=== PATIENT | male | born 1970 | race Caucasian/White ===

== ENCOUNTER 2016-07-01 01:06 | Inpatient (IN) ==
[2016-07-01] MEDS ORDERED: Ondansetron 4 MG/2 ML VIAL IVP ONE ×2 (01:15→02:33)
[2016-07-01] MEDS ORDERED: *HR* HYDROmorphone (PF) 1 MG/ML SYRINGE IVP ONE ×2 (01:15→02:33)
[2016-07-01] MEDS ORDERED: 0.9 % Sodium Chloride 1,000 ML IVC ONE (01:15)
[2016-07-01] MEDS ORDERED: *HR* Promethazine 25 MG/ML VIAL IVP ONE ×2 (01:16→04:34)
--- NOTE | 2016-07-01 01:30 | Emergency Department Note ---
Disposition Clinical Impression: Intractable pain Abdominal pain Qualifiers: Abdominal location: generalized Qualified Code(s): R10.84 - Generalized abdominal pain Nausea & vomiting Qualifiers: Vomiting type: unspecified Vomiting Intractability: unspecified Qualified Code( s): R11.2 - Nausea with vomiting, unspecified Disposition: Admitted As Inpatient Condition: Good Abdominal Pain HPI - General Chief Complaint: ED Abdominal Pain Stated Complaint: upper abdominal pain pancreatic cancer Time Seen by Provider: 07/01/16 01:15 Source: patient Mode of arrival: wheelchair Limitations: no limitations Nursing Notes Reviewed: Yes Vital Signs Reviewed: Yes - History of Present Illness HPI Narrative: 46-year-old male presents to the ER with a chief complaint of abdominal pain nausea and vomiting. Pt Subjective Complaint: abdominal pain Onset (ago): day(s) Consistency: constant Location: epigastric Pain Severity: severe Pain Scale: 9 Quality: stabbing Radiation: none Migration to: no migration Improves with: nothing Worsens with: nothing Context: other (History of pancreatic cancer.) Associated symptoms: Reports: nausea, vomiting. Denies: diarrhea, fever Treatments prior to arrival: none - Related Data Home Medications Medication Instructions Recorded Confirmed Atomoxetine HCl [Strattera] 100 mg PO DAILY 04/25/16 06/08/16 Ibuprofen [Motrin] 800 mg PO BID 04/25/16 06/08/16 Lansoprazole [Prevacid] 30 mg PO DAILY 04/25/16 06/08/16 Loratadine/Pseudoephedrine [[facility] 1 tab PO DAILY 04/25/16 06/08/16 Loratadine-D 24Hr Tablet] Docusate [Colace] 100 mg PO PRN PRN 06/01/16 06/08/16 Previous Rx's Medication Instructions Recorded OxyCODONE Immed Rel [Roxicodone 5 10 mg PO Q6HR PRN #60 tablet 04/27/16 MG] Ondansetron HCl [Zofran] 8 mg PO BID PRN #60 tablet 06/19/16 Ondansetron [Zofran] 8 mg PO BID PRN #60 tablet 06/19/16 Oxycodone HCl 2 tab PO Q6H PRN #240 tab 06/19/16 Promethazine [Phenergan] 25 mg PO Q4H PRN #180 tablet 06/19/16 Peg 3350/Na Sulf,Bicarb,Cl/KCl 4,000 ml PO ONCE #1 soln.recon 06/23/16 [Golytely Solution] FentaNYL PATCH [Duragesic] 50 mcg TD Q72H #10 patch.td72 06/25/16 Lubiprostone [Amitiza] 24 mcg PO BID #60 capsule 06/25/16 OxyCODONE ER (12 HR) [OxyCONTIN] 40 mg PO BID #60 tab.er.12h 06/25/16 PredniSONE 10 mg PO DAILY #30 tablet 06/25/16 Allergies Allergy/AdvReac Type Severity Reaction Status Date / Time hydrocodone Allergy Itching Verified 07/01/16 01:08 Iodinated Contrast Media - Allergy Rash Verified 07/01/16 01:08 Oral and Amoxicillin [From Augmentin] AdvReac Gastrointestinal Verified 07/01/16 01:08 Upset clavulanic acid AdvReac Gastrointestinal Verified 07/01/16 01:08 [From Augmentin] Upset codeine AdvReac Gastrointestinal Verified 07/01/16 01:08 Upset morphine AdvReac Nausea Verified 07/01/16 01:08 All systems ED: reviewed and negative except as stated. Constitutional: Denies: fever Cardiovascular: Denies: chest pain Respiratory: Denies: dyspnea Gastrointestinal: Reports: abdominal pain, nausea, vomiting. Denies: diarrhea Musculoskeletal: Denies: back pain Neurological: Reports: weakness Abdominal Pain PMH - Past Medical History Medical history: Reports: cancer, GERD, hyperlipidemia Reports: diverticulitis Male Surgical History: Reports: other (Partial colectomy) Psychiatric history: Reports: ADHD - Social History Smoking status: Never smoker Alcohol use: Reports: rarely Drug use: Reports: none Physical Exam - General Limitations: no limitations General appearance: alert, in distress - Head Head exam: atraumatic, normocephalic, normal inspection - Eye Eye exam: Present: normal appearance - ENT ENT exam: normal exam - Neck Neck exam: Present: normal inspection - Chest Chest inspection: Present: normal inspection, symmetric chest wall rise - Respiratory Respiratory exam: Present: normal lung sounds bilaterally - Cardiovascular Cardiovascular exam: Present: normal rhythm, tachycardia, normal heart sounds - Abdominal Exam Abdominal exam: Present: tenderness (Diffuse tenderness to palpation.), distention, hyperactive bowel sounds. Absent: guarding, rigidity - Extremities Exam Extremities exam: Present: normal inspection, full ROM - Expanded Lower Extremity Exam Hip/Pelvis exam: Present: normal inspection, full ROM Upper leg exam: Present: normal inspection, full ROM Knee exam: Present: normal inspection, full ROM Lower leg exam: Present: normal inspection, full ROM Ankle exam: Present: normal inspection, full ROM Foot/toe exam: Present: normal inspection, full ROM - Neurological Exam Neurological exam: Present: alert - Psychiatric Psychiatric exam: Present: normal affect, normal mood - Skin Skin exam: Present: warm, dry, intact, normal color Course Course Narrative: 46-year-old male history of pancreatic cancer presents to the ER with a chief complaint of abdominal pain nausea and vomiting. Patient reports that he has not had a true bowel movement in the last 3 weeks. He reports using enemas at home without success. He states that he has not had a bowel movement or passed flatus in the last 24 hours. He states that he has been nauseated and has not been able to keep anything down today. No recent illnesses. No fevers at home. No other complaints. Plan for patient is basic labs, IV for IV fluids pain medications and antiemetics. We will obtain a CT scan of the abdomen and pelvis due to concern for obstruction. - Reevaluation(s) Reevaluation #1: Discussed results of CT scan with the patient and family as well as lab work. Vital Signs Temperature 97.6 F 07/01/16 01:09 Pulse Rate 108 07/01/16 01:09 Respiratory Rate 18 07/01/16 01:09 Blood Pressure 154/122 07/01/16 01:09 O2 Sat by Pulse Oximetry 99 07/01/16 01:09 Temperature 97.6 F 07/01/16 01:09 Pulse Rate 70 07/01/16 02:30 Respiratory Rate 20 07/01/16 02:30 Blood Pressure 149/107 07/01/16 02:30 O2 Sat by Pulse Oximetry 100 07/01/16 02:30 Oxygen Delivery Oxygen Delivery Nasal Cannula Abdominal Pain - MDM Narrative Medical decision making narrative: 46-year-old male history of pancreatic cancer stage IV who presents to the ER due to abdominal pain nausea and vomiting. He was not having bowel movements so we saw the CT of the abdomen and pelvis which shows no obstruction but he does have some small bowel thickening, likely enteritis. He continues to have nausea here despite antiemetics. His pain is responsive to IV analgesics however he continues to have it despite multiple rounds of medications. Patient will be admitted to the hospital for intractable nausea and vomiting, intractable pain. - Lab Data Lab results reviewed: Yes I reviewed the patient's lab results. Result diagrams: 07/01/16 01:31 07/01/16 01:31 Lab Results 07/01/16 07/01/16 Range/Units 01:31 01:31 WBC 7.2 (4.3-11.1) K/mcL RBC 5.13 (4.19-5.50) M/mcL Hgb 15.5 D (12.9-16.9) g/dL Hct 44.5 (37.5-50.1) % MCV 86.7 (83.0-100.0) fL MCH 30.2 (28.0-33.3) pg MCHC 34.8 (31.6-35.5) g/dL RDW 12.1 (11.5-14.5) % Plt Count 401 H (140-400) K/mcL MPV 8.5 L (9.4-12.4) fL Immature Gran % 0.7 (0-4) % Seg Neutrophils % 74.3 % Lymphocytes % 10.7 % Monocytes % 14.0 % Eosinophils % 0.0 % Basophils % 0.3 % Neutrophils # 5.3 (1.6-8.9) K/mcL Lymphocytes # 0.8 (0.6-4.6) K/mcL Monocytes # 1.0 (0.0-1.3) K/mcL Eosinophils # 0.0 (0.0-0.6) K/mcL Basophils # 0.0 (0.0-0.2) K/mcL Immature Plt Fraction 1.6 (1.1-6.1) % Sodium 139 (136-145) mEq/L Potassium 3.6 (3.5-4.5) mEq/L Chloride 96 L (98-109) mEq/L Carbon Dioxide 31 H (19-29) mEq/L BUN 9 (8-26) mg/dL Creatinine 0.92 (0.72-1.25) mg/dL Est GFR ( Amer) > 60 (> 60) Est GFR (Non-Af Amer) > 60 (> 60) BUN/Creatinine Ratio 10 (6-26) Glucose 126 H (70-99) mg/dL Calculated Osmolality 288 (280-300) Calcium 10.1 (8.6-10.8) mg/dL Total Bilirubin 0.6 (0.2-1.2) mg/dL Direct Bilirubin 0.3 (0.0-0.5) mg/dL Indirect Bilirubin 0.3 (0.0-1.2) mg/dL AST 33 (5-34) Units/L ALT 46 (0-55) Units/L Alkaline Phosphatase 170 H (38-126) Units/L Serum Total Protein 7.1 (6.0-8.3) g/dL Albumin 3.4 L (3.5-5.0) g/dL Globulin 3.7 H (2.4-3.5) g/dL Albumin/Globulin Ratio 0.9 L (1.1-2.2) Amylase 32 (25-125) Units/L Lipase 7 L (8-78) Units/L - Radiology Data Radiology results reviewed: Yes I reviewed the patient's radiology results. Abdomen/Pelvis CT 07/01/16 01:19 IMPRESSION: Given differences in technique there is no significant change in the large mass within the distal body and tail of the pancreas Moderate to large amount of ascites with peritoneal implants, omental caking appears similar given differences in technique from the comparison Low-attenuation lesion within the liver does not appear to be significantly changed given differences in technique from the prior study suggestive of metastatic disease Increased of fluid-filled loops of small bowel with scattered air-fluid levels suggestive of a nonspecific enteritis. This is new from the comparison study D/ / Jon Banuelos MD / Jon Banuelos MD Interpreting Provider: Jon Banuelos MD S.B.A.R. - S.B.A.R. Situation: Demographics, MOA Background: Presenting Complaint, Relevant PMH, Meds, & Allergies Assessment: Vital Signs, Course and respsone to treatment, Exam Concerns, Patient/Family Expectation, Pertinant Lab Results, Outstanding Labs Recommendation: Barrier(s) to disposition, Recommendation based on pending studies, treatments, or consults S.B.A.R. Report Given to: Dr. Conley S.[email or web address] Repor Time: 03:14 (Request to give something for stool burden.)
[2016-07-01 01:59] LABS: Basophils % 0.3 %; Hematocrit 44.5 % (37.5-50.1); Hemoglobin 15.5 g/dL (12.9-16.9); Immature Granulocytes % 0.7 % (0-4); Immature Platelets 1.6 % (1.1-6.1); Lymphocytes # 0.8 K/mcL (0.6-4.6); Lymphocytes % 10.7 %; Mean Corpuscular HGB Conc 34.8 g/dL (31.6-35.5); Mean Corpuscular Hemoglobin 30.2 pg (28.0-33.3); Mean Corpuscular Volume 86.7 fL (83.0-100.0); Mean Platelet Volume 8.5 fL (9.4-12.4); Neutrophils # 5.3 K/mcL (1.6-8.9); Platelet Count 401 K/mcL (140-400); Red Blood Count 5.13 M/mcL (4.19-5.50); Red Cell Distribution Width 12.1 % (11.5-14.5); Segmented Neutrophils % 74.3 %
--- NOTE | 2016-07-01 02:00 | Emergency Department Note ---
START Narrative - START START: examined this patient and my medical decision-making was reviewed with the FOOD AND NUTRITION SERVICES SUPERVISOR /PA/Advanced Practice Nurse/Resident Physician. I agree with the documented findings, disposition and treatment plan as described except to the extent set forth below. ED attending note: Patient seen with emergency medicine resident Dr. Beckford. Please see a copy of his note for details of the H&P, evaluation, management and disposition of this patient. 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 Presents with inability to keep down by mouth fluids were current vomiting episodes abdominal pain. Patient is ill-appearing patient is getting IV fluids and analgesics and antiemetics screening blood work and a noncontrast abdominal pelvic CT. Disposition pending.
[2016-07-01 02:13] LABS: Alanine Aminotransferase 46 Units/L (0-55); Albumin 3.4 g/dL (3.5-5.0); Albumin/Globulin Ratio 0.9 (1.1-2.2); Alkaline Phosphatase 170 Units/L (38-126); Amylase 32 Units/L (25-125); Aspartate Amino Transferase 33 Units/L (5-34); BUN/Creatinine Ratio 10 (6-26); Bilirubin,Direct 0.3 mg/dL (0.0-0.5); Bilirubin,Indirect 0.3 mg/dL (0.0-1.2); Bilirubin,Total 0.6 mg/dL (0.2-1.2); Blood Urea Nitrogen 9 mg/dL (8-26); Calcium 10.1 mg/dL (8.6-10.8); Carbon Dioxide 31 mEq/L (19-29); Chloride 96 mEq/L (98-109); Globulin 3.7 g/dL (2.4-3.5); Glucose 126 mg/dL (70-99); Lipase 7 Units/L (8-78); Osmolality,Calculated 288 (280-300); Potassium 3.6 mEq/L (3.5-4.5); Sodium 139 mEq/L (136-145); Total Protein 7.1 g/dL (6.0-8.3); eGFR For African Americans > 60 (> 60); eGFR For Non-African Americans > 60 (> 60)
[2016-07-01 04:12] LABS: Bilirubin,Urine Negative (Negative); Blood,Urine Negative (Negative); Color,Urine Yellow (Yellow); Glucose,Urine (UA) Normal (Normal); Ketones,Urine Negative (Negative); Leukocyte Esterase,Urine Negative (Negative); Nitrite,Urine Negative (Negative); Protein,Urine Negative (Neg-Trace); Specific Gravity,Urine 1.013 (1.010-1.025); Urobilinogen,Urine Normal (Normal)
[2016-07-01 04:14] LABS: Hyaline Casts,Urine None Seen per lpf (None-Few); RBC,Urine 0-3 per hpf (0-3); Squamous Epithelial Cell,Urine Moderate per lpf (None-Few)
[2016-07-01 04:18] LABS: Clarity,Urine Slightly Hazy (Clear)
[2016-07-01 04:29] LABS: Bacteria,Urine Few per hpf (None-Few)
[2016-07-01] MEDS ORDERED: *HR* HYDROmorphone 2 MG/ML SYRINGE IVP ONE (04:34)
[2016-07-01] MEDS ORDERED: *HR* Promethazine 25 MG/ML VIAL IVP PRN (04:46)
[2016-07-01] MEDS ORDERED: Naloxone 0.4 MG/ML INJ IVP PRN (04:46)
[2016-07-01] MEDS ORDERED: *HR* FentaNYL PATCH 50 MCG PATCH TD SCH (05:00)
--- NOTE | 2016-07-01 05:06 | Internal Med History&Physical ---
Date of Encounter: 07/01/16 Time of Encounter: 04:56 Assessment and Plan (1) Intractable pain Current visit: Yes Status: Acute 1. Will start with IV Dilaudid and continue his Fentayl patch. 2. Pt unable to take his home oral meds due to protracted N/V and pain. 3. Adjust pain control as necessary to achieve comfort. Note, patient on high dose opiates at home and has high tolerance. 4. If unable to achieve pain control as above, patient may be candidate for PICK UP AND DELIVERY DRIVER pump. 5. Strict npo except ice chips. 6. Consult general surgery to assist with abdominal pain and for consideration of colonic disimpaction via endoscopy if surgery concurs. 7. Patient may benefit from therapeutic paracentesis again. (2) Nausea & vomiting Current visit: Yes Status: Acute 1. Will treat with Phenergan IV. 2. Add IV PPI. 3. npo for now. Qualifiers: Vomiting type: unspecified Vomiting Intractability: intractable Qualified Code(s): R11.2 - Nausea with vomiting, unspecified (3) Pancreatic cancer Current visit: No Status: Acute 1. Patient follows with oncology as outpatient. 2. Pt may consider palliative chemotherapy (as offered previously). Pt to discuss at follow up. Qualifiers: Pancreatic malignancy location: tail of pancreas Qualified Code(s): C25.2 - Malignant neoplasm of tail of pancreas (4) Chronic steroid use Current visit: Yes Status: Acute 1. Reportedly, patient has only been on Prednisone for the last 4-5 days. 2. Will continue on Solumedrol IV for now and consider tapering off quickly unless otherwise directed by oncology. (5) DVT prophylaxis Current visit: Yes Status: Acute 1. Heparin SQ. Internal Medicine - H&P: HPI Chief complaint: intractable nausea, vomiting, abdominal pain Admitted From: Emergency Dept Plans for Post Hospital Care: Home History of present illness: Mr. Sosa is a 46 year old male who presents to the ER [facility] with complaints of intractable nausea, vomiting, and abdominal pain. Symptoms started several days ago and have progressively worsened despite antiemetics, pain control, and attempts at oral hydration. Unfortunately, he was recently diagnosed with stage IV pancreatic cancer and recently had a therapeutic paracentesis earlier this week for development of ascites. He now has worsening symptoms and he states he has not had a bowel movement in over 3 weeks. He's been unable to pass flatus until this evening in the ER. CT scan done in ER does not suggest obstruction. However, he does have some findings concerning for enteritis and significant constipation. Because of these findings and symptoms, patient was admitted to the hospitalist service. Regarding his pancreatic cancer, he unfortunately is not a candidate for any curative measures. He has been offered chemotherapy, but he has yet to proceed. Past Med Surg Social Fam HX - Past Medical History Attestation: Yes The following information was validated with the patient. Source: patient, old records reviewed Medical history: cancer (stage IV pancreatic), GERD, hyperlipidemia Psychiatric history: ADHD - Past Surgical History Surgical History: orthopedic, other (3 knee surgeries and right thumb surgery, dental implants), other (Diverticular abscess status post sigmoid resection in 2005) - Social History Smoking Status: Never smoker Smokeless Tobacco Status: No Alcohol use: rarely Drug use: none Current living situation: Home, With Family Activity Level: Independent ambulation Recent Out of Country Travel Within the Last 8 Weeks: No - Family History Mother Living Status: Hx Family Cardiac Disorders: Yes (HTN) Hx Family Cancer: Yes (Colon) Hx Family Endocrine Disorder: Yes (Diabetes) Father Living Status: Hx Family Cardiac Disorders: Yes (CAD, AFIB) Hx Family Endocrine Disorder: Yes (cromegaly) Internal Medicine - H&P: Meds Atomoxetine HCl [Strattera] 100 mg PO DAILY 04/25/16 [History] Ibuprofen [Motrin] 800 mg PO BID 04/25/16 [History] Lansoprazole [Prevacid] 30 mg PO DAILY 04/25/16 [History] Loratadine/Pseudoephedrine [[facility]vs Loratadine-D 24Hr Tablet] 1 tab PO DAILY [History] OxyCODONE Immed Rel [Roxicodone 5 MG] 10 mg PO Q6HR PRN #60 tablet 04/27/16 [Rx] Docusate [Colace] 100 mg PO PRN PRN 06/01/16 [History] Ondansetron HCl [Zofran] 8 mg PO BID PRN #60 tablet 06/19/16 [Rx] Ondansetron [Zofran] 8 mg PO BID PRN #60 tablet 06/19/16 [Rx] Oxycodone HCl 2 tab PO Q6H PRN #240 tab 06/19/16 [Rx] Promethazine [Phenergan] 25 mg PO Q4H PRN #180 tablet 06/19/16 [Rx] Peg 3350/Na Sulf,Bicarb,Cl/KCl [Golytely Solution] 4,000 ml PO ONCE #1 soln.recon 06/23/16 [Rx] FentaNYL PATCH [Duragesic] 50 mcg TD Q72H #10 patch.td72 06/25/16 [Rx] Lubiprostone [Amitiza] 24 mcg PO BID #60 capsule 06/25/16 [Rx] OxyCODONE ER (12 HR) [OxyCONTIN] 40 mg PO BID #60 tab.er.12h 06/25/16 [Rx] PredniSONE 10 mg PO DAILY #30 tablet 06/25/16 [Rx] Allergies hydrocodone Allergy (Verified 07/01/16 01:08) Itching Iodinated Contrast Media - Oral and Allergy (Verified 07/01/16 01:08) Rash Amoxicillin [From Augmentin] Adverse Reaction (Verified 07/01/16 01:08) Gastrointestinal Upset clavulanic acid [From Augmentin] Adverse Reaction (Verified 07/01/16 01:08) Gastrointestinal Upset codeine Adverse Reaction (Verified 07/01/16 01:08) Gastrointestinal Upset morphine Adverse Reaction (Verified 07/01/16 01:08) Nausea - Constitutional Constitutional: no chills, no fever(s) - EENT Eyes: no change in vision Ears: no ear pain, no tinnitus Nose, mouth and throat: no nasal congestion, no sinus pressure, no sore throat - Cardiovascular Cardiovascular ROS IM: no chest pain, no dyspnea - Respiratory Respiratory: no cough, no dyspnea, no hemoptysis, no chest congestion - Gastrointestinal Gastrointestinal: abdominal pain, bloating, nausea, vomiting, no diarrhea, no hematemesis, no hematochezia - Genitourinary Genitourinary ROS male: no dysuria, no hematuria - Musculoskeletal Musculoskeletal ROS IM: no arthralgias, no myalgias - Integumentary Integumentary IM: no rash, no jaundice - Neurological Neurological ROS: no dizziness, no focal weakness, no frequent falls - Psychiatric Psychiatric: no anxiety, no depression - Endocrine Endocrine IM: no polydipsia, no polyuria - Constitutional Vitals: Temp Pulse Resp BP Pulse Ox 97.8 F 91 22 146/109 100 07/01/16 04:18 07/01/16 04:18 07/01/16 04:18 07/01/16 04:18 07/01/16 04:18 General appearance: Present: cooperative, mild distress, A&O X 3, pleasant, answers questions appropriately Exam: looks dehydrated - Head Head exam: Present: atraumatic, normal inspection - Expanded Head Exam Head exam expanded: Absent: abrasion, general tenderness - Eye Eye exam: Present: EOMI, PERRL. Absent: scleral icterus Pupils: Present: normal accommodation - ENT ENT exam: Present: mucous membranes dry, normal exam, normal oropharynx - Neck Neck exam general surgery: Present: full ROM, supple. Absent: lymphadenopathy, tenderness - Respiratory Respiratory exam: Present: CTAB. Absent: rales, respiratory distress, rhonchi, wheezes - Cardiovascular Cardiovascular exam: Present: RRR, +S1, +S2. Absent: diastolic murmur, systolic murmur - GI/Abdominal GI/Abdominal exam: Present: distended, hypoactive bowel sounds, tenderness, no peritoneal signs. Absent: guarding, rebound Additional comments: + shifting dullness suggesting ascites; moderate distension; no rebound or guarding; + bowel sounds and patient is passing some flatus now - Extremities Exam Extremities exam: Present: warm. Absent: calf tenderness, pedal edema, tenderness - Back Exam Back exam: Present: normal inspection. Absent: CVA tenderness (L), CVA tenderness (R) - Neurological Exam Neurological exam: Present: alert, CN II-XII intact, oriented X3, no focal deficits - Psychiatric Psychiatric exam: Present: normal affect, normal mood - Skin Skin exam: Present: dry, warm. Absent: rash Internal Med - H&P Results - Labs CBC & Chem 7: 07/01/16 01:31 07/01/16 01:31 Labs: Urine 07/01/16 Range/Units 04:00 Urine Color Yellow (Yellow) Urine Clarity Slightly Hazy (Clear) Urine pH 7.0 (5.0-8.0) pH Units Ur Specific Garber 1.013 (1.010-1.025) Urine Protein Negative (Neg-Trace) mg/dL Urine Glucose (UA) Normal (Normal) mg/dL - Diagnostic Studies CT scan - abdomen Status: image reviewed by me (significant stool noted, loops of bowel with fluid but no obvious obstruciton; report reviewed)
[2016-07-01] MEDS: 0.9 % Sodium Chloride w KCl 20 MEQ/1,000 ML MLS IVC SCH ×3 (05:24→23:00)
[2016-07-01] MEDS ORDERED: Pantoprazole 40 MG VIAL IVP SCH (06:30)
[2016-07-01] MEDS: *HR* Heparin 5,000 UNIT/ML VIAL SQ SCH ×2 (06:30→18:03)
[2016-07-01] MEDS: *HR* HYDROmorphone (PF) 1 MG/ML SYRINGE IVP PRN ×2 (07:40→10:03)
[2016-07-01] MEDS: MethylPREDNISolone 40 MG/ML VIAL IVP SCH (07:40)
[2016-07-01] MEDS ORDERED: Milk and Molasses Enema 200 ML RC ONE ×2 (08:10→11:01)
[2016-07-01] MEDS ORDERED: SODIUM CHLORIDE/NAHCO3/KCL/PEG 4,000 ML SOLN.RECON PO ONE (08:11)
[2016-07-01] MEDS ORDERED: Sucralfate 1 GM TABLET PO SCH (08:13)
[2016-07-01] MEDS: Pantoprazole 40 MG VIAL IVP SCH ×2 (08:53→19:54)
[2016-07-01] MEDS: Nystatin SUSP 5 ML UD.LIQ PO SCH ×5 (09:05→20:00)
[2016-07-01] MEDS ORDERED: *HR* HYDROmorphone 2 MG/ML SYRINGE IVP PRN (10:33)
[2016-07-01] MEDS: Ondansetron 4 MG/2 ML VIAL IVP PRN ×2 (10:46→16:47)
--- NOTE | 2016-07-01 11:55 | General Surgery Consult Note ---
<Jon Dennison - Last Filed: 07/01/16 12:08> Date of Encounter: 07/01/16 Time of Encounter: 10:50 Assessment and Plan (1) Obstipation Current Visit: Yes Status: Acute No bowel movement for the past 3 weeks. Began passing flatus. Milk of molasses enema x2. If no improvement will consult IR for therapeutic barium enema. (2) Intractable pain Current Visit: Yes Status: Acute Patient is on multiple PO and IV pain medications, which is likely the cause of his obstipation. Unable to rule out obstruction at this time. (3) Nausea & vomiting Current Visit: Yes Status: Acute Management per medicine team. NPO at this time. Qualifiers: Vomiting type: unspecified Vomiting Intractability: intractable Qualified Code(s): R11.2 - Nausea with vomiting, unspecified (4) Pancreatic cancer Current Visit: No Status: Acute Management per medicine team. Patient following with oncology as outpatient. Qualifiers: Pancreatic malignancy location: tail of pancreas Qualified Code(s): C25.2 - Malignant neoplasm of tail of pancreas (5) DVT prophylaxis Current Visit: Yes Status: Acute Heparin SQ History of Present Illness Consult date: 07/01/16 Reason for consult: abdominal pain (intractable) Requesting physician: Marshal Villela History of present illness: This is a 46 year old male with stage 4 metastatic pancreatic cancer with intractable abdominal pain. He states that he has not had a bowel movement in the past 3 weeks despite trying Magnesium citrate, dulcolax, fleet enemas, coffee enemas, soap suds enemas, and glycerin suppositories. He complains of mid abdominal pain that radiates to the RLQ that is constant and severe. CT of the abdomen demonstrated inflammation in the terminal ileum. Additionally he reports nausea and inability to keep down food for the last day. He denies fevers and chills. He has not been passing flatus until his arrival to the ED. Past Med Surg Social Fam HX - Past Medical History Medical history: cancer (stage IV pancreatic), GERD, hyperlipidemia Psychiatric history: ADHD - Past Surgical History Surgical History: orthopedic, other (3 knee surgeries and right thumb surgery, dental implants), other (Diverticular abscess status post sigmoid resection in 2005) - Social History Smoking Status: Never smoker Smokeless Tobacco Status: No Alcohol use: rarely Drug use: none - Family History Mother Living Status: Hx Family Cardiac Disorders: Yes (HTN) Hx Family Cancer: Yes (Colon) Hx Family Endocrine Disorder: Yes (Diabetes) Father Living Status: Hx Family Cardiac Disorders: Yes (CAD, AFIB) Hx Family Endocrine Disorder: Yes (cromegaly) Medications and Allergies Atomoxetine HCl [Strattera] 100 mg PO DAILY 04/25/16 [History] Ibuprofen [Motrin] 800 mg PO BID 04/25/16 [History] Lansoprazole [Prevacid] 30 mg PO DAILY 04/25/16 [History] Loratadine/Pseudoephedrine [Cvs Loratadine-D 24Hr Tablet] 1 tab PO DAILY [History] Docusate [Colace] 100 mg PO PRN PRN 06/01/16 [History] Ondansetron HCl [Zofran] 8 mg PO BID PRN #60 tablet 06/19/16 [Rx] Oxycodone HCl 2 tab PO Q6H PRN #240 tab 06/19/16 [Rx] Promethazine [Phenergan] 25 mg PO Q4H PRN #180 tablet 06/19/16 [Rx] FentaNYL PATCH [Duragesic] 50 mcg TD Q72H #10 patch.td72 06/25/16 [Rx] Lubiprostone [Amitiza] 24 mcg PO BID #60 capsule 06/25/16 [Rx] OxyCODONE ER (12 HR) [OxyCONTIN] 40 mg PO BID #60 tab.er.12h 06/25/16 [Rx] PredniSONE 10 mg PO DAILY #30 tablet 06/25/16 [Rx] Allergies hydrocodone Allergy (Verified 07/01/16 01:08) Itching Iodinated Contrast Media - Oral and Allergy (Verified 07/01/16 01:08) Rash Amoxicillin [From Augmentin] Adverse Reaction (Verified 07/01/16 01:08) Gastrointestinal Upset clavulanic acid [From Augmentin] Adverse Reaction (Verified 07/01/16 01:08) Gastrointestinal Upset codeine Adverse Reaction (Verified 07/01/16 01:08) Gastrointestinal Upset morphine Adverse Reaction (Verified 07/01/16 01:08) Nausea Review of Systems All systems PM: A 10-system review of systems was performed and is negative for pertinent findings except as documented above in the HPI. - Constitutional no chills, no fever(s) - Cardiovascular no chest pain, no dyspnea - Respiratory no cough, no dyspnea - Gastrointestinal abdominal pain, bloating, nausea, vomiting, no hematochezia - Genitourinary no dysuria, no hematuria - Musculoskeletal no arthralgias, no myalgias - Integumentary no rash, no jaundice - Neurological no dizziness General Surgery Exam Initial Vital Signs Temp Pulse Resp BP Pulse Ox 97.6 F 108 18 154/122 99 07/01/16 01:09 07/01/16 01:09 07/01/16 01:09 07/01/16 01:09 07/01/16 01:09 - General physical appearance well developed, well nourished, no distress - Eyes normal ocular movement - ENT normal mucosa, atraumatic, normocephalic - Neck trachea midline - Respiratory normal respiratory effort, clear to auscultation - Cardiovascular Cardiovascular exam: Present: RRR - Abdomen Abdomen general surgery: Present: bowel sounds present (hypoactive), soft, distended Abdominal Tenderness: Present: epigastic, RLQ - Integumentary Integumentary general surgery: Present: warm and dry - Neurologic Present: CN 2-12 grossly intact - Musculoskeletal Present: normal posture - Psychiatric Psychiatric general surgery: Present: appropriate, oriented to person, oriented to place, oriented to time, speech is normal, memory intact Exam Initial Vital Signs Temp Pulse Resp BP Pulse Ox 97.6 F 108 18 154/122 99 07/01/16 01:09 07/01/16 01:09 07/01/16 01:09 07/01/16 01:09 07/01/16 01:09 Results - Labs 07/01/16 01:31 07/01/16 01:31 Abnormal lab results Plt Count 401 K/mcL (140-400) H 07/01/16 01:31 MPV 8.5 fL (9.4-12.4) L 07/01/16 01:31 Chloride 96 mEq/L (98-109) L 07/01/16 01:31 Carbon Dioxide 31 mEq/L (19-29) H 07/01/16 01:31 Glucose 126 mg/dL (70-99) H 07/01/16 01:31 Alkaline Phosphatase 170 Units/L (38-126) H 07/01/16 01:31 Albumin 3.4 g/dL (3.5-5.0) L 07/01/16 01:31 Globulin 3.7 g/dL (2.4-3.5) H 07/01/16 01:31 Albumin/Globulin Ratio 0.9 (1.1-2.2) L 07/01/16 01:31 Lipase 7 Units/L (8-78) L 07/01/16 01:31 Ur Squamous Epith Cells Moderate per lpf (None-Few) H 07/01/16 04:00 All other labs normal. Consult Discharge Plan - Plan Referrals: Saundra Stahl MD [Primary Care Provider] - - Attending Attestation I examined this patient and my medical decision-making was reviewed with the LOOM OPERATOR/PA/Advanced Practice Nurse/Resident Physician. I agree with the documented findings, disposition and treatment plan as described except to the extent set forth below. <Cyn Farrell L - Last Filed: 07/02/16 10:51> Date of Encounter: 07/01/16 Assessment and Plan (1) Obstipation Current Visit: Yes Status: Acute will start po go lytely bowel prep and let him sip on it, clear diet will do 2 milk of molassess enemas, if no significant results I will call IR and ask them to come do a therapuetic BE as pt is miserable no signs of perforation, wbc normal, vitals wnl rectal exam showed no stool in rectal vault so unable to disimpact in OR History of Present Illness History of present illness: pt is 46 yo with widely metastatic pancreatic cancer. Has not received any treatment or chemotherapy to date. Has been taking high doses of narcotics to help control his abdominal pain. Has not had a bm in 3 weeks despite multiple outpatient OTC therapies as mentioned by the resident. He is having significant nausea and vomiting and having difficulty keeping anything down po. Past Med Surg Social Fam HX - Past Medical History Source: patient Medical history: cancer (metastatic pancreatic cancer) Review of Systems All systems PM: reviewed and no additional remarkable complaints except as stated All systems PM: A 10-system review of systems was performed and is negative for pertinent findings except as documented above in the HPI. General Surgery Exam Initial Vital Signs Temp Pulse Resp BP Pulse Ox 97.6 F 108 18 154/122 99 07/01/16 01:09 07/01/16 01:09 07/01/16 01:09 07/01/16 01:09 07/01/16 01:09 - General physical appearance well developed, well nourished, moderate distress, moderate pain - Eyes PERRL, normal ocular movement - ENT normal mucosa, atraumatic, normocephalic - Neck trachea midline - Respiratory normal expansion, clear to auscultation - Cardiovascular Cardiovascular exam: Present: no murmurs/rubs/gallops - Abdomen Abdomen general surgery: Present: soft, distended, tender (mildly and diffusely) - Rectum Rectum: Present: other (no stool in rectal vault) - Integumentary Integumentary general surgery: Present: warm and dry - Neurologic Present: CN 2-12 grossly intact - Musculoskeletal Present: normal posture - Psychiatric Psychiatric general surgery: Present: A&Ox3, speech is normal Exam Initial Vital Signs Temp Pulse Resp BP Pulse Ox 97.6 F 108 18 154/122 99 07/01/16 01:09 07/01/16 01:09 07/01/16 01:09 07/01/16 01:09 07/01/16 01:09 Results - Labs 07/02/16 05:16 07/02/16 05:16 Short CBC 07/01/16 Range/Units 01:31 WBC 7.2 (4.3-11.1) K/mcL Hgb 15.5 D (12.9-16.9) g/dL Hct 44.5 (37.5-50.1) % Plt Count 401 H (140-400) K/mcL Neutrophils # 5.3 (1.6-8.9) K/mcL BMP 07/01/16 Range/Units 01:31 Sodium 139 (136-145) mEq/L Potassium 3.6 (3.5-4.5) mEq/L Chloride 96 L (98-109) mEq/L Carbon Dioxide 31 H (19-29) mEq/L BUN 9 (8-26) mg/dL Creatinine 0.92 (0.72-1.25) mg/dL Glucose 126 H (70-99) mg/dL Calcium 10.1 (8.6-10.8) mg/dL Liver Function 07/01/16 Range/Units 01:31 Total Bilirubin 0.6 (0.2-1.2) mg/dL Direct Bilirubin 0.3 (0.0-0.5) mg/dL AST 33 (5-34) Units/L ALT 46 (0-55) Units/L Alkaline Phosphatase 170 H (38-126) Units/L Albumin 3.4 L (3.5-5.0) g/dL Urine 07/01/16 Range/Units 04:00 Urine Color Yellow (Yellow) Urine Clarity Slightly Hazy (Clear) Urine pH 7.0 (5.0-8.0) pH Units Ur Specific [place] 1.013 (1.010-1.025) Urine Protein Negative (Neg-Trace) mg/dL Urine Glucose (UA) Normal (Normal) mg/dL Vital Signs Temp Pulse Resp BP Pulse Ox 07/01/16 10:58 97.8 F 80 16 158/112 100 07/01/16 07:20 97.6 F 91 16 160/115 100 07/01/16 04:18 97.8 F 91 22 146/109 100 07/01/16 03:37 20 155/110 07/01/16 02:30 70 20 149/107 100 07/01/16 02:00 82 20 149/113 94 L 07/01/16 01:30 96 20 146/121 98 07/01/16 01:20 100 07/01/16 01:15 99 20 139/107 100 07/01/16 01:09 97.6 F 108 18 154/122 99 Intake and Output 06/30/16 07/01/16 07/01/16 23:59 07:59 15:59 Intake Total 1000 / 1000 572 / 572 Output Total 0 / 0 Balance 1000 / 1000 572 / 572 Intake: IV Fluids 1000 / 1000 512 / 512 0.9 % Sodium Chloride 1, 1000 / 1000 000 ML @ 3750 mls/hr IVC .Q16M ONE Rx#:[id number] KCl 20 mEq in 0.9% Sodium 512 / 512 Chloride 20 meq In 1,000 ml @ 125 mls/hr IVC .Q8H TAMARA Rx#:[id number] Oral 0 / 0 60 / 60 Output: Urine 0 / 0 Other: Meal ice chips Percent of Meal Consumed 0% Stool Characteristics Normal for Patient Stool Color Brown # Voids 1 1 Weight 77.519 kg Patient Weight 07/01/16 23:59 Weight 77.519 kg - Imaging CT scan - abdomen: report reviewed, image reviewed CT scan - pelvis: report reviewed, image reviewed Additional studies: Abdomen/Pelvis CT 07/01/16 01:19 IMPRESSION: Given differences in technique, there is no significant change in the large mass within the distal body and tail of the pancreas. Moderate to large amount of ascites with peritoneal implants and omental caking, which appears similar given differences in technique from the comparison. Low-attenuation lesion within the liver does not appear to be significantly changed, given differences in technique from the prior study, suggestive of metastatic disease Increased fluid-filled loops of small bowel with scattered air-fluid levels, suggestive of a nonspecific enteritis. This is new from the comparison study. D/ / 07/01/2016 07:44:38 Jon Banuelos MD / ben Interpreting Provider: Jon Banuelos MD
[2016-07-01] MEDS ORDERED: *HR* Promethazine 25 MG/ML VIAL ONE (13:28)
[2016-07-01] MEDS: *HR* Promethazine 25 MG/ML VIAL IVP SCH ×2 (13:44→19:59)
--- NOTE | 2016-07-01 14:51 | Palliative - Consult Note ---
Date of Encounter: 07/01/16 Time of Encounter: 14:45 Palliative-CN HPI - Data of Consult Requesting Physician: Maggy Velazquez Primary Care Provider: Saundra [facility] - Consult Narrative History of present illness: Mr. Sosa is a 46 year old male CC: Maggy Velazquez Past Med Surg Social Fam HX - Past Medical History Medical history: cancer (stage IV pancreatic), GERD, hyperlipidemia Psychiatric history: ADHD - Past Surgical History Surgical History: orthopedic, other (3 knee surgeries and right thumb surgery, dental implants), other (Diverticular abscess status post sigmoid resection in 2005) - Social History Smoking Status: Never smoker Smokeless Tobacco Status: No Alcohol use: rarely Drug use: none - Family History Mother Living Status: Hx Family Cardiac Disorders: Yes (HTN) Hx Family Cancer: Yes (Colon) Hx Family Endocrine Disorder: Yes (Diabetes) Father Living Status: Hx Family Cardiac Disorders: Yes (CAD, AFIB) Hx Family Endocrine Disorder: Yes (cromegaly) Medications and Allergies Atomoxetine HCl [Strattera] 100 mg PO DAILY 04/25/16 [History] Ibuprofen [Motrin] 800 mg PO BID 04/25/16 [History] Lansoprazole [Prevacid] 30 mg PO DAILY 04/25/16 [History] Loratadine/Pseudoephedrine [Cvs Loratadine-D 24Hr Tablet] 1 tab PO DAILY [History] Docusate [Colace] 100 mg PO PRN PRN 06/01/16 [History] Ondansetron HCl [Zofran] 8 mg PO BID PRN #60 tablet 06/19/16 [Rx] Oxycodone HCl 2 tab PO Q6H PRN #240 tab 06/19/16 [Rx] Promethazine [Phenergan] 25 mg PO Q4H PRN #180 tablet 06/19/16 [Rx] FentaNYL PATCH [Duragesic] 50 mcg TD Q72H #10 patch.td72 06/25/16 [Rx] Lubiprostone [Amitiza] 24 mcg PO BID #60 capsule 06/25/16 [Rx] OxyCODONE ER (12 HR) [OxyCONTIN] 40 mg PO BID #60 tab.er.12h 06/25/16 [Rx] PredniSONE 10 mg PO DAILY #30 tablet 06/25/16 [Rx] Allergies hydrocodone Allergy (Verified 07/01/16 01:08) Itching Iodinated Contrast Media - Oral and Allergy (Verified 07/01/16 01:08) Rash Amoxicillin [From Augmentin] Adverse Reaction (Verified 07/01/16 01:08) Gastrointestinal Upset clavulanic acid [From Augmentin] Adverse Reaction (Verified 07/01/16 01:08) Gastrointestinal Upset codeine Adverse Reaction (Verified 07/01/16 01:08) Gastrointestinal Upset morphine Adverse Reaction (Verified 07/01/16 01:08) Nausea Palliative Care-Exam - Constitutional Vitals: Temp Pulse Resp BP Pulse Ox 97.8 F 80 16 158/112 100 07/01/16 10:58 07/01/16 10:58 07/01/16 10:58 07/01/16 10:58 07/01/16 10:58 Internal Medicine - CN: Reslt - Labs CBC & Chem 7: 07/01/16 01:31 07/01/16 01:31 Labs: Urine 07/01/16 Range/Units 04:00 Urine Color Yellow (Yellow) Urine Clarity Slightly Hazy (Clear) Urine pH 7.0 (5.0-8.0) pH Units Ur Specific [place] 1.013 (1.010-1.025) Urine Protein Negative (Neg-Trace) mg/dL Urine Glucose (UA) Normal (Normal) mg/dL Consult Discharge Plan - Plan Referrals: Saundra Stahl MD [Primary Care Provider] - Palliative Quality Code Status: 07/01/16 04:46 Resuscitation Status: Active [RES] Routine Comment: Resuscitation Status: Full Code
--- NOTE | 2016-07-01 15:02 | Palliative - Consult Note ---
Date of Encounter: 07/01/16 Time of Encounter: 14:50 - Assessment and Plan (1) Cancer associated pain Current Visit: Yes Status: Acute Assessment and plan: Patient remains on Fentanyl patch at 50mcg, but unable to tolerate Oxycodone/ Oxycontin at this time. Will begin Dilaudid COLLEGE SCOUTING COORDINATOR with basal dose and COLLEGE SCOUTING COORDINATOR for breakthrough. Continue Fentanyl patch. His patch dose may need increased if pain still issue once constipation resolved. He takes Oxycontin 40 every 12 hours as well as Oxycodone for breakthrough pain. states his dose of Oxycodone was 20mg - but patient states he was having to take 40mg and this was only holding him about 3 hours. will monitor and adjust as necessary. (2) Nausea & vomiting Current Visit: Yes Status: Acute Assessment and plan: He continues with Promethazine and Ondansetron. Staff nurse alternating meds to assist with nausea. Qualifiers: Vomiting type: unspecified Vomiting Intractability: intractable Qualified Code(s): R11.2 - Nausea with vomiting, unspecified (3) Therapeutic opioid-induced constipation (OIC) Current Visit: Yes Status: Acute Assessment and plan: Surgery currently managing. Will follow along. (4) Pancreatic cancer Current Visit: No Status: Acute Qualifiers: Pancreatic malignancy location: tail of pancreas Qualified Code(s): C25.2 - Malignant neoplasm of tail of pancreas Palliative-CN HPI - Data of Consult Consult date: 07/01/16 Requesting Physician: Maggy Velazquez [facility] [place] [facility] Narrative History of present illness: Mr. Sosa is a 46 year old male with a recent diagnosis of metastatic pancreatic cancer, who presented with increasing abd pain, constipation and nausea and vomiting unrelieved by medications at home. He is pt of Dr. Hi del rosario at [facility]. Originally had consult with [facility], but they had no surgical option for pt. He had utilized many different laxatives, enemas and has been treated for opioid induced constipation. Has been 3 weeks since last significant bowel movement. He has been unable to keep down his oral pain medications, and Palliative was asked to assist with pain management while in hospital and being treated for acute symptoms. Dr. Farrell and resident has been consulted and assisting with constipation. He had milk/molasses enema this am, and pt states that he did finally have significant bowel movement. He was actually in the bathroom at the time of my initial visit, and is very tired, but feeling slightly better. He is requesting a Dilaudid regional engagement consultant to assist with pain management until po meds can be tolerated. His , Dona is at bedside. CC: Maggy Velazquez Past Med Surg Social Fam HX - Past Medical History Medical history: cancer (stage IV pancreatic), GERD, hyperlipidemia Psychiatric history: ADHD - Past Surgical History Surgical History: orthopedic, other (3 knee surgeries and right thumb surgery, dental implants), other (Diverticular abscess status post sigmoid resection in 2005) - Social History Smoking Status: Never smoker Smokeless Tobacco Status: No Alcohol use: rarely Drug use: none - Family History Mother Living Status: Hx Family Cardiac Disorders: Yes (HTN) Hx Family Cancer: Yes (Colon) Hx Family Endocrine Disorder: Yes (Diabetes) Father Living Status: Hx Family Cardiac Disorders: Yes (CAD, AFIB) Hx Family Endocrine Disorder: Yes (cromegaly) Medications and Allergies Atomoxetine HCl [Strattera] 100 mg PO DAILY 04/25/16 [History] Ibuprofen [Motrin] 800 mg PO BID 04/25/16 [History] Lansoprazole [Prevacid] 30 mg PO DAILY 04/25/16 [History] Loratadine/Pseudoephedrine [Cvs Loratadine-D 24Hr Tablet] 1 tab PO DAILY [History] Docusate [Colace] 100 mg PO PRN PRN 06/01/16 [History] Ondansetron HCl [Zofran] 8 mg PO BID PRN #60 tablet 06/19/16 [Rx] Oxycodone HCl 2 tab PO Q6H PRN #240 tab 06/19/16 [Rx] Promethazine [Phenergan] 25 mg PO Q4H PRN #180 tablet 06/19/16 [Rx] FentaNYL PATCH [Duragesic] 50 mcg TD Q72H #10 patch.td72 06/25/16 [Rx] Lubiprostone [Amitiza] 24 mcg PO BID #60 capsule 06/25/16 [Rx] OxyCODONE ER (12 HR) [OxyCONTIN] 40 mg PO BID #60 tab.er.12h 06/25/16 [Rx] PredniSONE 10 mg PO DAILY #30 tablet 06/25/16 [Rx] Allergies hydrocodone Allergy (Verified 07/01/16 01:08) Itching Iodinated Contrast Media - Oral and Allergy (Verified 07/01/16 01:08) Rash Amoxicillin [From Augmentin] Adverse Reaction (Verified 07/01/16 01:08) Gastrointestinal Upset clavulanic acid [From Augmentin] Adverse Reaction (Verified 07/01/16 01:08) Gastrointestinal Upset codeine Adverse Reaction (Verified 07/01/16 01:08) Gastrointestinal Upset morphine Adverse Reaction (Verified 07/01/16 01:08) Nausea All systems: reviewed and no additional remarkable complaints except as stated ( n/v,constipation, poor appetite, abd pain and distention) Palliative Care-Exam - Constitutional Vitals: Temp Pulse Resp BP Pulse Ox 97.8 F 80 16 158/112 100 07/01/16 10:58 07/01/16 10:58 07/01/16 10:58 07/01/16 10:58 07/01/16 10:58 General appearance: Present: mild distress - Head Head Exam: Present: normal inspection, normocephalic - Eye Eye exam: Present: normal appearance, PERRL - Respiratory Respiratory exam: Present: decreased breath sounds, CTAB - Cardiovascular Cardiovascular exam: Present: +S1, +S2 - GI/Abdominal Exam GI/Abdominal exam: Present: distended, firm, tenderness - Extremities Exam Extremities exam: Present: normal capillary refill, normal inspection - Neurological Exam Neurological exam: Present: alert, oriented X3, strengths equal and symetr throughout - Skin Skin exam: Present: dry, pallor, warm Internal Medicine - CN: Reslt - Labs CBC & Chem 7: 07/01/16 01:31 07/01/16 01:31 Labs: Urine 07/01/16 Range/Units 04:00 Urine Color Yellow (Yellow) Urine Clarity Slightly Hazy (Clear) Urine pH 7.0 (5.0-8.0) pH Units Ur Specific [place] 1.013 (1.010-1.025) Urine Protein Negative (Neg-Trace) mg/dL Urine Glucose (UA) Normal (Normal) mg/dL Consult Discharge Plan - Plan Referrals: Saundra Stahl MD [Primary Care Provider] - Palliative Quality Palliative Quality: Screen for Code Status: NA (pt feeling to poorly at this time), Screen for Goals of Care: NA, Screen for Pain: Yes, If Pain Regimen Started, Initiate Bowel Regimen: Yes, Screen for Nausea/Vomitting: Yes Code Status: 07/01/16 04:46 Resuscitation Status: Active [RES] Routine Comment: Resuscitation Status: Full Code
[2016-07-01] MEDS: *HR* HYDROmorphone 20 MG/20 ML PCA IVC PRN (15:07)
--- NOTE | 2016-07-01 16:29 | Event Note ---
Date of Encounter: 07/01/16 Time of Encounter: 08:30 Patient with stage IV pancreatic cancer with metastais admitted for abdominal pain CT abdomen did not show any obstruction but does show metastatic pancreatic cancer with ascites. Gen. surgery was consulted, started on GoLYTELY preparation and given milk and molasses enema 2. Patient has severe pain, currently on IV Dilaudid and fentanyl patch. We will consult palliative , plan to start on SPEEDER TENDER pump as inpatient for better pain control. DVT prophylaxis, we will follow surgical recommendations.
[2016-07-01] MEDS ORDERED: Polyethylene Glycol 3350 255 GM POWDER PO ONE (17:37)
[2016-07-02] MEDS: *HR* Promethazine 25 MG/ML VIAL IVP SCH ×3 (00:13→08:13)
[2016-07-02 05:30] LABS: Basophils % 0.6 %; Eosinophils % 0.3 %; Hematocrit 44.2 % (37.5-50.1); Hemoglobin 14.9 g/dL (12.9-16.9); Immature Granulocytes % 0.7 % (0-4); Lymphocytes # 0.6 K/mcL (0.6-4.6); Mean Corpuscular HGB Conc 33.7 g/dL (31.6-35.5); Mean Corpuscular Hemoglobin 29.6 pg (28.0-33.3); Mean Corpuscular Volume 87.9 fL (83.0-100.0); Mean Platelet Volume 8.3 fL (9.4-12.4); Monocytes # 1.1 K/mcL (0.0-1.3); Monocytes % 14.8 %; Neutrophils # 5.4 K/mcL (1.6-8.9); Platelet Count 337 K/mcL (140-400); Red Blood Count 5.03 M/mcL (4.19-5.50); Red Cell Distribution Width 12.3 % (11.5-14.5); Segmented Neutrophils % 75.6 %
[2016-07-02 05:34] LABS: INR 1.1; Prothrombin Time 11.9 Seconds (9.4-12.1)
[2016-07-02 05:37] LABS: Activated Partial Thrombo Time 25.9 Seconds (26.0-36.0)
[2016-07-02 05:48] LABS: Alanine Aminotransferase 37 Units/L (0-55); Albumin 3.2 g/dL (3.5-5.0); Albumin/Globulin Ratio 0.9 (1.1-2.2); Alkaline Phosphatase 161 Units/L (38-126); Aspartate Amino Transferase 24 Units/L (5-34); BUN/Creatinine Ratio 12 (6-26); Bilirubin,Total 0.7 mg/dL (0.2-1.2); Blood Urea Nitrogen 9 mg/dL (8-26); Calcium 9.2 mg/dL (8.6-10.8); Carbon Dioxide 24 mEq/L (19-29); Chloride 102 mEq/L (98-109); Globulin 3.6 g/dL (2.4-3.5); Glucose 147 mg/dL (70-99); Osmolality,Calculated 285 (280-300); Potassium 3.8 mEq/L (3.5-4.5); Sodium 137 mEq/L (136-145); Total Protein 6.8 g/dL (6.0-8.3); eGFR For African Americans > 60 (> 60); eGFR For Non-African Americans > 60 (> 60)
[2016-07-02] MEDS: 0.9 % Sodium Chloride w KCl 20 MEQ/1,000 ML MLS IVC SCH ×3 (06:08→23:49)
[2016-07-02] MEDS: *HR* Heparin 5,000 UNIT/ML VIAL SQ SCH ×2 (06:08→20:06)
[2016-07-02] MEDS: *HR* HYDROmorphone 20 MG/20 ML PCA IVC PRN ×2 (06:47→19:54)
--- NOTE | 2016-07-02 07:39 | General Surgery Progress Note ---
<Jon Dennison - Last Filed: 07/02/16 07:37> Date of Encounter: 07/02/16 Time of Encounter: 07:37 - Assessment and Plan (1) Obstipation Current Visit: Yes Status: Acute Continue go lytely bowel prep with sips as tolerated. Repeat milk of molasses enema. (2) Intractable pain Current Visit: Yes Status: Acute Patient is on multiple PO and IV pain medications, which is likely the cause of his obstipation. Unable to rule out obstruction at this time. (3) Nausea & vomiting Current Visit: Yes Status: Acute Patient declined scopolamine patch. Continue management per medicine team. Qualifiers: Vomiting type: unspecified Vomiting Intractability: intractable Qualified Code(s): R11.2 - Nausea with vomiting, unspecified (4) Pancreatic cancer Current Visit: No Status: Acute Management per medicine team. Patient following with oncology as outpatient. Qualifiers: Pancreatic malignancy location: tail of pancreas Qualified Code(s): C25.2 - Malignant neoplasm of tail of pancreas (5) DVT prophylaxis Current Visit: Yes Status: Acute Heparin SQ Subjective Patient reports: still having pain Narrative: The patient states that he feels about the same as yesterday and continues to have bloating, pain, and nausea. He has not had a bowel movement since yesterday afternoon. He states he wishes to retry the enemas that were given yesterday as he feels they gave him some progress. Objective Vital Signs - Last 8 Hours Temp Pulse Resp BP Pulse Ox 07/02/16 05:29 98.4 F 78 15 158/109 96 07/02/16 00:12 99.3 F 99 15 157/114 99 Intake and Output 07/01/16 07/01/16 07/02/16 15:59 23:59 07:59 Intake Total 1060 / 1060 1000 / 1000 1000 / 1000 Output Total 0 / 0 0 / 0 Balance 1060 / 1060 1000 / 1000 1000 / 1000 Intake: IV Fluids 1000 / 1000 1000 / 1000 1000 / 1000 KCl 20 mEq in 0.9% Sodium 1000 / 1000 1000 / 1000 1000 / 1000 Chloride 20 meq In 1,000 ml @ 125 mls/hr IVC .Q8H TAMARA Rx#:[id number] Oral 60 / 60 Output: Urine 0 / 0 0 / 0 Other: Meal ice chips Percent of Meal Consumed 0% Stool Size Large Stool Consistency loose Stool Color Brown # Voids 1 3 # Bowel Movements 1 - General physical appearance well developed, well nourished, no distress, severe distress - Eyes normal ocular movement - ENT normal pinna, normal nares, normal mucosa, no hearing loss, no congestion - Neck Neck exam: trachea midline - Respiratory normal respiratory effort, clear to auscultation - Cardiovascular Cardiovascular exam: Present: RRR - Abdomen Abdomen: Present: bowel sounds present, soft, distended, tender (diffuselly) - Integumentary no rash - Neurologic CN 2-12 grossly intact - Musculoskeletal normal posture - Psychiatric oriented to time, oriented to person, oriented to place, speech is normal, memory intact - Labs 07/02/16 05:16 07/02/16 05:16 Diabetes panel 07/02/16 Range/Units 05:16 Sodium 137 (136-145) mEq/L Potassium 3.8 (3.5-4.5) mEq/L Chloride 102 (98-109) mEq/L Carbon Dioxide 24 (19-29) mEq/L BUN 9 (8-26) mg/dL Creatinine 0.77 (0.72-1.25) mg/dL Glucose 147 H (70-99) mg/dL Calcium 9.2 (8.6-10.8) mg/dL AST 24 (5-34) Units/L ALT 37 (0-55) Units/L Alkaline Phosphatase 161 H (38-126) Units/L Albumin 3.2 L (3.5-5.0) g/dL Calcium panel 07/02/16 Range/Units 05:16 Calcium 9.2 (8.6-10.8) mg/dL Albumin 3.2 L (3.5-5.0) g/dL Pituitary panel 07/02/16 Range/Units 05:16 Sodium 137 (136-145) mEq/L Potassium 3.8 (3.5-4.5) mEq/L Chloride 102 (98-109) mEq/L Carbon Dioxide 24 (19-29) mEq/L BUN 9 (8-26) mg/dL Creatinine 0.77 (0.72-1.25) mg/dL Glucose 147 H (70-99) mg/dL Calcium 9.2 (8.6-10.8) mg/dL Adrenal panel 07/02/16 Range/Units 05:16 Sodium 137 (136-145) mEq/L Potassium 3.8 (3.5-4.5) mEq/L Chloride 102 (98-109) mEq/L Carbon Dioxide 24 (19-29) mEq/L BUN 9 (8-26) mg/dL Creatinine 0.77 (0.72-1.25) mg/dL Glucose 147 H (70-99) mg/dL Calcium 9.2 (8.6-10.8) mg/dL Total Bilirubin 0.7 (0.2-1.2) mg/dL AST 24 (5-34) Units/L ALT 37 (0-55) Units/L Alkaline Phosphatase 161 H (38-126) Units/L Albumin 3.2 L (3.5-5.0) g/dL Consult Discharge Plan - Plan Referrals: Saundra Stahl MD [Primary Care Provider] - - Attending Attestation I examined this patient and my medical decision-making was reviewed with the BUILDING CONSTRUCTION CONTRACTOR/PA/Advanced Practice Nurse/Resident Physician. I agree with the documented findings, disposition and treatment plan as described except to the extent set forth below. <Cyn Farrell - Last Filed: 07/02/16 15:35> Date of Encounter: 07/02/16 Time of Encounter: 12:00 - Assessment and Plan (1) Obstipation Current Visit: Yes Status: Acute (2) Cancer associated pain Current Visit: Yes Status: Acute palliative has been consulted to help manage pain (3) Intractable pain Current Visit: Yes Status: Acute (4) Nausea & vomiting Current Visit: Yes Status: Acute he seems to be tolerating the alternating zofran and promethazine Qualifiers: Vomiting type: unspecified Vomiting Intractability: intractable Qualified Code(s): R11.2 - Nausea with vomiting, unspecified (5) Therapeutic opioid-induced constipation (OIC) Current Visit: Yes Status: Acute he has had decent results with sipping on either miralax or go lytely bowel prep and several milk of molasses enemas he is distended and tympanetic without significant flatus today he felt better and sipped on some clears discussed not pushing further today with diet or bowel prep, ok to sip on things if he feels up to it no further enemas today discussed doing a sbft likely tomorrow if no significant nausea and has less distention, may help further clean him out and will give info as to whether any part of his abdominal pain is perhaps caused by any bowel obstruction due to tumor or mets. Subjective Narrative: patient had several bowel movements yesterday and one today, not passing a lot of flatus abdomen distended continued nausea, mostly controlled with antiemetics pain improved compared to yesterday but now on certified alcohol drug counselor pump Objective Vital Signs - Last 8 Hours Temp Pulse Resp BP Pulse Ox 07/02/16 14:46 98.5 F 86 14 164/115 99 Intake and Output 07/01/16 07/02/16 07/02/16 23:59 07:59 15:59 Intake Total 1000 / 1000 1000 / 1000 1000 / 1000 Output Total 0 / 0 0 / 0 Balance 1000 / 1000 1000 / 1000 1000 / 1000 Intake: IV Fluids 1000 / 1000 1000 / 1000 1000 / 1000 KCl 20 mEq in 0.9% Sodium 1000 / 1000 1000 / 1000 1000 / 1000 Chloride 20 meq In 1,000 ml @ 125 mls/hr IVC .Q8H T[facility]ARA Rx#:[id number] Output: Urine 0 / 0 0 / 0 Other: Stool Size Moderate Stool Consistency loose Stool Color Brown # Voids 3 2 - General physical appearance well developed, well nourished, moderate distress, moderate pain - Eyes PERRL, normal ocular movement - ENT dry mucosa, atraumatic, normocephalic - Neck Neck exam: trachea midline - Respiratory normal expansion, clear to auscultation - Cardiovascular Cardiovascular exam: Present: RRR - Abdomen Abdomen: Present: soft, tympanic, distended, tender (mildly diffusely). Absent : guarding, rebound - Integumentary no rash, no growths - Neurologic CN 2-12 grossly intact - Musculoskeletal normal posture - Psychiatric oriented to time, oriented to person, oriented to place, speech is normal, memory intact - Labs 07/02/16 05:16 07/02/16 05:16 Short CBC 07/02/16 Range/Units 05:16 WBC 7.1 (4.3-11.1) K/mcL Hgb 14.9 (12.9-16.9) g/dL Hct 44.2 (37.5-50.1) % Plt Count 337 (140-400) K/mcL Neutrophils # 5.4 (1.6-8.9) K/mcL BMP 07/02/16 Range/Units 05:16 Sodium 137 (136-145) mEq/L Potassium 3.8 (3.5-4.5) mEq/L Chloride 102 (98-109) mEq/L Carbon Dioxide 24 (19-29) mEq/L BUN 9 (8-26) mg/dL Creatinine 0.77 (0.72-1.25) mg/dL Glucose 147 H (70-99) mg/dL Calcium 9.2 (8.6-10.8) mg/dL Liver Function 07/02/16 Range/Units 05:16 Total Bilirubin 0.7 (0.2-1.2) mg/dL AST 24 (5-34) Units/L ALT 37 (0-55) Units/L Alkaline Phosphatase 161 H (38-126) Units/L Albumin 3.2 L (3.5-5.0) g/dL Vital Signs Temp Pulse Resp BP Pulse Ox 07/02/16 14:46 98.5 F 86 14 164/115 99 07/02/16 05:29 98.4 F 78 15 158/109 96 07/02/16 00:12 99.3 F 99 15 157/114 99 07/01/16 20:32 98.9 F 90 20 146/110 97 07/01/16 15:33 98.7 F 80 16 160/116 97 Intake and Output 07/01/16 07/02/16 07/02/16 23:59 07:59 15:59 Intake Total 1000 / 1000 1000 / 1000 1000 / 1000 Output Total 0 / 0 0 / 0 Balance 1000 / 1000 1000 / 1000 1000 / 1000 Intake: IV Fluids 1000 / 1000 1000 / 1000 1000 / 1000 KCl 20 mEq in 0.9% Sodium 1000 / 1000 1000 / 1000 1000 / 1000 Chloride 20 meq In 1,000 ml @ 125 mls/hr IVC .Q8H [facility]ARA Rx#:[id number] Output: Urine 0 / 0 0 / 0 Other: Stool Size Moderate Stool Consistency loose Stool Color Brown # Voids 3 2
[2016-07-02] MEDS ORDERED: Milk and Molasses Enema 200 ML RC ONE (07:44)
[2016-07-02] MEDS: MethylPREDNISolone 40 MG/ML VIAL IVP SCH (08:21)
[2016-07-02] MEDS: Pantoprazole 40 MG VIAL IVP SCH ×2 (08:22→20:06)
[2016-07-02] MEDS: Nystatin SUSP 5 ML UD.LIQ PO SCH ×4 (08:58→20:06)
--- NOTE | 2016-07-02 09:10 | Palliative Progress Note ---
Date of Encounter: 07/02/16 Time of Encounter: 09:45 - Assessment and plan (1) Abdominal pain Current Visit: Yes Status: Acute Assessment and plan: The patient is currently on a fentanyl patch as well as a Dilaudid pump. There is some synergy between fentanyl and Dilaudid and will continue both I will increase the fentanyl patch to 75 today. Consult with pharmacy regarding medications. Also consulted interventional pain after the patient agreed to speak to them, regarding the possibility of celiac block versus spinal stimulation for chronic abdominal pain secondary to the pancreatic cancer. J need to follow. Qualifiers: Abdominal location: generalized Qualified Code(s): R10.84 - Generalized abdominal pain (2) Goals of care, counseling/discussion Current Visit: Yes Status: Acute Assessment and plan: Currently full code. Not discussed CODE STATUS with him at this point in time as we are still developing his goals of care. He is okay with passing, however he wishes to stay for as long as he can and be as comfortable as he can. Will discuss CODE STATUS further after we get his bowels cleaned out, and get his pain under better control. (3) Cancer associated pain Current Visit: Yes Status: Acute Assessment and plan: Currently I am collaborating with pharmacy and with interventional pain to smooth out his pain experience. We will adjust his pain medications and see if there are any H any interventions interventional pain has to offer to him as well. (4) Nausea & vomiting Current Visit: Yes Status: Acute Assessment and plan: he is currently requesting making his Phenergan 25 mg and Zofran 8 mg at 2 hour intervals so he can have one of the other every 4 hours as needed. I have made this adjustment we will continue to watch. Qualifiers: Vomiting type: unspecified Vomiting Intractability: intractable Qualified Code(s): R11.2 - Nausea with vomiting, unspecified (5) Obstipation Current Visit: Yes Status: Acute Assessment and plan: Surgery is following and the patient does seem to be responding to enemas. No new recommendations at this time. (6) Pancreatic cancer Current Visit: No Status: Acute Assessment and plan: Per the patient already diagnosed as metastatic. Considering chemotherapy although at this time he seems to be leaning away from it. Qualifiers: Pancreatic malignancy location: tail of pancreas Qualified Code(s): C25.2 - Malignant neoplasm of tail of pancreas - Time Spent With Patient Total time spent is greater than 50% in coordination of care (as documented) at patient's floor/unit and/or counseling patient: - Subjective Interval history: The patient has used a total of 17.6 mg Dilaudid via [employer] pump in the last 24 hours.He reports pain is tolerable but not gone. Pt has had small bm's but still feels bloated and he will feels obstipated. Nausea is under better control. He is tolerating ice chips and clear liquids. He feels the nausea could be under even better control with increase in his Phenergan 25 and Zofran 8 and have them alternating so is having one of the other every 4 hours. - Constitutional Vitals: Abnormal lab results MPV 8.3 fL (9.4-12.4) L 07/02/16 05:16 APTT 25.9 Seconds (26.0-36.0) L 07/02/16 05:16 Glucose 147 mg/dL (70-99) H 07/02/16 05:16 Alkaline Phosphatase 161 Units/L (38-126) H 07/02/16 05:16 Albumin 3.2 g/dL (3.5-5.0) L 07/02/16 05:16 Globulin 3.6 g/dL (2.4-3.5) H 07/02/16 05:16 Albumin/Globulin Ratio 0.9 (1.1-2.2) L 07/02/16 05:16 Lipase 7 Units/L (8-78) L 07/01/16 01:31 Ur Squamous Epith Cells Moderate per lpf (None-Few) H 07/01/16 04:00 General appearance: Present: mild distress (Secondary to abdominal pain and nausea) - Head Head exam: Present: atraumatic, normal inspection - Eye Eye exam: Present: normal appearance - Neck Neck exam: Present: normal inspection - Respiratory Respiratory exam: Present: CTAB - Cardiovascular Cardiovascular exam: Present: RRR - GI/Abdominal GI/Abdominal exam: Present: distended, firm, normal bowel sounds, tenderness - Extremities Exam Extremities exam: Present: normal inspection. Absent: pedal edema - Neurological Exam Neurological exam: Present: alert, oriented X3 - Psychiatric Psychiatric exam: Present: normal affect, normal mood. Absent: agitated, anxious - Skin Skin exam: Present: dry, warm Palliative Quality Palliative Quality: Screen for Code Status: Yes (pt feeling to poorly at this time), Screen for Goals of Care: Yes, Screen for Pain: Yes, If Pain Regimen Started, Initiate Bowel Regimen: Yes, Screen for Nausea/Vomitting: Yes Code Status: 07/01/16 04:46 Resuscitation Status: Active [RES] Routine Comment: Resuscitation Status: Full Code - Labs CBC & Chem 7: 07/02/16 05:16 07/02/16 05:16 Labs: Laboratory Results - last 24 hr 07/02/16 07/02/16 07/02/16 05:16 05:16 05:16 WBC 7.1 RBC 5.03 Hgb 14.9 Hct 44.2 MCV 87.9 MCH 29.6 MCHC 33.7 RDW 12.3 Plt Count 337 MPV 8.3 L Immature Gran % 0.7 Seg Neutrophils % 75.6 Lymphocytes % 8.0 Monocytes % 14.8 Eosinophils % 0.3 Basophils % 0.6 Neutrophils # 5.4 Lymphocytes # 0.6 Monocytes # 1.1 Eosinophils # 0.0 Basophils # 0.0 PT 11.9 INR 1.1 APTT 25.9 L Sodium 137 Potassium 3.8 Chloride 102 Carbon Dioxide 24 BUN 9 Creatinine 0.77 Est GFR ( Amer) > 60 Est GFR (Non-Af Amer) > 60 BUN/Creatinine Ratio 12 Glucose 147 H Calculated Osmolality 285 Calcium 9.2 Total Bilirubin 0.7 AST 24 ALT 37 Alkaline Phosphatase 161 H Serum Total Protein 6.8 Albumin 3.2 L Globulin 3.6 H Albumin/Globulin Ratio 0.9 L - ABG Interpretation ABG results: PT/INR, D-dimer PT 11.9 Seconds (9.4-12.1) 07/02/16 05:16 Consult Discharge Plan - Plan Referrals: Saundra Stahl MD [Primary Care Provider] -
[2016-07-02] MEDS ORDERED: *HR* FentaNYL PATCH 75 MCG PATCH TD SCH (11:45)
[2016-07-02] MEDS: *HR* Promethazine 25 MG/ML VIAL IVP PRN ×3 (12:21→21:50)
[2016-07-02] MEDS ORDERED: Lidocaine -MPF 1% 5 ML AMPUL INFILT ONE (13:14)
--- NOTE | 2016-07-02 14:24 | Internal Med Progress Note ---
Date of Encounter: 07/02/16 Time of Encounter: 14:21 - Assessment and plan (1) Obstipation Current Visit: Yes Status: Acute Assessment and plan: surgery on board. he is sipping the miralax prepn and has gotten 2 enemas he has had small bowel movement and was about to have another one he wants to see if he will move his bowels, does not want the barium follow through at this time. CT does not show any obstruction at this time/ (2) Pancreatic cancer Current Visit: No Status: Acute Assessment and plan: recently diagnosed, follows with oncology at [facility] as OP. 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 palliative on board. Qualifiers: Pancreatic malignancy location: tail of pancreas Qualified Code(s): C25.2 - Malignant neoplasm of tail of pancreas (3) Cancer associated pain Current Visit: Yes Status: Acute Assessment and plan: palliative on baord, have increased th dose of fentanyl patch and is also currently on ASSISTANT FOOD SERVICE MANAGER pump. consulted interventional pain mx for further assesment . will follow palliative and pain management recommendtaion (4) Goals of care, counseling/discussion Current Visit: Yes Status: Acute Assessment and plan: full code for now. recently diagnosed pancreatic cancer. - Time Spent With Patient 25 - 35 minutes - Subjective Interval history: seen at the bedside, he reports that he had a small bowel movement this morning. he denies n/v, started on clinic charge nurse pump, pain rather tolerable now but still continuous. palliative on board, stage 4 pancreatic cancer with mets. - Constitutional Vitals: Temp Pulse Resp BP Pulse Ox 98.4 F 78 15 158/109 96 07/02/16 05:29 07/02/16 05:29 07/02/16 05:29 07/02/16 05:29 07/02/16 05:29 General appearance: Present: cooperative, mild distress, A&O X 3, pleasant, answers questions appropriately Exam: neck- supple chest- b/l clear, no added sounds CVS-s1 and s2, no mr//g abd- soft, diffusely tender, bs are present, mildly distended. ext- no edema Internal Medicine: Result - Labs CBC & Chem 7: 07/02/16 05:16 07/02/16 05:16 Labs: Short CBC 07/02/16 Range/Units 05:16 WBC 7.1 (4.3-11.1) K/mcL Hgb 14.9 (12.9-16.9) g/dL Hct 44.2 (37.5-50.1) % Plt Count 337 (140-400) K/mcL Neutrophils # 5.4 (1.6-8.9) K/mcL BMP 07/02/16 05:16 Sodium 137 Potassium 3.8 Chloride 102 Carbon Dioxide 24 BUN 9 Creatinine 0.77 Glucose 147 H Calcium 9.2 Liver Function 07/02/16 Range/Units 05:16 Total Bilirubin 0.7 (0.2-1.2) mg/dL AST 24 (5-34) Units/L ALT 37 (0-55) Units/L Alkaline Phosphatase 161 H (38-126) Units/L Albumin 3.2 L (3.5-5.0) g/dL - ABG Interpretation ABG results: PT/INR, D-dimer PT 11.9 Seconds (9.4-12.1) 07/02/16 05:16 Consult Discharge Plan - Plan Referrals: Saundra Stahl MD [Primary Care Provider] -
[2016-07-02] MEDS: Ondansetron 4 MG/2 ML VIAL IVP PRN ×4 (14:40→23:48)
--- NOTE | 2016-07-02 18:57 | Pain Management History & Phys ---
Date of Encounter: 07/02/16 Time of Encounter: 17:15 Assessment and Plan (1) Cancer associated pain Current Visit: Yes Status: Acute The assessment and plan as outlined above was discussed with the patient and/or family members who expressed understanding and agreement. All questions were answered. Discussion with patient and . At this time, I recommend the followin. Continue to work through constipation. Await BM via current care plan. 2. Patient and I discussed possible option with home with PICC line, IV meds if possible. Would maximize the transdermal by increasing to 100 - 125mcg/hr on fentanyl patch. Would go up on the [employer] to 0.5-0.6mg q 10 minutes. 3. Once outpatient, patient and I will move forward with splanchnic nerve block +/- ablation. 4. Possible discussion with patient for intrathecal drug delivery system which could be the most effective route for this patient. Will follow along accordingly. (2) Abdominal pain Current Visit: Yes Status: Acute The assessment and plan as outlined above was discussed with the patient and/or family members who expressed understanding and agreement. All questions were answered. Qualifiers: Abdominal location: generalized Qualified Code(s): R10.84 - Generalized abdominal pain (3) Constipation due to pain medication Current Visit: Yes Status: Acute The assessment and plan as outlined above was discussed with the patient and/or family members who expressed understanding and agreement. All questions were answered. (4) Intractable pain Current Visit: Yes Status: Acute The assessment and plan as outlined above was discussed with the patient and/or family members who expressed understanding and agreement. All questions were answered. (5) Pancreatic cancer Current Visit: No Status: Acute The assessment and plan as outlined above was discussed with the patient and/or family members who expressed understanding and agreement. All questions were answered. 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 The patient has a one week hisory of poor pain control, ascites, intractable nausea and vomiting. Consult placed for interventional opinion for blocks or otherwise. Past Med Surg Social Fam HX - Past Medical History Medical history: cancer (metastatic pancreatic cancer) Psychiatric history: ADHD - Past Surgical History Surgical History: orthopedic, other (3 knee surgeries and right thumb surgery, dental implants), other (Diverticular abscess status post sigmoid resection in 2005) - Social History Smoking Status: Never smoker Smokeless Tobacco Status: No Alcohol use: rarely Drug use: none - Family History Mother Living Status: Hx Family Cardiac Disorders: Yes (HTN) Hx Family Cancer: Yes (Colon) Hx Family Endocrine Disorder: Yes (Diabetes) Father Living Status: Hx Family Cardiac Disorders: Yes (CAD, AFIB) Hx Family Endocrine Disorder: Yes (cromegaly) Medications and Allergies Atomoxetine HCl [Strattera] 100 mg PO DAILY 04/25/16 [History] Ibuprofen [Motrin] 800 mg PO BID 04/25/16 [History] Lansoprazole [Prevacid] 30 mg PO DAILY 04/25/16 [History] Loratadine/Pseudoephedrine [[facility] Loratadine-D 24Hr Tablet] 1 tab PO DAILY [History] Docusate [Colace] 100 mg PO PRN PRN 06/01/16 [History] Ondansetron HCl [Zofran] 8 mg PO BID PRN #60 tablet 06/19/16 [Rx] Oxycodone HCl 2 tab PO Q6H PRN #240 tab 06/19/16 [Rx] Promethazine [Phenergan] 25 mg PO Q4H PRN #180 tablet 06/19/16 [Rx] FentaNYL PATCH [Duragesic] 50 mcg TD Q72H #10 patch.td72 06/25/16 [Rx] Lubiprostone [Amitiza] 24 mcg PO BID #60 capsule 06/25/16 [Rx] OxyCODONE ER (12 HR) [OxyCONTIN] 40 mg PO BID #60 tab.er.12h 06/25/16 [Rx] PredniSONE 10 mg PO DAILY #30 tablet 06/25/16 [Rx] Allergies hydrocodone Allergy (Verified 07/01/16 01:08) Itching Iodinated Contrast Media - Oral and Allergy (Verified 07/01/16 01:08) Rash Amoxicillin [From Augmentin] Adverse Reaction (Verified 07/01/16 01:08) Gastrointestinal Upset clavulanic acid [From Augmentin] Adverse Reaction (Verified 07/01/16 01:08) Gastrointestinal Upset codeine Adverse Reaction (Verified 07/01/16 01:08) Gastrointestinal Upset morphine Adverse Reaction (Verified 07/01/16 01:08) Nausea Review of Systems - Constitutional Constitutional ROS IM: as per HPI - EENT Nose, mouth and throat: neck pain - Cardiovascular Cardiovascular ROS: as per HPI - Respiratory Respiratory: pain with cough - Gastrointestinal Gastrointestinal: abdominal pain, constipation, heartburn - Genitourinary Genitourinary ROS: flank pain - Musculoskeletal Musculoskeletal ROS: as per HPI - Integumentary Integumentary: swelling - Neurological Neurological ROS: no abnormal gait, no behavioral changes, no focal weakness, no radicular pain - Psychiatric Psychiatric general: no anxiety, no confusion, no depression - Hematologic/Lymphatic Hematologic/Lymphatic pediatric: no easy bleeding, no easy bruising Physical Exam Initial Vital Signs Temp Pulse Resp BP Pulse Ox 97.6 F 108 18 154/122 99 07/01/16 01:09 07/01/16 01:09 07/01/16 01:09 07/01/16 01:09 07/01/16 01:09 - General physical appearance General physical appearance: awake & oriented, no distress, moderate pain, severe pain - Eyes Eye exam: normal ocular movement - ENT dry mucosa, atraumatic, normocephalic - Respiratory clear to auscultation - Cardiovascular Cardiovascular exam: Present: RRR, no murmurs/rubs/gallops - Abdomen Abdomen: tender, surgical scars, guarding, distended, epigastric tenderness - Integumentary Integumentary general surgery: no rash - Neurologic CN 2-12 grossly intact - Musculoskeletal Musculoskeletal: normal gait, normal posture - Psychiatric Psychiatric: oriented to time, oriented to person, oriented to place Results - Labs 07/02/16 05:16 07/02/16 05:16 Abnormal lab results MPV 8.3 fL (9.4-12.4) L 07/02/16 05:16 APTT 25.9 Seconds (26.0-36.0) L 07/02/16 05:16 Glucose 147 mg/dL (70-99) H 07/02/16 05:16 Alkaline Phosphatase 161 Units/L (38-126) H 07/02/16 05:16 Albumin 3.2 g/dL (3.5-5.0) L 07/02/16 05:16 Globulin 3.6 g/dL (2.4-3.5) H 07/02/16 05:16 Albumin/Globulin Ratio 0.9 (1.1-2.2) L 07/02/16 05:16 Lipase 7 Units/L (8-78) L 07/01/16 01:31 Ur Squamous Epith Cells Moderate per lpf (None-Few) H 07/01/16 04:00 Diabetes panel 07/02/16 Range/Units 05:16 Sodium 137 (136-145) mEq/L Potassium 3.8 (3.5-4.5) mEq/L Chloride 102 (98-109) mEq/L Carbon Dioxide 24 (19-29) mEq/L BUN 9 (8-26) mg/dL Creatinine 0.77 (0.72-1.25) mg/dL Glucose 147 H (70-99) mg/dL Calcium 9.2 (8.6-10.8) mg/dL AST 24 (5-34) Units/L ALT 37 (0-55) Units/L Alkaline Phosphatase 161 H (38-126) Units/L Albumin 3.2 L (3.5-5.0) g/dL Calcium panel 07/02/16 Range/Units 05:16 Calcium 9.2 (8.6-10.8) mg/dL Albumin 3.2 L (3.5-5.0) g/dL Pituitary panel 07/02/16 Range/Units 05:16 Sodium 137 (136-145) mEq/L Potassium 3.8 (3.5-4.5) mEq/L Chloride 102 (98-109) mEq/L Carbon Dioxide 24 (19-29) mEq/L BUN 9 (8-26) mg/dL Creatinine 0.77 (0.72-1.25) mg/dL Glucose 147 H (70-99) mg/dL Calcium 9.2 (8.6-10.8) mg/dL Adrenal panel 07/02/16 Range/Units 05:16 Sodium 137 (136-145) mEq/L Potassium 3.8 (3.5-4.5) mEq/L Chloride 102 (98-109) mEq/L Carbon Dioxide 24 (19-29) mEq/L BUN 9 (8-26) mg/dL Creatinine 0.77 (0.72-1.25) mg/dL Glucose 147 H (70-99) mg/dL Calcium 9.2 (8.6-10.8) mg/dL Total Bilirubin 0.7 (0.2-1.2) mg/dL AST 24 (5-34) Units/L ALT 37 (0-55) Units/L Alkaline Phosphatase 161 H (38-126) Units/L Albumin 3.2 L (3.5-5.0) g/dL All other labs normal.
[2016-07-03] MEDS: *HR* Promethazine 25 MG/ML VIAL IVP PRN ×8 (01:00→23:28)
[2016-07-03] MEDS: Ondansetron 4 MG/2 ML VIAL IVP PRN ×7 (03:04→21:32)
[2016-07-03 03:19] LABS: Basophils % 0.6 %; Eosinophils # 0.1 K/mcL (0.0-0.6); Eosinophils % 1.6 %; Hemoglobin 13.4 g/dL (12.9-16.9); Immature Granulocytes % 0.8 % (0-4); Lymphocytes # 0.8 K/mcL (0.6-4.6); Lymphocytes % 12.7 %; Mean Corpuscular HGB Conc 33.5 g/dL (31.6-35.5); Mean Corpuscular Hemoglobin 29.7 pg (28.0-33.3); Mean Corpuscular Volume 88.7 fL (83.0-100.0); Mean Platelet Volume 8.3 fL (9.4-12.4); Monocytes % 16.2 %; Neutrophils # 4.3 K/mcL (1.6-8.9); Platelet Count 237 K/mcL (140-400); Red Blood Count 4.51 M/mcL (4.19-5.50); Red Cell Distribution Width 12.2 % (11.5-14.5); Segmented Neutrophils % 68.1 %
[2016-07-03 03:34] LABS: Alanine Aminotransferase 31 Units/L (0-55); Albumin 2.9 g/dL (3.5-5.0); Alkaline Phosphatase 136 Units/L (38-126); Aspartate Amino Transferase 21 Units/L (5-34); BUN/Creatinine Ratio 10 (6-26); Bilirubin,Total 0.6 mg/dL (0.2-1.2); Blood Urea Nitrogen 8 mg/dL (8-26); Calcium 8.8 mg/dL (8.6-10.8); Carbon Dioxide 28 mEq/L (19-29); Chloride 98 mEq/L (98-109); Glucose 126 mg/dL (70-99); Osmolality,Calculated 278 (280-300); Potassium 3.6 mEq/L (3.5-4.5); Sodium 134 mEq/L (136-145); Total Protein 5.9 g/dL (6.0-8.3); eGFR For African Americans > 60 (> 60); eGFR For Non-African Americans > 60 (> 60)
[2016-07-03] MEDS: *HR* Heparin 5,000 UNIT/ML VIAL SQ SCH ×2 (06:02→18:33)
[2016-07-03] MEDS: Pantoprazole 40 MG VIAL IVP SCH ×2 (07:19→20:24)
[2016-07-03] MEDS: MethylPREDNISolone 40 MG/ML VIAL IVP SCH (07:19)
[2016-07-03] MEDS: Nystatin SUSP 5 ML UD.LIQ PO SCH ×4 (07:19→20:24)
[2016-07-03] MEDS: 0.9 % Sodium Chloride w KCl 20 MEQ/1,000 ML MLS IVC SCH ×2 (07:21→15:22)
--- NOTE | 2016-07-03 08:43 | General Surgery Progress Note ---
<Jon Dennison - Last Filed: 07/03/16 08:49> Date of Encounter: 07/03/16 Time of Encounter: 08:20 - Assessment and Plan (1) Obstipation Current Visit: Yes Status: Acute Continue go lytely bowel prep with sips as tolerated. Proceed with gastrograffin SBFT today. Continue with conservative diet of sips of clears. (2) Intractable pain Current Visit: Yes Status: Acute The patient is now on a [employer] pump for control of his pain. Unable to rule out obstruction at this time. Will follow with SBFT results. Discussion of being sent home with PICC line for IV pain meds and splanchnic nerve block as an outpatient via pain specialist Dr. Dunn. (3) Nausea & vomiting Current Visit: Yes Status: Acute Continue management per medicine team. Slight improvement today. Qualifiers: Vomiting type: unspecified Vomiting Intractability: intractable Qualified Code(s): R11.2 - Nausea with vomiting, unspecified (4) Pancreatic cancer Current Visit: No Status: Acute Management per medicine team. Patient following with oncology as outpatient. Qualifiers: Pancreatic malignancy location: tail of pancreas Qualified Code(s): C25.2 - Malignant neoplasm of tail of pancreas (5) DVT prophylaxis Current Visit: Yes Status: Acute Heparin SQ Subjective Patient reports: still having pain, tolerating liquids well, voiding w/o difficulty, flatus, bowel movement, nausea, afebrile Narrative: The patient reports that he is continuing to have some progress with bowel movements from his enemas and sipping on miralax bowel prep. He reports that he believes he will be able to tolerated the small bowel follow through that was discussed as an option for today. Objective Vital Signs - Last 8 Hours Temp Pulse Resp BP Pulse Ox 07/03/16 07:29 97.9 F 86 14 167/113 100 07/03/16 05:04 97.7 F 103 14 171/115 98 Intake and Output 07/02/16 07/03/16 07/03/16 23:59 07:59 15:59 Intake Total 1240 / 1240 1200 / 1200 Output Total 0 / 0 Balance 1240 / 1240 1200 / 1200 Intake: IV Fluids 1000 / 1000 1000 / 1000 KCl 20 mEq in 0.9% Sodium 1000 / 1000 1000 / 1000 Chloride 20 meq In 1,000 ml @ 125 mls/hr IVC .Q8H [facility] Rx#:[id number] Oral 240 / 240 200 / 200 Output: Urine 0 / 0 Other: Stool Size Small Small Stool Consistency soft soft Stool Color Brown Brown # Voids 3 1 # Bowel Movements 1 Weight 78.018 kg Patient Weight 07/03/16 23:59 Weight 78.018 kg - General physical appearance well developed, well nourished, no distress - Eyes normal ocular movement - ENT normal mucosa - Neck Neck exam: trachea midline - Respiratory normal respiratory effort, clear to auscultation - Cardiovascular Cardiovascular exam: Present: RRR - Abdomen Abdomen: Present: bowel sounds present, soft, distended, tender (diffuse) - Integumentary no rash - Neurologic CN 2-12 grossly intact - Musculoskeletal normal posture - Psychiatric oriented to time, oriented to person, oriented to place, speech is normal, memory intact - Labs 07/03/16 03:12 07/03/16 03:12 Diabetes panel 07/03/16 Range/Units 03:12 Sodium 134 L (136-145) mEq/L Potassium 3.6 (3.5-4.5) mEq/L Chloride 98 (98-109) mEq/L Carbon Dioxide 28 (19-29) mEq/L BUN 8 (8-26) mg/dL Creatinine 0.82 (0.72-1.25) mg/dL Glucose 126 H (70-99) mg/dL Calcium 8.8 (8.6-10.8) mg/dL AST 21 (5-34) Units/L ALT 31 (0-55) Units/L Alkaline Phosphatase 136 H (38-126) Units/L Albumin 2.9 L (3.5-5.0) g/dL Calcium panel 07/03/16 Range/Units 03:12 Calcium 8.8 (8.6-10.8) mg/dL Albumin 2.9 L (3.5-5.0) g/dL Pituitary panel 07/03/16 Range/Units 03:12 Sodium 134 L (136-145) mEq/L Potassium 3.6 (3.5-4.5) mEq/L Chloride 98 (98-109) mEq/L Carbon Dioxide 28 (19-29) mEq/L BUN 8 (8-26) mg/dL Creatinine 0.82 (0.72-1.25) mg/dL Glucose 126 H (70-99) mg/dL Calcium 8.8 (8.6-10.8) mg/dL Adrenal panel 07/03/16 Range/Units 03:12 Sodium 134 L (136-145) mEq/L Potassium 3.6 (3.5-4.5) mEq/L Chloride 98 (98-109) mEq/L Carbon Dioxide 28 (19-29) mEq/L BUN 8 (8-26) mg/dL Creatinine 0.82 (0.72-1.25) mg/dL Glucose 126 H (70-99) mg/dL Calcium 8.8 (8.6-10.8) mg/dL Total Bilirubin 0.6 (0.2-1.2) mg/dL AST 21 (5-34) Units/L ALT 31 (0-55) Units/L Alkaline Phosphatase 136 H (38-126) Units/L Albumin 2.9 L (3.5-5.0) g/dL Consult Discharge Plan - Plan Referrals: Saundra Stahl MD [Primary Care Provider] - - Attending Attestation I examined this patient and my medical decision-making was reviewed with the NEW CLIENT BANKING SERVICES CLERK/PA/Advanced Practice Nurse/Resident Physician. I agree with the documented findings, disposition and treatment plan as described except to the extent set forth below. <Cyn Farrell - Last Filed: 07/03/16 14:33> Date of Encounter: 07/03/16 Time of Encounter: 14:00 - Assessment and Plan (1) Obstipation Current Visit: Yes Status: Acute (2) Cancer associated pain Current Visit: Yes Status: Acute hospice helping to manage pain (3) Intractable pain Current Visit: Yes Status: Acute patiets distention may be from ascites want to ensure no component of small bowel obstruction at this time given his significant nausea/emesis and distention with abdominal pain (4) Nausea & vomiting Current Visit: Yes Status: Acute Qualifiers: Vomiting type: unspecified Vomiting Intractability: intractable Qualified Code(s): R11.2 - Nausea with vomiting, unspecified (5) Therapeutic opioid-induced constipation (OIC) Current Visit: Yes Status: Acute having bowel movements want to ensure no obstructive component to his abdominal distention will rule out SBO with SBFT and then start on bowel regimen Subjective Narrative: feeling better, no significant nausea currently, still passing some stool still distended but abdominal pain is somewhat improved, still on physician locums urgent care Objective Vital Signs - Last 8 Hours Temp Pulse Resp BP Pulse Ox 07/03/16 11:48 97.3 F L 90 18 154/97 95 Intake and Output 07/02/16 07/03/16 07/03/16 23:59 07:59 15:59 Intake Total 514 / 514 Balance 514 / 514 Intake: IV Fluids 514 / 514 KCl 20 mEq in 0.9% Sodium 514 / 514 Chloride 20 meq In 1,000 ml @ 125 mls/hr IVC .Q8H [facility] Rx#:[id number] Oral 0 / 0 Other: Meal NPO for lunch Stool Size Small Stool Consistency soft Stool Color Brown # Voids 1 # Bowel Movements 1 - General physical appearance well developed, well nourished, no distress - Eyes PERRL, normal ocular movement - ENT normal mucosa, normocephalic - Neck Neck exam: trachea midline - Respiratory normal expansion, normal respiratory effort - Abdomen Abdomen: Present: soft, distended, tender (very mildly tender) - Integumentary no rash, no growths - Neurologic CN 2-12 grossly intact - Musculoskeletal normal posture - Psychiatric oriented to time, oriented to person, oriented to place, speech is normal, memory intact - Labs 07/03/16 03:12 07/03/16 03:12 Vital Signs Temp Pulse Resp BP Pulse Ox 07/03/16 11:48 97.3 F L 90 18 154/97 95 07/03/16 07:29 97.9 F 86 14 167/113 100 07/03/16 05:04 97.7 F 103 14 171/115 98 07/02/16 23:50 97.9 F 83 14 147/93 98 07/02/16 19:19 97.4 F L 85 14 161/106 100 07/02/16 14:46 98.5 F 86 14 164/115 99 Intake and Output 07/02/16 07/03/16 07/03/16 23:59 07:59 15:59 Intake Total 1240 / 1240 1200 / 1200 514 / 514 Output Total 0 / 0 Balance 1240 / 1240 1200 / 1200 514 / 514 Intake: IV Fluids 1000 / 1000 1000 / 1000 514 / 514 KCl 20 mEq in 0.9% Sodium 1000 / 1000 1000 / 1000 514 / 514 Chloride 20 meq In 1,000 ml @ 125 mls/hr IVC .Q8H [facility] Rx#:[id number] Oral 240 / 240 200 / 200 0 / 0 Output: Urine 0 / 0 Other: Meal NPO for lunch Stool Size Small Small Small Stool Consistency soft soft soft Stool Color Brown Brown Brown # Voids 3 1 1 # Bowel Movements 1 1 Weight 78.018 kg Patient Weight 07/03/16 23:59 Weight 78.018 kg
[2016-07-03] MEDS: *HR* HYDROmorphone 20 MG/20 ML PCA IVC PRN (10:25)
[2016-07-03] MEDS: amLODIPine 5 MG TABLET PO SCH (10:57)
[2016-07-03] MEDS ORDERED: MethylPREDNISolone 40 MG/ML VIAL IVP ONE (11:30)
--- NOTE | 2016-07-03 15:16 | Palliative Progress Note ---
Date of Encounter: 07/03/16 Time of Encounter: 10:15 - Assessment and plan (1) Abdominal pain Current Visit: Yes Status: Acute Assessment and plan: The patient is currently on a fentanyl patch as well as a Dilaudid pump. There is some synergy between fentanyl and Dilaudid and will continue both I will increase the fentanyl patch to 75 today. Patient has been seen by interventional pain and plans are made for after discharge for possible block. Will increase fentanyl to 100 today. Continue to follow the use of his breakthrough Dilaudid. At this time the patient is extremely reluctant to consider any form of adjunct therapy. Specifically he does not wish to try at this time duloxetine, gabapentin or pregabalin. Qualifiers: Abdominal location: generalized Qualified Code(s): R10.84 - Generalized abdominal pain (2) Goals of care, counseling/discussion Current Visit: Yes Status: Acute Assessment and plan: Currently full code. Not discussed CODE STATUS with him at this point in time as we are still developing his goals of care. He is okay with passing, however he wishes to stay for as long as he can and be as comfortable as he can. Will discuss CODE STATUS further after we get his bowels cleaned out, and get his pain under better control. (3) Cancer associated pain Current Visit: Yes Status: Acute Assessment and plan: Currently I am collaborating with pharmacy and patient has now been seen by interventional pain. Tingling dialogue at the current level as the patient seems to be doing well with this, but I will increase the fentanyl patch to 100 g today. And consider titrating up further per recommendations from interventional pain. (4) Nausea & vomiting Current Visit: Yes Status: Acute Assessment and plan: he is currently requesting making his Phenergan 25 mg and Zofran 8 mg at 2 hour intervals so he can have one of the other every 4 hours as needed. I have made this adjustment we will continue to watch. Seems to be doing well with this, however the patient is requesting it on a very regular basis. Discussed further with pharmacy about the possibility of scheduling it. Qualifiers: Vomiting type: unspecified Vomiting Intractability: intractable Qualified Code(s): R11.2 - Nausea with vomiting, unspecified (5) Obstipation Current Visit: Yes Status: Acute Assessment and plan: Surgery is following and the patient does seem to be responding to enemas. No new recommendations at this time. Small bowel follow-through today, we will know more once the results are back on this. Surgery continues to follow. (6) Pancreatic cancer Current Visit: No Status: Acute Assessment and plan: Per the patient already diagnosed as metastatic. Considering chemotherapy although at this time he seems to be leaning away from it. Qualifiers: Pancreatic malignancy location: tail of pancreas Qualified Code(s): C25.2 - Malignant neoplasm of tail of pancreas - Time Spent With Patient Total time spent is greater than 50% in coordination of care (as documented) at patient's floor/unit and/or counseling patient: - Subjective Interval history: The patient reports that his bowels are moving better now. He is having bowel movements without enemas at this time. She is scheduled for a small bowel follow-through late this morning early this afternoon. As his bowels are moving better some of the crampy abdominal pain is easing off in his overall pain burden is better. - Constitutional Vitals: Abnormal lab results MPV 8.3 fL (9.4-12.4) L 07/03/16 03:12 APTT 25.9 Seconds (26.0-36.0) L 07/02/16 05:16 Sodium 134 mEq/L (136-145) L 07/03/16 03:12 Glucose 126 mg/dL (70-99) H 07/03/16 03:12 Calculated Osmolality 278 (280-300) L 07/03/16 03:12 Alkaline Phosphatase 136 Units/L (38-126) H 07/03/16 03:12 Serum Total Protein 5.9 g/dL (6.0-8.3) L 07/03/16 03:12 Albumin 2.9 g/dL (3.5-5.0) L 07/03/16 03:12 Albumin/Globulin Ratio 1.0 (1.1-2.2) L 07/03/16 03:12 Lipase 7 Units/L (8-78) L 07/01/16 01:31 Ur Squamous Epith Cells Moderate per lpf (None-Few) H 07/01/16 04:00 General appearance: Present: no acute distress - Eye Eye exam: Present: normal appearance - Neck Neck exam: Present: normal inspection - Respiratory Respiratory exam: Present: CTAB - Cardiovascular Cardiovascular exam: Present: RRR - GI/Abdominal GI/Abdominal exam: Present: distended (Much less than yesterday), firm (But less than yesterday), normal bowel sounds, tenderness (Decreased from yesterday. ). Absent: soft - Extremities Exam Extremities exam: Present: normal inspection. Absent: pedal edema, tenderness - Neurological Exam Neurological exam: Present: alert, oriented X3 - Psychiatric Psychiatric exam: Present: normal affect, normal mood. Absent: agitated ( Dealing with problems from insurance company might not agitated in her clinical state.), anxious - Skin Skin exam: Present: dry, warm Palliative Quality Palliative Quality: Screen for Code Status: Yes (pt feeling to poorly at this time), Screen for Goals of Care: Yes, Screen for Pain: Yes, If Pain Regimen Started, Initiate Bowel Regimen: Yes, Screen for Nausea/Vomitting: Yes - Labs CBC & Chem 7: 07/03/16 03:12 07/03/16 03:12 - ABG Interpretation ABG results: PT/INR, D-dimer PT 11.9 Seconds (9.4-12.1) 07/02/16 05:16 Consult Discharge Plan - Plan Referrals: Saundra Stahl MD [Primary Care Provider] -
[2016-07-03] MEDS ORDERED: *HR* FentaNYL PATCH 50 MCG PATCH TD SCH ×2 (15:30→17:00)
--- NOTE | 2016-07-03 15:37 | Pain Management Progress Note ---
Date of Encounter: 07/03/16 Time of Encounter: 15:34 - Assessment and Plan (1) Cancer associated pain Current Visit: Yes Status: Acute Continue with SHEET METAL FORMER titration. Increased duragesic. Await more productve stool. Plan for splanchnic nerve block as outpatient. (2) Abdominal pain Current Visit: Yes Status: Acute Qualifiers: Abdominal location: generalized Qualified Code(s): R10.84 - Generalized abdominal pain (3) Constipation due to pain medication Current Visit: Yes Status: Acute (4) Intractable pain Current Visit: Yes Status: Acute (5) Pancreatic cancer Current Visit: No Status: Acute Qualifiers: Pancreatic malignancy location: tail of pancreas Qualified Code(s): C25.2 - Malignant neoplasm of tail of pancreas Subjective Patient reports: no new complaints, still having pain, bowel movement, nausea, shortness of breath Narrative: Changes to SHEET METAL FORMER noted this afternoon per primary team. Increased SHEET METAL FORMER and fentanyl patch. No new problems. Awaiting results of SBFT Objective Vital Signs - Last 8 Hours Temp Pulse Resp BP Pulse Ox 07/03/16 11:48 97.3 F L 90 18 154/97 95 Intake and Output 07/02/16 07/03/16 07/03/16 23:59 07:59 15:59 Intake Total 1000 / 1000 Balance 1000 / 1000 Intake: IV Fluids 1000 / 1000 KCl 20 mEq in 0.9% Sodium 1000 / 1000 Chloride 20 meq In 1,000 ml @ 125 mls/hr IVC .Q8H [facility] Rx#:[id number] Oral 0 / 0 Other: Meal NPO for lunch Stool Size Small Stool Consistency soft Stool Color Brown # Voids 1 # Bowel Movements 1 - General physical appearance severe pain - Eyes normal ocular movement - Respiratory clear to auscultation - Cardiovascular Cardiovascular exam: Present: RRR - Abdomen Abdomen: Present: distended Abdominal Tenderness: diffusely - Integumentary no rash - Neurologic other (Oriented x3) - Musculoskeletal other - Psychiatric oriented to time, oriented to person, oriented to place - Labs 07/03/16 03:12 07/03/16 03:12 Consult Discharge Plan - Plan Referrals: Saundra Stahl MD [Primary Care Provider] -
--- NOTE | 2016-07-03 17:12 | Internal Med Progress Note ---
Date of Encounter: 07/03/16 Time of Encounter: 17:10 - Assessment and plan (1) Obstipation Current Visit: Yes Status: Acute Assessment and plan: surgery on board. he is sipping the miralax prepn , s/p enemas with small bowel movements clinically better. plan for SBFT today. CT does not show any obstruction at this time/ (2) Pancreatic cancer Current Visit: No Status: Acute Assessment and plan: recently diagnosed, follows with oncology at [facility] as OP. 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 palliative on board. Qualifiers: Pancreatic malignancy location: tail of pancreas Qualified Code(s): C25.2 - Malignant neoplasm of tail of pancreas (3) Cancer associated pain Current Visit: Yes Status: Acute Assessment and plan: palliative on baord, have increased the dose of fentanyl patch and is also currently on TRAINING PROFESSIONAL pump. consulted interventional pain mx for further assesment , recommend splanchnic nerve block as OP. will follow palliative and pain management recommendtaion (4) Goals of care, counseling/discussion Current Visit: Yes Status: Acute Assessment and plan: full code for now. recently diagnosed pancreatic cancer. - Time Spent With Patient 25 - 35 minutes - Subjective Interval history: seen at the bedside, he had a bowel movement, he denies n/v, started on pelota maker pump, pain better controlled with it. palliative on board, stage 4 pancreatic cancer with mets. appreciate palliative and surgical input. - Constitutional Vitals: Temp Pulse Resp BP Pulse Ox 97.3 F L 94 18 153/105 94 L 07/03/16 15:47 07/03/16 15:47 07/03/16 15:47 07/03/16 15:47 07/03/16 15:47 General appearance: Present: cooperative, mild distress, A&O X 3, pleasant, answers questions appropriately Exam: neck- supple chest- b/l clear, no added sounds CVS-s1 and s2, no mr//g abd- soft, mild tenderness, bs are present, mildly distended. ext- no edema Internal Medicine: Result - Labs CBC & Chem 7: 07/03/16 03:12 07/03/16 03:12 - ABG Interpretation ABG results: PT/INR, D-dimer PT 11.9 Seconds (9.4-12.1) 07/02/16 05:16 Consult Discharge Plan - Plan Referrals: Saundra Stahl MD [Primary Care Provider] -
[2016-07-04] MEDS: Ondansetron 4 MG/2 ML VIAL IVP PRN ×6 (00:14→21:14)
[2016-07-04] MEDS: 0.9 % Sodium Chloride w KCl 20 MEQ/1,000 ML MLS IVC SCH ×4 (00:15→23:56)
[2016-07-04] MEDS: *HR* Promethazine 25 MG/ML VIAL IVP PRN ×5 (01:45→21:58)
[2016-07-04] MEDS: *HR* HYDROmorphone 20 MG/20 ML PCA IVC PRN ×2 (03:08→17:13)
[2016-07-04] MEDS: *HR* Heparin 5,000 UNIT/ML VIAL SQ SCH ×2 (06:22→18:00)
--- NOTE | 2016-07-04 07:15 | General Surgery Progress Note ---
<Jon Dennison - Last Filed: 07/04/16 07:13> Date of Encounter: 07/04/16 Time of Encounter: 06:50 - Assessment and Plan (1) Obstipation Current Visit: Yes Status: Acute Scheduled bowel regimen of Miralax BID and Colace BID. Gastrograffin SBFT demonstrated delayed small bowel transit, which may relate to an ileus. No evidence of obstruction. Will advance diet to fulls as tolerated. (2) Intractable pain Current Visit: Yes Status: Acute The patient is now on a MONONITROTOLUENE OPERATOR pump for control of his pain. SBFT results show no evidence of obstruction. Discussion of being sent home with PICC line for IV pain meds and splanchnic nerve block as an outpatient via pain specialist Dr. Dunn. (3) Nausea & vomiting Current Visit: Yes Status: Acute Continue management per medicine team. Reports continued nausea. Qualifiers: Vomiting type: unspecified Vomiting Intractability: intractable Qualified Code(s): R11.2 - Nausea with vomiting, unspecified (4) Pancreatic cancer Current Visit: No Status: Acute Management per medicine team. Patient following with oncology as outpatient. The patient reports that he spoke with Dr. Do yesterday on the phone and is considering starting chemotherapy. Qualifiers: Pancreatic malignancy location: tail of pancreas Qualified Code(s): C25.2 - Malignant neoplasm of tail of pancreas (5) DVT prophylaxis Current Visit: Yes Status: Acute Heparin SQ Subjective Patient reports: feels better, still having pain, tolerating liquids well, flatus, bowel movement, nausea, afebrile Narrative: The patient reports that he was able to have multiple bowel movements last night. He reports that he feels better after being able to move his bowels without having an enema. He continues to feel bloated and have abdominal pain, but reports it is improved. Objective Vital Signs - Last 8 Hours Temp Pulse Resp BP Pulse Ox 07/04/16 00:05 98.1 F 100 14 138/87 98 Intake and Output 07/03/16 07/03/16 07/04/16 15:59 23:59 07:59 Intake Total 1000 / 1000 1100 / 1100 800 / 800 Output Total 0 / 0 Balance 1000 / 1000 1100 / 1100 800 / 800 Intake: IV Fluids 1000 / 1000 1000 / 1000 KCl 20 mEq in 0.9% Sodium 1000 / 1000 1000 / 1000 Chloride 20 meq In 1,000 ml @ 125 mls/hr IVC .Q8H [facility] Rx#:[id number] Oral 0 / 0 100 / 100 800 / 800 Output: Urine 0 / 0 Other: Meal NPO for lunch refused tray Percent of Meal Consumed 0% Stool Size Small Copious Stool Consistency soft liquid Stool Color Brown Yellow # Voids 1 4 # Bowel Movements 1 - General physical appearance well developed, well nourished, no distress - Eyes normal ocular movement - ENT normal mucosa - Neck Neck exam: trachea midline - Respiratory normal respiratory effort, clear to auscultation - Cardiovascular Cardiovascular exam: Present: RRR - Abdomen Abdomen: Present: bowel sounds present, soft, tympanic, distended, tender ( diffusely) - Neurologic CN 2-12 grossly intact - Musculoskeletal normal gait, normal posture - Psychiatric oriented to time, oriented to person, oriented to place, speech is normal, memory intact - Labs 07/03/16 03:12 07/03/16 03:12 Consult Discharge Plan - Plan Referrals: Saundra Stahl MD [Primary Care Provider] - - Attending Attestation I examined this patient and my medical decision-making was reviewed with the RN OUTPATIENT SURGERY/PA/Advanced Practice Nurse/Resident Physician. I agree with the documented findings, disposition and treatment plan as described except to the extent set forth below. <Cyn Farrell - Last Filed: 07/04/16 19:35> Date of Encounter: 07/04/16 Time of Encounter: 11:10 - Assessment and Plan (1) Obstipation Current Visit: Yes Status: Acute (2) Cancer associated pain Current Visit: Yes Status: Acute (3) Intractable pain Current Visit: Yes Status: Acute (4) Nausea & vomiting Current Visit: Yes Status: Acute SBFT shows delayed transit, due to high dose narcotics and likely ascites too continue prn antimemetics patient declined scopalamine patch Qualifiers: Vomiting type: unspecified Vomiting Intractability: intractable Qualified Code(s): R11.2 - Nausea with vomiting, unspecified (5) Therapeutic opioid-induced constipation (OIC) Current Visit: Yes Status: Acute will start BID colace, BID miralax magnesium citrate prn advance diet to fulls, he felt regular food was too much this am for breakfast Subjective Narrative: still very distented and tympanetic nausea persistent but better controlled this am has significant emesis of gastrograffin after sbft yday several liquid bms last 24hrs Objective Vital Signs - Last 8 Hours Temp Pulse Resp BP Pulse Ox 07/04/16 14:50 97.4 F L 104 14 142/94 97 07/04/16 12:05 97.8 F 104 14 144/103 95 Intake and Output 07/04/16 07/04/16 07/04/16 07:59 15:59 23:59 Intake Total 1800 / 1800 1959 / 1960 0 / 0 Output Total 1000 / 1000 Balance 1800 / 1800 960 / 960 0 / 0 Intake: IV Fluids 1000 / 1000 1000 / 1000 KCl 20 mEq in 0.9% Sodium 1000 / 1000 1000 / 1000 Chloride 20 meq In 1,000 ml @ 125 mls/hr IVC .Q8H [facility] Rx#:[id number] Oral 800 / 800 960 / 960 0 / 0 Output: Urine 1000 / 1000 Other: Meal Lunch Dinner Percent of Meal Consumed 100% 10% Stool Size Moderate Stool Consistency loose Stool Color Brown # Voids 1 - General physical appearance well developed, well nourished, moderate distress, moderate pain - Eyes PERRL, normal ocular movement - ENT normal mucosa, normocephalic - Neck Neck exam: trachea midline - Respiratory normal expansion, clear to auscultation - Cardiovascular Cardiovascular exam: Present: RRR - Abdomen Abdomen: Present: bowel sounds present, soft, tympanic, tender (mildly). Absent : guarding, rebound - Integumentary no rash, no growths - Neurologic CN 2-12 grossly intact - Musculoskeletal normal gait, normal posture - Psychiatric oriented to time, oriented to person, oriented to place, speech is normal, memory intact - Labs 07/03/16 03:12 07/03/16 03:12 Vital Signs Temp Pulse Resp BP Pulse Ox 07/04/16 14:50 97.4 F L 104 14 142/94 97 07/04/16 12:05 97.8 F 104 14 144/103 95 07/04/16 07:23 97.6 F 98 16 134/96 94 L 07/04/16 00:05 98.1 F 100 14 138/87 98 Intake and Output 07/04/16 07/04/16 07/04/16 07:59 15:59 23:59 Intake Total 1800 / 1800 1959 / 1959 0 / 0 Output Total 1000 / 1000 Balance 1800 / 1799 960 / 960 0 / 0 Intake: IV Fluids 1000 / 1000 1000 / 1000 KCl 20 mEq in 0.9% Sodium 1000 / 1000 1000 / 1000 Chloride 20 meq In 1,000 ml @ 125 mls/hr IVC .Q8H [facility] Rx#:[id number] Oral 800 / 800 960 / 960 0 / 0 Output: Urine 1000 / 1000 Other: Meal Lunch Dinner Percent of Meal Consumed 100% 10% Stool Size Moderate Stool Consistency loose Stool Color Brown # Voids 1
[2016-07-04] MEDS: Nystatin SUSP 5 ML UD.LIQ PO SCH ×4 (07:42→21:15)
[2016-07-04] MEDS: amLODIPine 5 MG TABLET PO SCH (07:42)
[2016-07-04] MEDS: Pantoprazole 40 MG VIAL IVP SCH (07:43)
[2016-07-04] MEDS: predniSONE 20 MG TABLET PO SCH (07:43)
--- NOTE | 2016-07-04 11:53 | Electrocardiograph Report ---
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
[2016-07-04] MEDS: Sennosides 8.6 MG TABLET PO SCH ×2 (14:01→21:15)
--- NOTE | 2016-07-04 15:32 | Palliative Progress Note ---
Date of Encounter: 07/04/16 Time of Encounter: 09:20 - Assessment and plan (1) Abdominal pain Current Visit: Yes Status: Acute Assessment and plan: The patient is currently on a fentanyl patch as well as a Dilaudid pump. There is some synergy between fentanyl and Dilaudid and will continue both I will increase the fentanyl patch to 75 today. Patient has been seen by interventional pain and plans are made for after discharge for possible block. Will increase fentanyl to 100 today. Continue to follow the use of his breakthrough Dilaudid. At this time the patient is extremely reluctant to consider any form of adjunct therapy. Specifically he does not wish to try at this time duloxetine, gabapentin or pregabalin. I am told the patient has discussed the case with his oncologist Dr. Do, I am told that Dr. Do has agreed to prescribe the EXTRACT PULLER pump. No other changes made today. Patient continues to be reluctant to consider any form of adjunct therapy. Qualifiers: Abdominal location: generalized Qualified Code(s): R10.84 - Generalized abdominal pain (2) Goals of care, counseling/discussion Current Visit: Yes Status: Acute Assessment and plan: Currently full code. Patient's goal of care is to consider doing full chemotherapy and/or radiation therapy if this is available to him. Interventional pain management. Patient's CODE STATUS is full and this will remain as such for the time being. 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 l. (3) Cancer associated pain Current Visit: Yes Status: Acute Assessment and plan: Currently I am collaborating with pharmacy and patient has now been seen by interventional pain. As already noted the patient does not wish to consider any adjunct to give management at this time. He wishes to continue to use the EXTRACT PULLER pump and the patches. As he is regarding getting relief at this time I will not change anything. He has convinced Dr. Do to provide the EXTRACT PULLER pump as an outpatient. Social work is working to make this happen.. (4) Nausea & vomiting Current Visit: Yes Status: Acute Assessment and plan: he is currently requesting making his Phenergan 25 mg and Zofran 8 mg at 2 hour intervals so he can have one of the other every 4 hours as needed. I have made this adjustment we will continue to watch. Concern at this time about QTc prolongation with the amount of ondansetron the patient is getting in addition to Phenergan. e KG obtained today is at 0.39 QTc so we still have some room to work. Patient does not wish to consider Reglan, although this has been recommended to him by surgery and by myself. Qualifiers: Vomiting type: unspecified Vomiting Intractability: intractable Qualified Code(s): R11.2 - Nausea with vomiting, unspecified (5) Obstipation Current Visit: Yes Status: Acute Assessment and plan: Surgery is following and the patient does seem to be responding to enemas. No new recommendations at this time. Small bowel follow-through, no obstruction. Patient has been advanced to full diet by surgery and senna has been prescribed. Discussed with surgery about the possibility of Reglan they have already recommended to the patient and he is "not a fan" (6) Pancreatic cancer Current Visit: No Status: Acute Assessment and plan: Per the patient already diagnosed as metastatic. He wishes to keep all options open regarding chemotherapy and/or radiation therapy if possible.. Qualifiers: Pancreatic malignancy location: tail of pancreas Qualified Code(s): C25.2 - Malignant neoplasm of tail of pancreas - Time Spent With Patient Total time spent is greater than 50% in coordination of care (as documented) at patient's floor/unit and/or counseling patient: - Subjective Interval history: The patient reports that his bowels are moving better now. He is having bowel movements without enemas at this time. Overall he is feeling somewhat better. Feels he will need to have his EXTRACT PULLER pump to be up to go home with her until such time as he gets the interventional pain done. I discussed with him about his use of antiemetics and the potential QTC prolongation. At this time he does not wish to consider Reglan wants to continue doing the Zofran and the Phenergan. Surgery has advanced his diet to full. - Constitutional Vitals: Abnormal lab results MPV 8.3 fL (9.4-12.4) L 07/03/16 03:12 APTT 25.9 Seconds (26.0-36.0) L 07/02/16 05:16 Sodium 134 mEq/L (136-145) L 07/03/16 03:12 Glucose 126 mg/dL (70-99) H 07/03/16 03:12 Calculated Osmolality 278 (280-300) L 07/03/16 03:12 Alkaline Phosphatase 136 Units/L (38-126) H 07/03/16 03:12 Serum Total Protein 5.9 g/dL (6.0-8.3) L 07/03/16 03:12 Albumin 2.9 g/dL (3.5-5.0) L 07/03/16 03:12 Albumin/Globulin Ratio 1.0 (1.1-2.2) L 07/03/16 03:12 Lipase 7 Units/L (8-78) L 07/01/16 01:31 Ur Squamous Epith Cells Moderate per lpf (None-Few) H 07/01/16 04:00 General appearance: Present: no acute distress - Head Head exam: Present: atraumatic, normal inspection - Eye Eye exam: Present: normal appearance - ENT ENT exam: Present: mucous membranes moist - Respiratory Respiratory exam: Present: CTAB - Cardiovascular Cardiovascular exam: Present: RRR - GI/Abdominal GI/Abdominal exam: Present: distended (Decreased from yesterday), firm ( Decreased from yesterday), hypoactive bowel sounds. Absent: soft, tenderness ( Decreased from yesterday) - Extremities Exam Extremities exam: Present: normal inspection. Absent: pedal edema, tenderness - Neurological Exam Neurological exam: Present: alert, oriented X3 - Psychiatric Psychiatric exam: Present: normal affect, normal mood. Absent: agitated, anxious - Skin Skin exam: Present: dry, warm Palliative Quality Palliative Quality: Screen for Code Status: Yes, Screen for Goals of Care: Yes, Screen for Pain: Yes, If Pain Regimen Started, Initiate Bowel Regimen: Yes, Screen for Nausea/Vomitting: Yes - Labs CBC & Chem 7: 07/03/16 03:12 07/03/16 03:12 - ABG Interpretation ABG results: PT/INR, D-dimer PT 11.9 Seconds (9.4-12.1) 07/02/16 05:16 Consult Discharge Plan - Plan Referrals: Saundra Stahl MD [Primary Care Provider] -
[2016-07-05] MEDS: Ondansetron 4 MG/2 ML VIAL IVP PRN ×2 (03:18→12:01)
[2016-07-05] MEDS: *HR* Promethazine 25 MG/ML VIAL IVP PRN ×2 (04:51→16:07)
[2016-07-05] MEDS: *HR* HYDROmorphone 20 MG/20 ML PCA IVC PRN (05:37)
[2016-07-05] MEDS: *HR* Heparin 5,000 UNIT/ML VIAL SQ SCH (06:51)
[2016-07-05] MEDS: Nystatin SUSP 5 ML UD.LIQ PO SCH ×2 (07:46→11:53)
[2016-07-05] MEDS: Sennosides 8.6 MG TABLET PO SCH (07:46)
--- NOTE | 2016-07-05 08:02 | General Surgery Progress Note ---
<Jon Dennison - Last Filed: 07/05/16 07:56> Date of Encounter: 07/05/16 Time of Encounter: 07:00 - Assessment and Plan (1) Obstipation Status: Acute Scheduled bowel regimen of Miralax BID and Colace BID. Patient is currently refusing stating he wants to have formed stools before he restarts bowel regimen. Will advance diet to fulls as tolerated. Patient is NPO for port placement today. Will resume diet following procedure. (2) Intractable pain Status: Acute The patient is now on a PRISON TEACHER pump for control of his pain. Port placement scheduled for today for IV pain meds and splanchnic nerve block as an outpatient via pain specialist Dr. Dunn. (3) Nausea & vomiting Status: Acute Continue management per medicine team. Reports nausea is improved today and has an appetite. Qualifiers: Vomiting type: unspecified Vomiting Intractability: intractable Qualified Code(s): R11.2 - Nausea with vomiting, unspecified (4) Pancreatic cancer Status: Acute Management per medicine team. Patient following with oncology as outpatient. Qualifiers: Pancreatic malignancy location: tail of pancreas Qualified Code(s): C25.2 - Malignant neoplasm of tail of pancreas (5) DVT prophylaxis Status: Acute Heparin SQ Subjective Patient reports: no new complaints, feels better, still having pain, tolerating liquids well, flatus, bowel movement, diarrhea, afebrile Narrative: The patient states that he was able to rest well last night for 4 hours, but then fell behind with his pain control. He reports that he was only just able to catch up with his medications for pain control shortly before I came to see him. He states he is wanting to go home today and is wanting his port placed so that he will be able to have PRISON TEACHER for pain control at home. He reports having an appetite and continues to have some nausea, but it is less. He states that he has had several loose stools yesterday evening and does not wish to continue with Miralax or Colace at this time until his stools are formed again so that he can start on an appropriate regimen. Objective Vital Signs - Last 8 Hours Temp Pulse Resp BP Pulse Ox 07/05/16 07:13 97.6 F 85 16 143/100 91 L 07/05/16 03:20 97.1 F L 70 16 146/106 96 Intake and Output 07/04/16 07/04/16 07/05/16 15:59 23:59 07:59 Intake Total 1960 / 1960 1000 / 1000 0 / 0 Output Total 1000 / 1000 Balance 960 / 960 1000 / 1000 0 / 0 Intake: IV Fluids 1000 / 1000 1000 / 1000 KCl 20 mEq in 0.9% Sodium 1000 / 1000 1000 / 1000 Chloride 20 meq In 1,000 ml @ 125 mls/hr IVC .Q8H [facility] Rx#:[id number] Oral 960 / 960 0 / 0 0 / 0 Output: Urine 1000 / 1000 Other: Meal Lunch Dinner Percent of Meal Consumed 100% 10% Stool Consistency liquid # Voids 1 1 # Bowel Movements 1 0 Weight 78.018 kg Patient Weight 07/05/16 23:59 Weight 78.018 kg - General physical appearance well developed, well nourished, no distress - Eyes normal ocular movement - ENT normal mucosa, atraumatic, normocephalic - Neck Neck exam: trachea midline - Respiratory normal respiratory effort, clear to auscultation - Cardiovascular Cardiovascular exam: Present: RRR - Abdomen Abdomen: Present: bowel sounds present, soft, distended, tender - Integumentary no rash - Neurologic CN 2-12 grossly intact - Musculoskeletal normal posture - Psychiatric oriented to time, oriented to person, oriented to place, speech is normal, memory intact - Labs 07/03/16 03:12 07/03/16 03:12 Consult Discharge Plan - Plan Referrals: Cristina Do MD [Partnered Physician] - 07/10/16 3:30 pm Saundra Stahl MD [Primary Care Provider] - ( IS TO FOLLOW) Prescriptions: Amlodipine [Norvasc] 10 mg PO DAILY #30 tablet Docusate [Colace] 100 mg PO BID #60 capsule Polyethylene Glycol 3350 [MiraLAX Powder Bulk 17.9 Oz] 1 scoop PO DAILY #510 gm Promethazine [Phenergan] 25 mg PO Q4H PRN #180 tablet PRN Reason: Nausea - Attending Attestation I examined this patient and my medical decision-making was reviewed with the INSPECTOR AND MENDER/PA/Advanced Practice Nurse/Resident Physician. I agree with the documented findings, disposition and treatment plan as described except to the extent set forth below. <SpaCyn vazquez Ric - Last Filed: 07/11/16 14:59> - Assessment and Plan (1) Obstipation Status: Acute (2) Cancer associated pain Status: Acute (3) Intractable pain Status: Acute (4) Nausea & vomiting Status: Acute Qualifiers: Vomiting type: unspecified Vomiting Intractability: intractable Qualified Code(s): R11.2 - Nausea with vomiting, unspecified (5) Therapeutic opioid-induced constipation (OIC) Status: Acute Objective - General physical appearance well developed, well nourished, no distress - Eyes normal ocular movement - ENT normal mucosa, normocephalic - Respiratory normal respiratory effort, clear to auscultation - Cardiovascular Cardiovascular exam: Present: RRR - Abdomen Abdomen: Present: bowel sounds present, soft, distended - Integumentary no rash - Neurologic CN 2-12 grossly intact - Musculoskeletal normal posture - Psychiatric oriented to person, memory intact - Labs 07/03/16 03:12 07/03/16 03:12 - Attending Attestation I examined this patient and my medical decision-making was reviewed with the INSPECTOR AND MENDER/PA/Advanced Practice Nurse/Resident Physician. I agree with the documented findings, disposition and treatment plan as described except to the extent set forth below.
[2016-07-05] MEDS: 0.9 % Sodium Chloride w KCl 20 MEQ/1,000 ML MLS IVC SCH (08:07)
[2016-07-05] MEDS: predniSONE 20 MG TABLET PO SCH (08:09)
[2016-07-05] MEDS: amLODIPine 5 MG TABLET PO SCH (08:09)
--- NOTE | 2016-07-05 09:17 | Pre-Sedation Evaluation ---
Pre-sedation evaluation - Pre-sedation checklist Recent Vitals: Last Vital Signs Temp 97.6 F 07/05/16 07:13 Pulse 85 07/05/16 07:13 Resp 16 07/05/16 07:13 BP 143/100 07/05/16 07:13 Pulse Ox 91 L 07/05/16 07:13 Airway Assessment: Patient can open mouth completely, TMJ function normal, Micrognathia (under-bite, receding chin) absent, Neck with adequate range of motion Dentition: No loose teeth or bridges Possible difficult airway: No ASA Classification *see protocol: CLASS II-Mild systemic disease Plan of Care: Pt appropriate candidate for procedure/moderate/conscious sedation , Risks/benefits of procedure/sedation discussed w/ patient/family
[2016-07-05] MEDS ORDERED: Clindamycin 600 MG/50 ML 600 MG/50 ML IV.SOLN IVPB STA (09:18)
[2016-07-05] MEDS ORDERED: Heparin 1,000 UNITS/500 mL NS 500 ML ONE (10:16)
[2016-07-05] MEDS ORDERED: 0.9 % Sodium Chloride 500 ML ONE (10:24)
[2016-07-05] MEDS: *HR* FentaNYL (PF) 100 MCG/2 ML VIAL IV PRN ×2 (10:49→10:53)
[2016-07-05] MEDS: *HR* Midazolam HCl 2 MG/2 ML VIAL IV PRN ×2 (10:49→10:53)
[2016-07-05] MEDS ORDERED: Ondansetron 4 MG/2 ML VIAL IVP PRN (12:09)
[2016-07-05] MEDS ORDERED: 0.9 % Sodium Chloride 1,000 ML IVC SCH (12:15)
[2016-07-05] MEDS ORDERED: *HR* FentaNYL PATCH 50 MCG PATCH TD SCH (12:30)
--- NOTE | 2016-07-05 12:33 | Palliative Progress Note ---
Date of Encounter: 07/05/16 Time of Encounter: 14:01 - Assessment and plan (1) Abdominal pain Current Visit: Yes Status: Acute Assessment and plan: The patient is currently on a fentanyl patch as well as a Dilaudid pump. There is some synergy between fentanyl and Dilaudid and will continue both I will increase the fentanyl patch to 75 today. Patient has been seen by interventional pain and plans are made for after discharge for possible block. Will increase fentanyl to 100 today. Continue to follow the use of his breakthrough Dilaudid. At this time the patient is extremely reluctant to consider any form of adjunct therapy. Specifically he does not wish to try at this time duloxetine, gabapentin or pregabalin. He is doing well at this time. Patient will be discharged with Dilaudid DIESEL BUS MECHANIC pump. As well as his fentanyl patch. Has been arranged with home health and will be set up when he gets home. Patient be given additional milligram of Dilaudid prior to discharge. Qualifiers: Abdominal location: generalized Qualified Code(s): R10.84 - Generalized abdominal pain (2) Goals of care, counseling/discussion Current Visit: Yes Status: Acute Assessment and plan: Currently full code. Patient's goal of care is to consider doing full chemotherapy and/or radiation therapy if this is available to him. Interventional pain management. Patient's CODE STATUS is full and this will remain as such for the time being. 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 l. (3) Cancer associated pain Current Visit: Yes Status: Acute Assessment and plan: Currently I am collaborating with pharmacy and patient has now been seen by interventional pain. As already noted the patient does not wish to consider any adjunct to give management at this time. He wishes to continue to use the DIESEL BUS MECHANIC pump and the patches. As he is regarding getting relief at this time I will not change anything. He has convinced Dr. Do to provide the DIESEL BUS MECHANIC pump as an outpatient. Social work is working to make this happen.. At the time of discharge the DIESEL BUS MECHANIC pump has been arranged via the social work folks. I have confirmed this with home health care. Patient will be discharged home with an additional milligram of Dilaudid and will be set up for him when she gets home. Patient does have a port. (4) Nausea & vomiting Current Visit: Yes Status: Acute Assessment and plan: he is currently requesting making his Phenergan 25 mg and Zofran 8 mg at 2 hour intervals so he can have one of the other every 4 hours as needed. I have made this adjustment we will continue to watch. Concern at this time about QTc prolongation with the amount of ondansetron the patient is getting in addition to Phenergan. e KG obtained today is at 0.39 QTc so we still have some room to work. Patient does not wish to consider Reglan, although this has been recommended to him by surgery and by myself. Patient is doing much better at this time and wishes to remain on the same medications. I am making no changes final decision will be pending the hospitalist team. Qualifiers: Vomiting type: unspecified Vomiting Intractability: intractable Qualified Code(s): R11.2 - Nausea with vomiting, unspecified (5) Obstipation Current Visit: Yes Status: Acute Assessment and plan: Surgery is following and the patient does seem to be responding to enemas. No new recommendations at this time. Small bowel follow-through, no obstruction. Patient has been advanced to full diet by surgery and senna has been prescribed. Discussed with surgery about the possibility of Reglan they have already recommended to the patient and he is "not a fan" Recommend the patient be on senna twice a day but he will refuses to start until after his bowels start to form up a little bit he is having amounts of diarrhea at this time and feels that he is fully cleaned out. (6) Pancreatic cancer Current Visit: No Status: Acute Assessment and plan: Per the patient already diagnosed as metastatic. He wishes to keep all options open regarding chemotherapy and/or radiation therapy if possible.. Chemotherapy is scheduled to start as early as Saturday. Qualifiers: Pancreatic malignancy location: tail of pancreas Qualified Code(s): C25.2 - Malignant neoplasm of tail of pancreas - Time Spent With Patient Total time spent is greater than 50% in coordination of care (as documented) at patient's floor/unit and/or counseling patient: - Subjective Interval history: The patient reports that his bowels are moving better now. He is having bowel movements without enemas at this time. Overall he is feeling somewhat better. Feels he will need to have his DIESEL BUS MECHANIC pump to be up to go home and this has now been approved and is ready to be set up as soon as he is discharged. Having some any bowel movements at this time ll. - Constitutional Vitals: Abnormal lab results MPV 8.3 fL (9.4-12.4) L 07/03/16 03:12 APTT 25.9 Seconds (26.0-36.0) L 07/02/16 05:16 Sodium 134 mEq/L (136-145) L 07/03/16 03:12 Glucose 126 mg/dL (70-99) H 07/03/16 03:12 Calculated Osmolality 278 (280-300) L 07/03/16 03:12 Alkaline Phosphatase 136 Units/L (38-126) H 07/03/16 03:12 Serum Total Protein 5.9 g/dL (6.0-8.3) L 07/03/16 03:12 Albumin 2.9 g/dL (3.5-5.0) L 07/03/16 03:12 Albumin/Globulin Ratio 1.0 (1.1-2.2) L 07/03/16 03:12 Lipase 7 Units/L (8-78) L 07/01/16 01:31 Ur Squamous Epith Cells Moderate per lpf (None-Few) H 07/01/16 04:00 General appearance: Present: no acute distress - Head Head exam: Present: atraumatic - Eye Eye exam: Present: normal appearance - ENT ENT exam: Present: mucous membranes moist - Respiratory Respiratory exam: Present: CTAB - Cardiovascular Cardiovascular exam: Present: RRR - GI/Abdominal GI/Abdominal exam: Present: normal bowel sounds, soft. Absent: tenderness - Extremities Exam Extremities exam: Present: normal inspection. Absent: pedal edema, tenderness - Neurological Exam Neurological exam: Present: alert - Psychiatric Psychiatric exam: Present: normal affect, normal mood. Absent: agitated, anxious - Skin Skin exam: Present: dry, warm Palliative Quality Palliative Quality: Screen for Code Status: Yes, Screen for Goals of Care: Yes, Screen for Pain: Yes, If Pain Regimen Started, Initiate Bowel Regimen: Yes, Screen for Nausea/Vomitting: Yes - Labs CBC & Chem 7: 07/03/16 03:12 07/03/16 03:12 - Impressions Impressions Guidance Needle Placement Ultrasound 07/05/16 00:00 IMPRESSION: Successful ultrasound and fluoroscopy guided Port-A-Cath placement D/ / Alex Hernández MD / Alex Hernández MD Interpreting Provider: Alex Hernández MD Insertion Tunneled Catheter 07/05/16 00:00 IMPRESSION: Successful ultrasound and fluoroscopy guided Port-A-Cath placement D/ / Alex Hernández MD / Alex Hernández MD Interpreting Provider: Alex Hernández MD - ABG Interpretation ABG results: PT/INR, D-dimer PT 11.9 Seconds (9.4-12.1) 07/02/16 05:16 Consult Discharge Plan - Plan Referrals: Saundra Stahl MD [Primary Care Provider] -
[2016-07-05] MEDS ORDERED: Simethicone 80 MG TAB.CHEW PO PRN (12:48)
[2016-07-05 13:51] VITALS: BP 149/105
[2016-07-05] MEDS ORDERED: *HR* HYDROmorphone 2 MG/ML SYRINGE IVP ONE (14:17)
--- NOTE | 2016-07-05 14:46 | Discharge Summary ---
Date of Encounter: 07/05/16 Time of Encounter: 14:20 - Discharge Diagnosis (1) Obstipation Priority: Primary Status: Acute (2) Pancreatic cancer Priority: Primary Status: Acute Qualifiers: Pancreatic malignancy location: tail of pancreas Qualified Code(s): C25.2 - Malignant neoplasm of tail of pancreas (3) Cancer associated pain Priority: Primary Status: Acute (4) Goals of care, counseling/discussion Priority: Primary Status: Acute - Discharge Medications Prescriptions: Amlodipine [Norvasc] 10 mg PO DAILY #30 tablet Docusate [Colace] 100 mg PO BID #60 capsule Polyethylene Glycol 3350 [MiraLAX Powder Bulk 17.9 Oz] 1 scoop PO DAILY #510 gm Promethazine [Phenergan] 25 mg PO Q4H PRN #180 tablet PRN Reason: Nausea Home Medications: Atomoxetine HCl [Strattera] 100 mg PO DAILY 04/25/16 [History] Lansoprazole [Prevacid] 30 mg PO DAILY 04/25/16 [History] Loratadine/Pseudoephedrine [[facility] Loratadine-D 24Hr Tablet] 1 tab PO DAILY [History] Docusate [Colace] 100 mg PO PRN PRN 06/01/16 [History] Ondansetron HCl [Zofran] 8 mg PO BID PRN #60 tablet 06/19/16 [Rx] FentaNYL PATCH [Duragesic] 50 mcg TD Q72H #10 patch.td72 06/25/16 [Rx] Lubiprostone [Amitiza] 24 mcg PO BID #60 capsule 06/25/16 [Rx] PredniSONE 10 mg PO DAILY #30 tablet 06/25/16 [Rx] FentaNYL PATCH [Duragesic] 100 mcg TD Q72H #10 patch.td72 07/04/16 [Rx] Amlodipine [Norvasc] 10 mg PO DAILY #30 tablet 07/05/16 [Rx] Docusate [Colace] 100 mg PO BID #60 capsule 07/05/16 [Rx] Polyethylene Glycol 3350 [MiraLAX Powder Bulk 17.9 Oz] 1 scoop PO DAILY #510 gm 07/05/16 [Rx] Promethazine [Phenergan] 25 mg PO Q4H PRN #180 tablet 07/05/16 [Rx] Allergies/Adverse Reactions: Allergies hydrocodone Allergy (Verified 07/01/16 01:08) Itching Iodinated Contrast Media - Oral and Allergy (Verified 07/01/16 01:08) Rash Amoxicillin [From Augmentin] Adverse Reaction (Verified 07/01/16 01:08) Gastrointestinal Upset clavulanic acid [From Augmentin] Adverse Reaction (Verified 07/01/16 01:08) Gastrointestinal Upset codeine Adverse Reaction (Verified 07/01/16 01:08) Gastrointestinal Upset morphine Adverse Reaction (Verified 07/01/16 01:08) Nausea Procedures/tests Complete & Pending: Procedures Performed prior 72 hours Category Date Time Status IR cvc insert with port [IR] Routine IR 07/05/16 Completed IR us guide needle place [IR] Routine IR 07/05/16 Completed EKG [ECG 12 lead ECG] [ECG] Stat Y 07/04/16 10:20 Completed Date of admission: 07/03/16 09:21 Primary care physician: Saundra Disla Discharging clinician: Maggy Velazquez Anticipated date of discharge: 07/05/16 - Patient Status Disposition: Home Health Service Condition: Fair Functional capacity at discharge: independent ambulation Overall status at discharge: patient is back to baseline - Discharge Instructions Follow Up With: Cristina Canales MD [Partnered Physician] - 07/10/16 3:30 pm Saundra Stahl MD [Primary Care Provider] - ( IS TO FOLLOW) - Diet and Activity Activity: resume usual activities as tolerated Diet: advance to your usual diet Interval History: This is a 46 year old male with stage 4 metastatic pancreatic cancer with intractable abdominal pain. He states that he has not had a bowel movement in the past 3 weeks despite trying Magnesium citrate, dulcolax, fleet enemas, coffee enemas, soap suds enemas, and glycerin suppositories. He complains of mid abdominal pain that radiates to the RLQ that is constant and severe. CT of the abdomen demonstrated inflammation in the terminal ileum. Additionally he reports nausea and inability to keep down food for the last day. He denies fevers and chills. He has not been passing flatus until his arrival to the ED. he was admitted for pain control and obstipation gen surgery was consulted, he had multiple enemas with bowel regimen and SBFT. HE was able to move his bowels gradually. pain control was finally acheived with assistacne from palliative team. pain mx was also consulted and recommended possible nerve block which will be done as OP. he is being dc in stable condition, he will continue pain medication via [employer] managed by DR. canales who is also his primary oncologist until he gets the nerve block. he has a port placed and is looking forward to starting chemotherapy for his newly diagnosed cancer in the near future. he has been started on norvas given elevated BP while inpatinet. after dc, he will f/u with the cancer center for further management. Hospital course: Mr. Sosa is a 46 year old male Time spent discussing smoking cessation with patient: more than 10 minutes - Time Spent with Patient Total time spent providing and/or coordinating discharge services: Greater than 30 minutes - Constitutional Vitals: Temp Pulse Resp BP Pulse Ox 98.0 F 97 16 149/105 99 07/05/16 13:35 07/05/16 13:35 07/05/16 13:35 07/05/16 13:35 07/05/16 13:35 General appearance: Present: cooperative, A&O X 3, pleasant, answers questions appropriately Exam: Eyes normal ocular movement - ENT normal mucosa, atraumatic, normocephalic - Neck trachea midline - Respiratory normal respiratory effort, clear to auscultation - Cardiovascular Cardiovascular exam: Present: RRR - Abdomen Abdomen general surgery: Present: bowel sounds present (hypoactive),non tender, soft, distended - Integumentary Integumentary general surgery: Present: warm and dry - Neurologic Present: CN 2-12 grossly intact - Musculoskeletal Present: normal posture - Psychiatric Psychiatric general surgery: Present: appropriate, oriented to person, oriented to place, oriented to time, speech is normal, memory intact
--- NOTE | 2016-07-05 14:48 | Physician Discharge Referral ---
Home Health/Hosp Referral Info Transfer to: Home Health Attending Provider: josefina campos - Diagnosis (1) Obstipation Status: Acute (2) Pancreatic cancer Status: Acute (3) Cancer associated pain Status: Acute (4) Goals of care, counseling/discussion Status: Acute - Respiratory Orders Smoking Cessation: Smoking cessation has been advised. For more information, call the [place] Tobacco Quit Line at 7-190-YXVC-NOW. - Diet/Nutrition Diet/Nutrition Orders: Regular - Activity Activity Orders: Ambulate - Services Needed Following services are medically necessary services: Home Health Aide, Home Infusion - Transfer Medications Prescriptions: Amlodipine [Norvasc] 10 mg PO DAILY #30 tablet Docusate [Colace] 100 mg PO BID #60 capsule Polyethylene Glycol 3350 [MiraLAX Powder Bulk 17.9 Oz] 1 scoop PO DAILY #510 gm Promethazine [Phenergan] 25 mg PO Q4H PRN #180 tablet PRN Reason: Nausea Home Medications: Atomoxetine HCl [Strattera] 100 mg PO DAILY 04/25/16 [History] Lansoprazole [Prevacid] 30 mg PO DAILY 04/25/16 [History] Loratadine/Pseudoephedrine [[facility]vs Loratadine-D 24Hr Tablet] 1 tab PO DAILY [History] Docusate [Colace] 100 mg PO PRN PRN 06/01/16 [History] Ondansetron HCl [Zofran] 8 mg PO BID PRN #60 tablet 06/19/16 [Rx] FentaNYL PATCH [Duragesic] 50 mcg TD Q72H #10 patch.td72 06/25/16 [Rx] Lubiprostone [Amitiza] 24 mcg PO BID #60 capsule 06/25/16 [Rx] PredniSONE 10 mg PO DAILY #30 tablet 06/25/16 [Rx] FentaNYL PATCH [Duragesic] 100 mcg TD Q72H #10 patch.td72 07/04/16 [Rx] Amlodipine [Norvasc] 10 mg PO DAILY #30 tablet 07/05/16 [Rx] Docusate [Colace] 100 mg PO BID #60 capsule 07/05/16 [Rx] Polyethylene Glycol 3350 [MiraLAX Powder Bulk 17.9 Oz] 1 scoop PO DAILY #510 gm 07/05/16 [Rx] Promethazine [Phenergan] 25 mg PO Q4H PRN #180 tablet 07/05/16 [Rx] Allergies/Adverse Reactions: Allergies hydrocodone Allergy (Verified 07/01/16 01:08) Itching Iodinated Contrast Media - Oral and Allergy (Verified 07/01/16 01:08) Rash Amoxicillin [From Augmentin] Adverse Reaction (Verified 07/01/16 01:08) Gastrointestinal Upset clavulanic acid [From Augmentin] Adverse Reaction (Verified 07/01/16 01:08) Gastrointestinal Upset codeine Adverse Reaction (Verified 07/01/16 01:08) Gastrointestinal Upset morphine Adverse Reaction (Verified 07/01/16 01:08) Nausea Certification: Further, I certify that my clinical findings support that this patient is homebound (i.e. absences from home require considerable and taxing effort and are for medical reasons or jehovah's witness services or infrequently or short duration when for other reasons) because: Homebound Reason: Patient requires assistance of a person or device to safely leave home Attestation: My signature below is to certify that this patient is under my care and that I, or nurse practitioner, or a physician's assistant manager pt working with me, has a face-to -face encounter with this patient.
--- NOTE | 2016-07-06 15:17 | Electrocardiograph Report ---
[place] [id number] Test Date: 2016-07-04 Pat Name: Santos Sosa Department: 115 Room: 3A25 Gender: M [employer]: : 1970 Requested By: Maggy Velazquez Order Number: [id number] Reading MD: Saundra May Measurements Intervals Pablo Rate: 95 P: 17 CT: 159 QRS: -4 QRSD: 85 T: 57 QT: 354 QTc: 407 Interpretive Statements SINUS RHYTHM LOW QRS VOLTAGE IN PRECORDIAL LEADS POSSIBLE RIGHT VENTRICULAR CONDUCTION DELAY NONSPECIFIC T-WAVE ABNORMALITY Electronically Signed On 07-06-2016 15:15:22 EST by Saundra May
== END 2016-07-05 16:58 | disposition home health service (06) | DRG 436 ==
LOC: EMEROO 01:06 → 3ANU 01:06
PROVIDERS: ADMIT Internal Medicine; ATTEND Internal Medicine Endocrinology, Diabetes & Metabolism

== ENCOUNTER 2016-07-28 17:42 | Inpatient (IN) ==
[2016-07-28] MEDS ORDERED: *HR* Promethazine 25 MG/ML VIAL IVP ONE ×2 (18:23→22:55)
[2016-07-28] MEDS ORDERED: 0.9 % Sodium Chloride 1,000 ML IVC ONE (18:23)
[2016-07-28 19:03] LABS: Hematocrit 36.1 % (37.5-50.1); Hemoglobin 12.8 g/dL (12.9-16.9); Mean Corpuscular HGB Conc 35.5 g/dL (31.6-35.5); Mean Platelet Volume 8.4 fL (9.4-12.4); Platelet Count 315 K/mcL (140-400); Red Blood Count 4.42 M/mcL (4.19-5.50); Red Cell Distribution Width 12.3 % (11.5-14.5)
[2016-07-28 19:04] LABS: Mean Corpuscular Volume 81.7 fL (83.0-100.0)
--- NOTE | 2016-07-28 19:17 | Emergency Department Note ---
Disposition Clinical Impression: Intractable nausea and vomiting Qualifiers: Vomiting type: unspecified Qualified Code(s): R11.2 - Nausea with vomiting, unspecified Pancreatic cancer Qualifiers: Pancreatic malignancy location: unspecified Qualified Code(s): C25.9 - Malignant neoplasm of pancreas, unspecified Disposition: Admitted As Inpatient Condition: Serious Time of Disposition: 21:17 Abdominal Pain HPI - General Chief Complaint: ED Abdominal Pain Stated Complaint: Abd Pain n/v "Full of Fluid" Time Seen by Provider: 07/28/16 17:56 Source: patient, family Mode of arrival: ambulatory Limitations: no limitations Nursing Notes Reviewed: Yes Vital Signs Reviewed: Yes - History of Present Illness HPI Narrative: 46-year-old male with history of pancreatic adenocarcinoma, presents with abdominal pain, distention and nausea and vomiting. Patient was seen previously in the hospital and discharge with kind of care, for pancreatic cancer. Patient states that he has previously had 3 L and 5 L drained from his abdomen, and thinks that he is in need of a paracentesis at bedside. Patient reports that despite antiemetics at home he has had persistent nausea and vomiting she has fallen by oncology, Dr. Do. Patient reports 40 pounds weight loss in the last month, intermittent subjective fevers, he has been getting chemotherapy. Patient denies chest pain, LIRIANO, weakness Pt Subjective Complaint: abdominal pain Onset (ago): hour(s) Consistency: constant Location: diffuse Pain Severity: moderate Pain Scale: 8 Quality: aching Radiation: none Improves with: nothing Associated symptoms: Reports: nausea, vomiting. Denies: diarrhea, fever, constipation - Related Data Home Medications Medication Instructions Recorded Confirmed Atomoxetine HCl [Strattera] 100 mg PO DAILY 04/25/16 07/01/16 Lansoprazole [Prevacid] 30 mg PO BID 04/25/16 07/01/16 Loratadine/Pseudoephedrine [[facility] 1 tab PO DAILY 04/25/16 07/01/16 Loratadine-D 24Hr Tablet] Docusate [Colace] 100 mg PO PRN PRN 06/01/16 07/01/16 Dilaudid 20 MG/20 ML ENTRY SPECIALIST 07/28/16 Ondansetron HCl [Zofran] 8 mg PO TID 07/28/16 07/28/16 Previous Rx's Medication Instructions Recorded Lubiprostone [Amitiza] 24 mcg PO BID #60 capsule 06/25/16 PredniSONE 10 mg PO DAILY #30 tablet 06/25/16 FentaNYL PATCH [Duragesic] 100 mcg TD Q72H #10 patch.td72 07/04/16 Polyethylene Glycol 3350 [MiraLAX 1 scoop PO DAILY #510 gm 07/05/16 Powder Bulk 17.9 Oz] Promethazine [Phenergan] 25 mg PO Q4H PRN #180 tablet 07/05/16 Magic Mouthwash 10 ml PO Q4H PRN #240 ml 07/16/16 Naloxone HCl [Narcan] 4 mg NS AD #4 spray 07/16/16 Oseltamivir [Tamiflu] 75 mg PO DAILY #10 capsule 07/18/16 Cholecalciferol (Vitamin D3) 50,000 unit PO QWEEK #14 tab 07/27/16 [Dialyvite Vitamin D3 Max] Allergies Allergy/AdvReac Type Severity Reaction Status Date / Time hydrocodone Allergy Itching Verified 07/28/16 17:50 Iodinated Contrast Media - Allergy Rash Verified 07/28/16 17:50 Oral and Amoxicillin [From Augmentin] AdvReac Gastrointestinal Verified 07/28/16 17:50 Upset clavulanic acid AdvReac Gastrointestinal Verified 07/28/16 17:50 [From Augmentin] Upset codeine AdvReac Gastrointestinal Verified 07/28/16 17:50 Upset morphine AdvReac Nausea Verified 07/28/16 17:50 All systems ED: reviewed and negative except as stated. Constitutional: Reports: as per HPI, chills, weakness, weight change. Denies: fever Cardiovascular: Denies: chest pain, palpitations Respiratory: Reports: cough Gastrointestinal: Reports: as per HPI, abdominal pain, nausea, vomiting. Denies : diarrhea Genitourinary: Denies: urgency, dysuria Musculoskeletal: Denies: back pain, neck pain Integumentary: Denies: rash Neurological: Denies: headache Abdominal Pain PMH - Past Medical History Medical history: Reports: cancer Male Surgical History: Reports: other (Partial colectomy) Psychiatric history: Reports: ADHD - Social History Smoking status: Never smoker Alcohol use: Reports: rarely Drug use: Reports: none Physical Exam Constitutional: Cachectic male mildly tachycardic in moderate distress. HEENT: Frontal temporal wasting. Neck: normal inspection, neck is supple, trachea midline Resp: normal chest inspection, CTA bilaterally, no resp distress CV: RRR, no m/g/r GI: Distended abdomen with hypoactive bowel sounds, fluid wave, moderate tenderness to palpation diffusely Back: normal inspection, no tenderness to palpation Neuro: A&O3, no gross motor or sensory deficits bilaterally Skin: Jaundice - General Limitations: physical limitation General appearance: alert, in no apparent distress Course Course Narrative: 46yo with abdominal distention nausea vomiting, we will treat with IV fluids and antiemetics, labs are at baseline, hyponatremia, a bedside paracentesis, for comfort. - Reevaluation(s) Reevaluation #1: 5200cc of clear yellow fluid drained patient tolerated well patient's, admitted to the hospitalist for further management of intractable nausea and vomiting. Patient currently stable hemodynamically at time of ED disposition Time: 21:18 Vital Signs Temperature 97.5 F L 07/28/16 17:51 Pulse Rate 102 07/28/16 17:51 Respiratory Rate 15 07/28/16 17:51 Blood Pressure 96/72 07/28/16 17:51 O2 Sat by Pulse Oximetry 98 07/28/16 17:51 Temperature 97.5 F L 07/28/16 17:51 Pulse Rate 95 07/28/16 20:22 Respiratory Rate 17 07/28/16 20:22 Blood Pressure 108/67 07/28/16 20:22 O2 Sat by Pulse Oximetry 98 07/28/16 20:22 Oxygen Delivery Oxygen Delivery Nasal Cannula,Non Rebreather Mask Procedures - Paracentesis Consent Obtained: written consent Time Out Performed: Yes Indication: Ascites Procedure: therapeutic paracentesis Location: LLQ Local Anesthetic: lidocaine 1% Amount of anesthesia used (mL): 6 Bedside Ultrasound Used: yes, Ascites confirmed and location marked Preparation: 11 blade used to make tanya in skin Amount of Fluid Obtained: 5,200 Fluid: clear, cloudy Size of Needle Used: 8 Post Procedure Exam: awake, alert, normal BP, normal HR, normal SpO2 Patient Tolerated Procedure: well Complications: none Additional Comments: Dr Rene Kim Abdominal Pain - [facility] Narrative Medical decision making narrative: 46-year-old male with a creatinine cancer after bedside paracentesis, admitted to the hospital service for intractable nausea vomiting, pain control. - Differential Diagnosis Differential Diagnosis: Likely: abdominal pain non-specific, acute appendicitis , diverticulitis - Medical Records Medical records reviewed: Yes I reviewed the patient's medical records. - Lab Data Lab results reviewed: Yes I reviewed the patient's lab results. Result diagrams: 07/28/16 18:50 07/28/16 18:50 Lab Results 07/28/16 07/28/16 07/28/16 Range/Units 18:50 18:50 18:50 WBC 6.4 D (4.3-11.1) K/mcL RBC 4.42 (4.19-5.50) M/mcL Hgb 12.8 L (12.9-16.9) g/dL Hct 36.1 L (37.5-50.1) % MCV 81.7 L (83.0-100.0) fL MCH 29.0 (28.0-33.3) pg MCHC 35.5 (31.6-35.5) g/dL RDW 12.3 (11.5-14.5) % Plt Count 315 D (140-400) K/mcL MPV 8.4 L (9.4-12.4) fL Seg Neutrophils % 74.0 % Band Neutrophils % 10.0 H (0-4) % Lymphocytes % 2.0 % Monocytes % 14.0 % Neutrophils # 5.4 (1.6-8.9) K/mcL Lymphocytes # 0.1 L (0.6-4.6) K/mcL Monocytes # 0.9 (0.0-1.3) K/mcL Reactive Lymphocytes Present A (Not Present) Toxic Granulation Present A (Not Present) Platelet Estimate Normal (Normal) Large Platelets Present A (Not Present) Sodium 124 L (136-145) mEq/L Potassium 3.1 L (3.5-4.5) mEq/L Chloride 82 L (98-109) mEq/L Carbon Dioxide 24 (19-29) mEq/L BUN 23 (8-26) mg/dL Creatinine 0.85 (0.72-1.25) mg/dL Est GFR ( Amer) > 60 (> 60) Est GFR (Non-Af Amer) > 60 (> 60) BUN/Creatinine Ratio 27 H (6-26) Glucose 120 H (70-99) mg/dL Calculated Osmolality 263 L (280-300) Calcium 8.6 (8.6-10.8) mg/dL Total Bilirubin 0.6 (0.2-1.2) mg/dL AST 19 (5-34) Units/L ALT 22 (0-55) Units/L Alkaline Phosphatase 122 (38-126) Units/L Troponin I 0.01 (0-0.03) ng/mL Serum Total Protein 5.6 L (6.0-8.3) g/dL Albumin 2.0 L (3.5-5.0) g/dL Globulin 3.6 H (2.4-3.5) g/dL Albumin/Globulin Ratio 0.6 L (1.1-2.2) - Radiology Data Radiology results reviewed: Yes I reviewed the patient's radiology results. - EKG Data EKG attestation: Yes I reviewed and interpreted this EKG. EKG results narrative: 96 bpm ME 159 she rests 85 QTC 426, seizing elevations or depressions. Rate: normal Rhythm: NSR [place]/QRS: normal When compared to previous EKG there are: previous EKG unavailable Interpretation: no acute changes - Core Measures AMI Core Measures Followed: No Measure Exclusions: not indicated
[2016-07-28 19:18] LABS: Alanine Aminotransferase 22 Units/L (0-55); Albumin/Globulin Ratio 0.6 (1.1-2.2); Alkaline Phosphatase 122 Units/L (38-126); Aspartate Amino Transferase 19 Units/L (5-34); BUN/Creatinine Ratio 27 (6-26); Bilirubin,Total 0.6 mg/dL (0.2-1.2); Blood Urea Nitrogen 23 mg/dL (8-26); Calcium 8.6 mg/dL (8.6-10.8); Carbon Dioxide 24 mEq/L (19-29); Chloride 82 mEq/L (98-109); Globulin 3.6 g/dL (2.4-3.5); Glucose 120 mg/dL (70-99); Osmolality,Calculated 263 (280-300); Potassium 3.1 mEq/L (3.5-4.5); Sodium 124 mEq/L (136-145); Total Protein 5.6 g/dL (6.0-8.3); eGFR For African Americans > 60 (> 60); eGFR For Non-African Americans > 60 (> 60)
[2016-07-28 19:24] LABS: Lymphocytes # 0.1 K/mcL (0.6-4.6); Monocytes # 0.9 K/mcL (0.0-1.3); Neutrophils # 5.4 K/mcL (1.6-8.9); Platelet Estimate Normal (Normal); Toxic Granulation Present (Not Present)
[2016-07-28 19:25] LABS: Large Platelets Present (Not Present); Reactive Lymphocytes Present (Not Present)
--- NOTE | 2016-07-28 19:55 | Emergency Department Note ---
START Narrative - START START: I examined this patient and my medical decision-making was reviewed with the SENIOR DB2 SYSTEMS PROGRAMMER/PA/Advanced Practice Nurse/Resident Physician. I agree with the documented findings, disposition and treatment plan as described except to the extent set forth below. ED attending note: Patient seen with emergency medicine resident Dr. López. Please see a copy of his note for details of the H&P, evaluation, management and disposition of this patient. 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 Recently diagnosed with advanced/end-stage pancreatic cancer with metastasis. Has been seen several times in the ED for complications secondary to his cancer specifically ascites, intractable abdominal pain, and intractable nausea and vomiting. Patient presents with intractable vomiting and abdominal distention secondary to ascites. Point of care ultrasound shows ascites. Were giving him IV Phenergan to control vomiting since he broke through his home Zofran. Patient has a pain pump and says his pain is fairly well controlled. We will be performing a bedside paracentesis to withdraw fluid for a palliative effects and patient comfort. Admission is anticipated for control of intractable vomiting and palliative care. Disposition pending.
[2016-07-28] MEDS ORDERED: 0.9 % Sodium Chloride 1,000 ML IVC SCH (20:45)
[2016-07-28] MEDS ORDERED: Ondansetron 4 MG/2 ML VIAL IVP ONE (21:28)
[2016-07-28] MEDS: 0.9 % Sodium Chloride 1,000 ML IVC SCH (22:00)
[2016-07-28] MEDS: *HR* HYDROmorphone 20 MG/20 ML PCA IVC PRN (23:23)
[2016-07-28] MEDS ORDERED: Naloxone 0.4 MG/ML INJ IVP PRN (23:25)
[2016-07-28] MEDS ORDERED: *HR* Promethazine 25 MG/ML VIAL IVP PRN (23:28)
--- NOTE | 2016-07-28 23:30 | Internal Med History&Physical ---
Date of Encounter: 07/28/16 Time of Encounter: 23:00 Assessment and Plan (1) Hyponatremia Current visit: Yes Status: Acute Possibly secondary to volume depletion from vomiting and diarrhea. Will treat with intravenous normal saline and monitor sodium levels. (2) Adult failure to thrive Current visit: Yes Status: Acute Patient has a poor appetite. He is not able to tolerate oral feeds due to nausea and vomiting. He apparently lost about 50 pounds in the last 10 weeks. Nutritional supplements. Consider TPN (3) Hypokalemia Current visit: Yes Status: Acute Possibly due to GI losses from vomiting and diarrhea. Initial potassium intravenously. Check magnesium level and the replenish as needed. (4) Volume depletion, gastrointestinal loss Current visit: Yes Status: Acute Due to GI losses from vomiting and diarrhea. Treat with IV fluids and antiemetics. (5) Diarrhea Current visit: Yes Status: Acute Possibly secondary to chemotherapy. Consider Oncology consult Qualifiers: Diarrhea type: unspecified type Qualified Code(s): R19.7 - Diarrhea, unspecified (6) Abdominal pain Current visit: Yes Status: Chronic Possibly secondary to peritoneal metastasis. Patient is on fentanyl patch on Dilaudid DIRECTOR [employer] TRAVEL. Continue Qualifiers: Abdominal location: generalized Qualified Code(s): R10.84 - Generalized abdominal pain (7) Nausea & vomiting Current visit: Yes Status: Acute Treat with antiemetics and supportive care Qualifiers: Vomiting type: unspecified Vomiting Intractability: intractable Qualified Code(s): R11.2 - Nausea with vomiting, unspecified (8) Pancreatic cancer Current visit: Yes Status: Chronic Stage 4 pancreatic adenocarcinoma with metastasis to liver and peritoneum. supportive care. Consult Dr Do Qualifiers: Pancreatic malignancy location: unspecified Qualified Code(s): C25.9 - Malignant neoplasm of pancreas, unspecified (9) Malignant ascites Current visit: Yes Status: Chronic Secondary to peritoneal metastasis. 5200 ml of fluid drained in the ER. 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 He presented to the emergency department with abdominal pain, distention and nausea and vomiting. He was noted to have ascites and paracentesis with removal of 5200 mL of clear yellow fluid, done in the emergency department. Patient was noted to be hyponatremic (sodium: 124) and admitted to the hospitalist service for further management. Patient reports that he is not able to keep food down, with nausea and vomiting. He has been on salty fluid. Denies hematemesis. He has poor appetite. He apparently lost about 50 pounds in the last 10 weeks. He was recently admitted for obstipation, which was relieved with the laxatives, enemas and Gastrografin small bowel follow-through. He reports diarrhea since his been started on chemotherapy reports small volume, foul smelling feces. No hematochezia or melena reported. He reports diffuse abdominal pain - his fentanyl was recently increased to 100 micrograms and he is also on dilaudid DIRECTOR [employer]. He denies cough, expectoration, fever, chills, shortness of breath, chest pain. Past Med Surg Social Fam HX - Past Medical History Medical history: cancer Psychiatric history: ADHD - Past Surgical History Surgical History: orthopedic, other, other - Social History Smoking Status: Never smoker Smokeless Tobacco Status: No Alcohol use: rarely Drug use: none - Family History Mother Living Status: Hx Family Cardiac Disorders: Yes (HTN) Hx Family Cancer: Yes (Colon) Hx Family Endocrine Disorder: Yes (Diabetes) Father Living Status: Hx Family Cardiac Disorders: Yes (CAD, AFIB) Hx Family Endocrine Disorder: Yes (cromegaly) Internal Medicine - H&P: Meds FentaNYL PATCH [Duragesic] 100 mcg TD Q72H #10 patch.td72 07/04/16 [Rx] Dilaudid 20 MG/20 ML DIRECTOR BUSINESS TRAVEL 07/28/16 [History] Ondansetron HCl [Zofran] 8 mg PO TID 07/28/16 [History] Allergies hydrocodone Allergy (Verified 07/28/16 17:50) Itching Iodinated Contrast Media - Oral and Allergy (Verified 07/28/16 17:50) Rash Amoxicillin [From Augmentin] Adverse Reaction (Verified 07/28/16 17:50) Gastrointestinal Upset clavulanic acid [From Augmentin] Adverse Reaction (Verified 07/28/16 17:50) Gastrointestinal Upset codeine Adverse Reaction (Verified 07/28/16 17:50) Gastrointestinal Upset morphine Adverse Reaction (Verified 07/28/16 17:50) Nausea All Systems PM: A 10-system review of systems was performed and is negative for pertinent findings except as documented above in the HPI. - Constitutional Vitals: Temp Pulse Resp BP Pulse Ox 97.5 F L 95 18 109/67 98 07/28/16 17:51 07/28/16 20:22 07/28/16 21:39 07/28/16 21:39 07/28/16 20:22 Exam: General: Not in acute distress at the time of my evaluation HEENT: Oral mucosa is dry. No conjunctival palor or scleral icterus Neck: No obvious neck swellings Lungs: Clear to auscultation Cardiac: Regular rate and rhythm. No significant murmurs Abdomen: Distended, hard and nodular on palpation. Diffuse tenderness. Bowel sounds present Genitourinary: No mendieta catheter Neurological: Alert and oriented. No gross localizing deficits Psych: Not aggressive or agitated Extremities: no significant leg edema Skin: No generalized rash Internal Med - H&P Results - Labs CBC & Chem 7: 07/29/16 05:33 07/29/16 05:33 - EKG Data -: EKG Interpreted by Myself
[2016-07-28] MEDS: Pantoprazole 40 MG VIAL IVP SCH (23:59)
[2016-07-29] MEDS: Pantoprazole 40 MG VIAL IVP SCH ×2 (05:31→17:37)
[2016-07-29] MEDS: *HR* Heparin 5,000 UNIT/ML VIAL SQ SCH ×3 (05:32→19:39)
[2016-07-29 05:41] LABS: Hematocrit 33.5 % (37.5-50.1); Hemoglobin 11.9 g/dL (12.9-16.9); Lymphocytes # 0.4 K/mcL (0.6-4.6); Mean Corpuscular HGB Conc 35.5 g/dL (31.6-35.5); Mean Corpuscular Hemoglobin 29.5 pg (28.0-33.3); Mean Corpuscular Volume 82.9 fL (83.0-100.0); Mean Platelet Volume 8.6 fL (9.4-12.4); Platelet Count 318 K/mcL (140-400); Red Blood Count 4.04 M/mcL (4.19-5.50); Red Cell Distribution Width 12.5 % (11.5-14.5)
[2016-07-29 05:51] LABS: BUN/Creatinine Ratio 29 (6-26); Blood Urea Nitrogen 23 mg/dL (8-26); Carbon Dioxide 23 mEq/L (19-29); Chloride 90 mEq/L (98-109); Glucose 100 mg/dL (70-99); Osmolality,Calculated 270 (280-300); Potassium 2.6 mEq/L (3.5-4.5); Sodium 128 mEq/L (136-145); eGFR For African Americans > 60 (> 60); eGFR For Non-African Americans > 60 (> 60)
[2016-07-29 05:52] LABS: Calcium 7.1 mg/dL (8.6-10.8)
[2016-07-29] MEDS ORDERED: Potassium Chloride 20 MEQ, Lidocaine 1% 2 ML in D5% in Water 250 ML IVPB ONE (05:53)
[2016-07-29 06:02] LABS: Dohle Bodies Present (Not Present); Monocytes # 0.4 K/mcL (0.0-1.3); Neutrophils # 5.8 K/mcL (1.6-8.9); Platelet Estimate Normal (Normal); Toxic Granulation Present (Not Present)
[2016-07-29 06:24] LABS: Magnesium 1.3 mg/dL (1.6-2.6); Phosphorous 4.2 mg/dL (2.3-4.7)
[2016-07-29] MEDS ORDERED: Potassium Chloride 40 MEQ, Lidocaine 1% 2 ML in D5% in Water 500 ML IVPB ONE (06:28)
[2016-07-29] MEDS ORDERED: Magnesium Sulfate 2 GM in D5% in Water 100 ML IVPB ONE (06:49)
[2016-07-29] MEDS: 0.9 % Sodium Chloride 1,000 ML IVC SCH ×2 (07:13→19:38)
[2016-07-29] MEDS: Ondansetron 4 MG/2 ML VIAL IVP PRN ×3 (08:00→17:47)
[2016-07-29] MEDS: *HR* HYDROmorphone 20 MG/20 ML PCA IVC PRN ×3 (08:09→21:20)
[2016-07-29 08:21] LABS: Bilirubin,Urine Moderate (Negative); Blood,Urine Negative (Negative); Clarity,Urine Cloudy (Clear); Color,Urine Dark Yellow (Yellow); Glucose,Urine (UA) Normal (Normal); Ketones,Urine 15 mg/dL (Negative); Leukocyte Esterase,Urine Negative (Negative); Nitrite,Urine Negative (Negative); Protein,Urine 30 mg/dL (Neg-Trace); Specific Gravity,Urine 1.022 (1.010-1.025); Urobilinogen,Urine Normal (Normal)
[2016-07-29 08:24] LABS: Bacteria,Urine None Seen per hpf (None-Few); RBC,Urine 0-3 per hpf (0-3); Squamous Epithelial Cell,Urine Many per lpf (None-Few)
[2016-07-29 08:33] LABS: Hyaline Casts,Urine Many per lpf (None-Few)
[2016-07-29 08:34] LABS: Granular Casts,Urine Few per lpf (None Seen); Mucus,Urine Few (Few); Waxy Casts,Urine Few per lpf (None Seen)
--- NOTE | 2016-07-29 11:19 | Internal Med Progress Note ---
Date of Encounter: 07/29/16 Time of Encounter: 09:45 - Assessment and plan (1) Dehydration Current Visit: Yes Status: Acute Assessment and plan: Pt admitted with acute volume depletion from intractable nausea and vomiting and diarrhea He is receiving IV fluids at this time. . (2) Intractable nausea and vomiting Current Visit: Yes Status: Acute Assessment and plan: Pt with intractable nausea and vomiting. Seems to be doing somewhat better with current regimen. Qualifiers: Vomiting type: unspecified Qualified Code(s): R11.2 - Nausea with vomiting , unspecified (3) Hyponatremia Current Visit: Yes Status: Acute Assessment and plan: Due to hypovolemia. Recheck today and in AM. (4) Hypokalemia Current Visit: Yes Status: Acute Assessment and plan: Replace today. (5) Protein-calorie malnutrition, severe Current Visit: Yes Status: Acute Assessment and plan: Will plan on starting TPN. Will need PICC line placed. (6) Malignant ascites Current Visit: Yes Status: Chronic Assessment and plan: Paracentesis in ED. Monitoring. (7) Diarrhea Current Visit: Yes Status: Acute Assessment and plan: Most likely mucositis. 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 He is moderate to high risk due to persistent electrolyte abnormalities and need for continued nutrition. Dr. 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 Nausea appears to be controlled with current meds. Pain is fairly controlled. Using Dilaudid QUALITY ASSURANCE TECH intermittently. No fever or chills. Sister here and updated as well. - Constitutional Vitals: Temp Pulse Resp BP Pulse Ox 98.2 F 98 18 108/80 99 07/29/16 11:08 07/29/16 11:08 07/29/16 11:08 07/29/16 11:08 07/29/16 11:08 General appearance: Present: A&O X 3, answers questions appropriately - Head Head exam: Present: normocephalic - Eye Eye exam: Present: conjuntiva pink - ENT ENT exam: Present: mucous membranes dry - Respiratory Respiratory exam: Present: decreased breath sounds, CTAB - Cardiovascular Cardiovascular exam: Present: RRR. Absent: systolic murmur, tachycardia - GI/Abdominal GI/Abdominal exam: Present: distended, hypoactive bowel sounds, soft, tenderness - Extremities Exam Extremities exam: Present: warm. Absent: joint swelling - Neurological Exam Neurological exam: Present: alert, oriented X3, no focal deficits - Skin Skin exam: Present: warm. Absent: rash Internal Medicine: Result - Labs CBC & Chem 7: 07/29/16 05:33 07/29/16 05:33 Labs: Short CBC 07/29/16 Range/Units 05:33 WBC 6.6 (4.3-11.1) K/mcL Hgb 11.9 L (12.9-16.9) g/dL Hct 33.5 L (37.5-50.1) % Plt Count 318 (140-400) K/mcL Neutrophils # 5.8 (1.6-8.9) K/mcL BMP 07/29/16 05:33 Sodium 128 L Potassium 2.6 L Chloride 90 L Carbon Dioxide 23 BUN 23 Creatinine 0.80 Glucose 100 H Calcium 7.1 L D Urine 07/29/16 Range/Units 07:54 Urine Color Dark Yellow (Yellow) Urine Clarity Cloudy A (Clear) Urine pH 6.0 (5.0-8.0) pH Units Ur Specific [place] 1.022 (1.010-1.025) Urine Protein 30 H (Neg-Trace) mg/dL Urine Glucose (UA) Normal (Normal) mg/dL Consult Discharge Plan - Plan Referrals: Saundra Stahl MD [Primary Care Provider] -
[2016-07-29 12:54] LABS: BUN/Creatinine Ratio 32 (6-26); Blood Urea Nitrogen 23 mg/dL (8-26); Carbon Dioxide 24 mEq/L (19-29); Chloride 87 mEq/L (98-109); Glucose 139 mg/dL (70-99); Magnesium 2.2 mg/dL (1.6-2.6); Osmolality,Calculated 264 (280-300); Potassium 3.1 mEq/L (3.5-4.5); Sodium 124 mEq/L (136-145); eGFR For African Americans > 60 (> 60); eGFR For Non-African Americans > 60 (> 60)
[2016-07-29] MEDS: *HR* Promethazine 25 MG/ML VIAL IVP PRN ×3 (15:09→22:43)
[2016-07-29] MEDS ORDERED: Pantoprazole 40 MG VIAL IVP SCH (23:46)
[2016-07-30] MEDS: *HR* Promethazine 25 MG/ML VIAL IVP PRN ×6 (03:06→22:59)
[2016-07-30] MEDS: Ondansetron 4 MG/2 ML VIAL IVP PRN ×4 (04:06→21:31)
[2016-07-30 04:17] LABS: Hematocrit 32.2 % (37.5-50.1); Hemoglobin 11.3 g/dL (12.9-16.9); Mean Corpuscular HGB Conc 35.1 g/dL (31.6-35.5); Mean Corpuscular Volume 82.8 fL (83.0-100.0); Mean Platelet Volume 8.2 fL (9.4-12.4); Platelet Count 313 K/mcL (140-400); Red Blood Count 3.89 M/mcL (4.19-5.50); Red Cell Distribution Width 12.6 % (11.5-14.5)
[2016-07-30 04:21] LABS: INR 3.6; Prothrombin Time 40.1 Seconds (9.4-12.1)
[2016-07-30 04:29] LABS: Alanine Aminotransferase 15 Units/L (0-55); Albumin/Globulin Ratio 0.6 (1.1-2.2); Alkaline Phosphatase 89 Units/L (38-126); Aspartate Amino Transferase 14 Units/L (5-34); BUN/Creatinine Ratio 29 (6-26); Bilirubin,Total 0.6 mg/dL (0.2-1.2); Blood Urea Nitrogen 19 mg/dL (8-26); Calcium 6.9 mg/dL (8.6-10.8); Carbon Dioxide 22 mEq/L (19-29); Chloride 96 mEq/L (98-109); Globulin 2.7 g/dL (2.4-3.5); Glucose 113 mg/dL (70-99); Magnesium 1.7 mg/dL (1.6-2.6); Osmolality,Calculated 267 (280-300); Potassium 2.9 mEq/L (3.5-4.5); Sodium 127 mEq/L (136-145); eGFR For African Americans > 60 (> 60); eGFR For Non-African Americans > 60 (> 60)
[2016-07-30 04:30] LABS: Albumin 1.5 g/dL (3.5-5.0); Total Protein 4.2 g/dL (6.0-8.3)
[2016-07-30] MEDS: *HR* HYDROmorphone 20 MG/20 ML PCA IVC PRN ×3 (04:34→19:17)
[2016-07-30] MEDS: 0.9 % Sodium Chloride 1,000 ML IVC SCH ×2 (06:01→17:10)
[2016-07-30] MEDS: *HR* Heparin 5,000 UNIT/ML VIAL SQ SCH (06:02)
--- NOTE | 2016-07-30 06:41 | Electrocardiograph Report ---
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
[2016-07-30] MEDS: Pantoprazole 40 MG VIAL IVP SCH ×2 (06:53→18:46)
[2016-07-30] MEDS ORDERED: Calcium Gluconate 2,000 MG in D5% in Water 100 ML IVPB ONE (08:00)
[2016-07-30] MEDS ORDERED: Potassium Chloride 40 MEQ, Lidocaine 1% 2 ML in D5% in Water 500 ML IVPB ONE (08:00)
[2016-07-30] MEDS ORDERED: *HR* Promethazine 25 MG/ML VIAL IVP STA (08:04)
[2016-07-30] MEDS ORDERED: D10% in Water 500 ML IVC PRN (10:07)
[2016-07-30 14:11] LABS: Phosphorous 2.9 mg/dL (2.3-4.7)
[2016-07-30] MEDS: *HR* Enoxaparin 40 MG/0.4 ML SYRINGE SQ SCH (15:14)
[2016-07-30] MEDS ORDERED: Clinimix E 5%-15% SOLUTION 2,000 ML with MVI, adult with vitamin K 10 ML IVC SCH (17:00)
[2016-07-30] MEDS: Scopolamine Patch 1.5 MG PATCH.TD72 TD SCH (17:02)
--- NOTE | 2016-07-30 18:05 | Internal Med Progress Note ---
Date of Encounter: 07/30/16 Time of Encounter: 08:00 - Assessment and plan (1) Dehydration Current Visit: Yes Status: Acute Assessment and plan: Starting on TPN today. Continue maintainance IV fluids if able. Ice chips only for now. (2) Intractable nausea and vomiting Current Visit: Yes Status: Acute Assessment and plan: Pt with intractable nausea and vomiting. Phenergan seems to help more. Continue supportive care. Qualifiers: Vomiting type: unspecified Qualified Code(s): R11.2 - Nausea with vomiting , unspecified (3) Hyponatremia Current Visit: Yes Status: Acute Assessment and plan: Slowly improving with hydration. (4) Hypokalemia Current Visit: Yes Status: Acute Assessment and plan: Replace today. (5) Protein-calorie malnutrition, severe Current Visit: Yes Status: Acute Assessment and plan: TPN started through his port. INR too high to place PICC today. (6) Malignant ascites Current Visit: Yes Status: Chronic Assessment and plan: Paracentesis in ED. Monitoring. (7) Diarrhea Current Visit: Yes Status: Acute Assessment and plan: Most likely mucositis. Qualifiers: Diarrhea type: due to malabsorption Qualified Code(s): K90.9 - Intestinal malabsorption, unspecified; R19.7 - Diarrhea, unspecified (8) Pancreatic cancer Current Visit: Yes Status: Chronic Assessment and plan: Oncology to see. Qualifiers: Pancreatic malignancy location: unspecified Qualified Code(s): C25.9 - Malignant neoplasm of pancreas, unspecified (9) Coagulopathy Current Visit: Yes Status: Acute Assessment and plan: Most likely nutritional. Add vit K. 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 He is moderate to high risk due to persistent electrolyte abnormalities and need for continued nutrition. Dr. Sosa had a lot of vomiting yesterday but is somewhat better this AM. Pain is controlled. Wants to have liquids but I recommended ice chips. To start TPN today. Phenergan seems to help nausea. - Constitutional Vitals: Temp Pulse Resp BP Pulse Ox 97.8 F 94 16 108/78 96 07/30/16 15:39 07/30/16 15:39 07/30/16 15:39 07/30/16 15:39 07/30/16 15:39 General appearance: Present: A&O X 3, answers questions appropriately - Head Head exam: Present: normocephalic - Eye Eye exam: Present: EOMI, conjuntiva pink - ENT ENT exam: Present: mucous membranes dry - Respiratory Respiratory exam: Present: decreased breath sounds, CTAB - Cardiovascular Cardiovascular exam: Present: RRR. Absent: tachycardia - GI/Abdominal GI/Abdominal exam: Present: distended, soft. Absent: tenderness - Extremities Exam Extremities exam: Present: warm. Absent: pedal edema - Neurological Exam Neurological exam: Present: alert, oriented X3 - Psychiatric Psychiatric exam: Present: depressed - Skin Skin exam: Present: dry, warm. Absent: rash Internal Medicine: Result - Labs CBC & Chem 7: 07/30/16 04:10 07/30/16 04:10 Labs: Short CBC 07/30/16 Range/Units 04:10 WBC 5.5 (4.3-11.1) K/mcL Hgb 11.3 L (12.9-16.9) g/dL Hct 32.2 L (37.5-50.1) % Plt Count 313 (140-400) K/mcL BMP 07/30/16 04:10 Sodium 127 L Potassium 2.9 L Chloride 96 L Carbon Dioxide 22 BUN 19 Creatinine 0.65 L Glucose 113 H Calcium 6.9 L Liver Function 07/30/16 Range/Units 04:10 Total Bilirubin 0.6 (0.2-1.2) mg/dL AST 14 (5-34) Units/L ALT 15 (0-55) Units/L Alkaline Phosphatase 89 (38-126) Units/L Albumin 1.5 L D (3.5-5.0) g/dL - ABG Interpretation ABG results: PT/INR, D-dimer PT 40.1 Seconds (9.4-12.1) H 07/30/16 04:10 - Impressions Impressions KUB X-Ray 07/30/16 07:59 IMPRESSION: Nonspecific, nonobstructive bowel gas pattern. D/ / Darshan Beltran MD / Darshan Beltran MD Interpreting Provider: Darshan Beltran MD Consult Discharge Plan - Plan Referrals: Saundra Stahl MD [Primary Care Provider] - 08/08/16 2:00 pm (Please follow up as schedule..)
[2016-07-30] MEDS ORDERED: *HR* Phytonadione 5 MG TABLET PO ONE (18:10)
[2016-07-31] MEDS: *HR* HYDROmorphone 20 MG/20 ML PCA IVC PRN ×4 (03:10→22:37)
[2016-07-31] MEDS: Ondansetron 4 MG/2 ML VIAL IVP PRN ×5 (03:11→23:58)
[2016-07-31] MEDS: 0.9 % Sodium Chloride 1,000 ML IVC SCH ×2 (03:13→14:41)
[2016-07-31] MEDS: Pantoprazole 40 MG VIAL IVP SCH ×2 (05:38→18:15)
[2016-07-31] MEDS: *HR* Promethazine 25 MG/ML VIAL IVP PRN ×5 (05:38→22:28)
[2016-07-31 06:20] LABS: Hematocrit 34.6 % (37.5-50.1); Hemoglobin 11.9 g/dL (12.9-16.9); Mean Corpuscular HGB Conc 34.4 g/dL (31.6-35.5); Mean Corpuscular Hemoglobin 28.6 pg (28.0-33.3); Mean Corpuscular Volume 83.2 fL (83.0-100.0); Mean Platelet Volume 8.4 fL (9.4-12.4); Platelet Count 259 K/mcL (140-400); Red Blood Count 4.16 M/mcL (4.19-5.50); Red Cell Distribution Width 12.5 % (11.5-14.5)
[2016-07-31 06:23] LABS: INR 1.4; Prothrombin Time 14.8 Seconds (9.4-12.1)
[2016-07-31 06:31] LABS: BUN/Creatinine Ratio 27 (6-26); Blood Urea Nitrogen 14 mg/dL (8-26); Calcium 7.9 mg/dL (8.6-10.8); Carbon Dioxide 25 mEq/L (19-29); Chloride 93 mEq/L (98-109); Glucose 163 mg/dL (70-99); Magnesium 1.5 mg/dL (1.6-2.6); Osmolality,Calculated 266 (280-300); Phosphorous 1.9 mg/dL (2.3-4.7); Potassium 3.5 mEq/L (3.5-4.5); Sodium 126 mEq/L (136-145); eGFR For African Americans > 60 (> 60); eGFR For Non-African Americans > 60 (> 60)
--- NOTE | 2016-07-31 08:43 | Oncology Inp Consult Note ---
Date of Encounter: 07/30/16 Time of Encounter: 18:00 Assessment and Plan (1) Pancreatic cancer Status: Chronic Assessment and plan: 1. Metastatic pancreatic cancer with widespread liver metastasis His liver enzymes and bilirubin are normal. But INR elevated to 3.6. He just received one dose of chemotherapy Currently his nutritional status is very poor with albumin 1.5. He is not candidate for further chemotherapy at this time unless his nutrition improves Diarrhea. He claims this is from chemotherapy I proposed checking for C. difficile and stool culture but he is not interested at this time. The diarrhea is slowing down Qualifiers: Pancreatic malignancy location: unspecified Qualified Code(s): C25.9 - Malignant neoplasm of pancreas, unspecified (2) Goals of care, counseling/discussion Status: Acute Assessment and plan: He had a long discussion with Dr. Sosa and his . He understands the disease is progressing. CA-19-9 currently has on up to 4000 range. He isseverely malnourished. Also electrolyte imbalance including hypernatremia and vitamin deficiencies Discussed about doing CAT scan abdomen which is not interested. His goal is to maintain some nutrition to have some more meaningful life and he wants to go home after few days of inpatient TPN He has enough help at home. He has 3 sisters who are nurses and they are going to take care of him. His also provides 24/ care His nutritional status is poor and he will not be a candidate for chemotherapy. But we will re-address this issue when his nutritional status improved They also understand for TPN to work he should have functioning live - Data of Consult Patient: known to practice within the last 3 years Requesting Physician: Justin Benitez Primary Care Provider: Saundra Carrizales-[facility] [place] - Consult Narrative History of present illness: Diagnosis: Pancreatic adenocarcinoma stage IV with multiple liver and peritoneal metastasis diagnosis April 2016 CA 19-9 elevated at [address] Sosa was noticing some abdominal distention and discomfort since March 2016. He was evaluated by Dr. Grajeda 04/23/2016 for upper and lower abdominal pain. EGD colonoscopy was contemplated. Also CT of the abdomen and pelvis ordered which showed diffuse inflammation in the tail of the pancreas. Amylase on 03/30/16 was 72 Lipase on 04/25/16 was 69 This was followed by MRI abdomen with and without contrast 04/27/2016 showed 6.7 x 2.6 cm irregular mass in the pancreatic body and tail which abuts lesser curvature of stomach and anterior left kidney. Several indeterminate liver lesions. 3 mm nodular foci in the right pericolic gutter. 4 mm subpleural nodule right costophrenic angle He was then referred to [facility] where he had EGD and biopsy Biopsy on pancreas mass on 05/09/16 shows adenocarcinoma EGD biopsy 05/09/16 shows stomach- proton pump inhibitor-like effect and prominent lymphoid follicle Pet Scan on 05/24/16 at [facility] FDG avid lesions in the liver are worrisome for metastases. multiple hypermetabolic omental/peritoneal nodules seen scattered throughout the abdomen and pelvis are worrisome for extensive metastatic peritoneal involvement He was evaluated by Dr. Montez ROSSI and determined to be not a surgical candidate given above findings. Serum CEA elevated at 13 on 06/01/2016. CA 19-9 is elevated at 2025 06/01/2016 Right shoulder pain for which he had a CT of the shoulder on 05/08/2016 type II SLAP tear in the superior labrum On 06/23/2016 CA 19-9 mildly reduced to 1950. Constipation is his main complaint. Subsequently resolved after hospitalization and multiple stool softeners and laxatives. There is no evidence of bowel obstruction He has developed a large volume ascites. He had few paracentesis since then His pain is currently controlled on Dilaudid pain pump He was refusing chemotherapy initially but agreed to chemotherapy. Started modified FOLFIRINOX Cycle 1 on 07/16/2016. His nutritional status has declined significantly since then. His albumin has decreased from 3 range to 1.5 now. He also has electrolyte and vitamin deficiencies. 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 Past Med Surg Social Fam HX - Past Medical History Medical history: cancer Psychiatric history: ADHD - Past Surgical History Surgical History: orthopedic, other, other - Social History Smoking Status: Never smoker Smokeless Tobacco Status: No Alcohol use: rarely Drug use: none - Family History Mother Living Status: Hx Family Cardiac Disorders: Yes (HTN) Hx Family Cancer: Yes (Colon) Hx Family Endocrine Disorder: Yes (Diabetes) Father Living Status: Hx Family Cardiac Disorders: Yes (CAD, AFIB) Hx Family Endocrine Disorder: Yes (cromegaly) Medications and Allergies FentaNYL PATCH [Duragesic] 100 mcg TD Q72H #10 patch.[id number] 07/04/16 [Rx] Amlodipine Besylate 10 mg PO DAILY 07/30/16 [History] Atomoxetine HCl [Strattera] 100 mg PO DAILY 07/30/16 [History] Folic Acid 1 mg PO DAILY #30 tablet 07/30/16 [Rx] Lansoprazole [Prevacid] 30 mg PO DAILY 07/30/16 [History] Lubiprostone [Amitiza] 24 mcg PO DAILY 07/30/16 [History] Naloxone HCl [Narcan] 1 spray NS DAILY MDD 8MG 07/30/16 [History] Oxycodone HCl [Oxycodone HCl] 20 mg PO Q4H PRN 07/30/16 [History] Oxycodone HCl [Oxycontin] 40 mg PO BID PRN 07/30/16 [History] Polyethylene Glycol 3350 [MiraLAX bowel prep] 17 gm PO DAILY PRN 07/30/16 [ History] Promethazine [Phenergan] 25 mg PO Q6HR 07/30/16 [History] Allergies hydrocodone Allergy (Verified 07/30/16 10:59) Itching Iodinated Contrast Media - Oral and Allergy (Verified 07/30/16 10:59) Rash Amoxicillin [From Augmentin] Adverse Reaction (Verified 07/30/16 10:59) Gastrointestinal Upset clavulanic acid [From Augmentin] Adverse Reaction (Verified 07/30/16 10:59) Gastrointestinal Upset codeine Adverse Reaction (Verified 07/30/16 10:59) Gastrointestinal Upset morphine Adverse Reaction (Verified 07/30/16 10:59) Nausea Review of systems: Lethargic, deconditioned. Diarrhea which is improving Oncology - Exam - Constitutional Vitals: Temp Pulse Resp BP Pulse Ox 98.6 F 101 17 119/74 97 07/31/16 08:02 07/31/16 08:02 07/31/16 08:02 07/31/16 08:02 07/31/16 08:02 Exam: GENERAL: Alert , deconditioned, significant weight loss Mental Status: Affect appropriate for circumstances HEENT: Sclerae anicteric. No mucositis or thrush. No other oral or pharyngeal lesions or erythema. Skin: No rashes or petechiae. No evidence of skin malignancy Lymph nodes: No cervical, supraclavicular, axillary, or inguinal adenopathy. Lungs: Clear to auscultation and percussion bilaterally. Cardiovascular: Regular rate and rhythm. No gallops, murmurs, or rubs. Abdomen: Soft, diffuse mild tenderness. Extremities: No edema. No calf swelling or tenderness. No joint deformity. Neurologic: Alert, cranial nerves II-XII intact; normal gait; no focal weakness or sensory abnormalities. Oncology - Results - Labs Labs: Short CBC 07/31/16 Range/Units 06:10 WBC 4.9 (4.3-11.1) K/mcL Hgb 11.9 L (12.9-16.9) g/dL Hct 34.6 L (37.5-50.1) % Plt Count 259 (140-400) K/mcL BMP 07/31/16 06:10 Sodium 126 L Potassium 3.5 Chloride 93 L Carbon Dioxide 25 BUN 14 Creatinine 0.52 L Glucose 163 H Calcium 7.9 L Consult Discharge Plan - Plan Referrals: Saundra Stahl MD [Primary Care Provider] - 08/08/16 2:00 pm (Please follow up as schedule..)
[2016-07-31] MEDS: *HR* FentaNYL PATCH 100 MCG PATCH TD SCH (09:24)
[2016-07-31] MEDS ORDERED: Magnesium Sulfate 1 GM in D5% in Water 100 ML IVPB ONE (10:00)
--- NOTE | 2016-07-31 11:10 | Internal Med Progress Note ---
Date of Encounter: 07/31/16 Time of Encounter: 11:08 - Assessment and plan (1) Pancreatic cancer Current Visit: Yes Status: Chronic Assessment and plan: Ascites likely malignancy related Paracentesis today Oncology following the case not ready for hospice. Oncology will not schedule more chemo due to poor nutritional status Qualifiers: Pancreatic malignancy location: unspecified Qualified Code(s): C25.9 - Malignant neoplasm of pancreas, unspecified (2) Hypomagnesemia Current Visit: Yes Status: Acute Assessment and plan: Replete as needed (3) Abdominal pain Current Visit: Yes Status: Chronic Assessment and plan: Secondary to metastatic adenocarcinoma of the pancreas Qualifiers: Abdominal location: generalized Qualified Code(s): R10.84 - Generalized abdominal pain (4) Hyponatremia Current Visit: Yes Status: Acute Assessment and plan: Slowly improving with hydration. (5) Hypokalemia Current Visit: Yes Status: Acute Assessment and plan: repleted (6) Protein-calorie malnutrition, severe Current Visit: Yes Status: Acute Assessment and plan: TPN started through his port. PICC today. (7) Coagulopathy Current Visit: Yes Status: Acute Assessment and plan: Most likely nutritional. Added vit K. INR 1.4 , resolved - Time Spent With Patient Greater than 35 minutes - Subjective Interval history: Complaints of abdominal pain, distention, has mild shortness of breath, no chest pain. No dysuria, no fevers - Constitutional Vitals: Temp Pulse Resp BP Pulse Ox 98.6 F 101 17 119/74 97 07/31/16 08:02 07/31/16 08:02 07/31/16 08:02 07/31/16 08:02 07/31/16 08:02 General appearance: Present: A&O X 3, answers questions appropriately - Head Head exam: Present: atraumatic, normocephalic - Eye Eye exam: Present: PERRL, conjuntiva pink, sclera anicteric Pupils: Present: PERRL - Neck Neck exam general surgery: Present: supple, trachea midline. Absent: lymphadenopathy - Respiratory Respiratory exam: Present: decreased breath sounds, CTAB. Absent: accessory muscle use, rales, rhonchi, wheezes - Cardiovascular Cardiovascular exam: Present: RRR, +S1, +S2. Absent: diastolic murmur, gallop, rubs, systolic murmur - GI/Abdominal GI/Abdominal exam: Present: distended (Ascites present), normal bowel sounds, soft, no peritoneal signs. Absent: tenderness - Extremities Exam Extremities exam: Present: warm, radial pulses palpable and symetrical. Absent : calf tenderness, cyanotic, pedal edema - Neurological Exam Neurological exam: Present: CN II-XII intact, oriented X3, no focal deficits. Absent: pronater drift, facial droop, speech deficit - Skin Skin exam: Present: dry, intact Internal Medicine: Result - Labs CBC & Chem 7: 07/31/16 06:10 07/31/16 06:10 Labs: Short CBC 07/31/16 Range/Units 06:10 WBC 4.9 (4.3-11.1) K/mcL Hgb 11.9 L (12.9-16.9) g/dL Hct 34.6 L (37.5-50.1) % Plt Count 259 (140-400) K/mcL BMP 07/31/16 06:10 Sodium 126 L Potassium 3.5 Chloride 93 L Carbon Dioxide 25 BUN 14 Creatinine 0.52 L Glucose 163 H Calcium 7.9 L - ABG Interpretation ABG results: PT/INR, D-dimer PT 14.8 Seconds (9.4-12.1) H D 07/31/16 06:10 Consult Discharge Plan - Plan Referrals: Saundra Stahl MD [Primary Care Provider] - 08/08/16 2:00 pm (Please follow up as schedule..)
[2016-07-31] MEDS: *HR* Enoxaparin 40 MG/0.4 ML SYRINGE SQ SCH (11:26)
[2016-07-31] MEDS ORDERED: Clinimix E 5%-15% SOLUTION 2,000 ML with MVI, adult with vitamin K 10 ML IVC SCH (17:00)
[2016-07-31] MEDS ORDERED: Metoclopramide 10 MG/2 ML VIAL IVP PRN (20:52)
[2016-08-01] MEDS: *HR* Promethazine 25 MG/ML VIAL IVP PRN ×5 (02:41→19:50)
[2016-08-01] MEDS: Ondansetron 4 MG/2 ML VIAL IVP PRN ×3 (04:18→17:47)
[2016-08-01] MEDS: Pantoprazole 40 MG VIAL IVP SCH ×2 (05:50→17:47)
[2016-08-01 06:10] LABS: BUN/Creatinine Ratio 27 (6-26); Blood Urea Nitrogen 14 mg/dL (8-26); Calcium 7.7 mg/dL (8.6-10.8); Carbon Dioxide 23 mEq/L (19-29); Chloride 93 mEq/L (98-109); Glucose 194 mg/dL (70-99); Magnesium 1.5 mg/dL (1.6-2.6); Osmolality,Calculated 268 (280-300); Potassium 3.7 mEq/L (3.5-4.5); Sodium 126 mEq/L (136-145); eGFR For African Americans > 60 (> 60); eGFR For Non-African Americans > 60 (> 60)
[2016-08-01 06:13] LABS: Phosphorous 2.9 mg/dL (2.3-4.7)
[2016-08-01] MEDS: 0.9 % Sodium Chloride 1,000 ML IVC SCH ×3 (07:39→17:46)
--- NOTE | 2016-08-01 07:50 | Internal Med Progress Note ---
Date of Encounter: 08/01/16 Time of Encounter: 07:47 - Assessment and plan (1) Pancreatic cancer Current Visit: Yes Status: Chronic Assessment and plan: Ascites likely malignancy related Paracentesis on 07/31/16 2.8 Lt removed Oncology following the case not ready for hospice. Oncology will not schedule more chemo due to poor nutritional status Qualifiers: Pancreatic malignancy location: unspecified Qualified Code(s): C25.9 - Malignant neoplasm of pancreas, unspecified (2) Hypomagnesemia Current Visit: Yes Status: Acute Assessment and plan: Replete as needed (3) Abdominal pain Current Visit: Yes Status: Chronic Assessment and plan: Secondary to metastatic adenocarcinoma of the pancreas Qualifiers: Abdominal location: generalized Qualified Code(s): R10.84 - Generalized abdominal pain (4) Hyponatremia Current Visit: Yes Status: Acute Assessment and plan: Not improving may try NaCl tablets . (5) Hypokalemia Current Visit: Yes Status: Acute Assessment and plan: repleted (6) Protein-calorie malnutrition, severe Current Visit: Yes Status: Acute Assessment and plan: TPN started through his port. PICC today. (7) Coagulopathy Current Visit: Yes Status: Acute Assessment and plan: Most likely nutritional. Added vit K. INR 1.4 , resolved (8) Nausea & vomiting Current Visit: Yes Status: Acute Assessment and plan: on phenergan , tried zofran and reglan without good effect scopolamine patch considered add dexamethasone ( may increase dose) Qualifiers: Vomiting type: unspecified Vomiting Intractability: intractable Qualified Code(s): R11.2 - Nausea with vomiting, unspecified - Subjective Interval history: Complaints of constant nausea and abdominal pain, distention, has mild shortness of breath, no chest pain. No dysuria, no fevers - Constitutional Vitals: Temp Pulse Resp BP Pulse Ox 98.4 F 109 19 108/72 98 08/01/16 07:34 08/01/16 07:34 08/01/16 07:34 08/01/16 07:34 08/01/16 07:34 General appearance: Present: cachectic, A&O X 3, answers questions appropriately - Head Head exam: Present: atraumatic, normocephalic - Eye Eye exam: Present: PERRL, conjuntiva pink, sclera anicteric Pupils: Present: PERRL - Neck Neck exam general surgery: Present: supple, trachea midline. Absent: lymphadenopathy - Respiratory Respiratory exam: Present: CTAB. Absent: accessory muscle use, rales, rhonchi, wheezes - Cardiovascular Cardiovascular exam: Present: RRR, +S1, +S2. Absent: diastolic murmur, gallop, rubs, systolic murmur - GI/Abdominal GI/Abdominal exam: Present: diminished bowel sounds, distended (Ascites noticeable), normal bowel sounds, soft, no peritoneal signs. Absent: tenderness - Extremities Exam Extremities exam: Present: warm, radial pulses palpable and symetrical. Absent : calf tenderness, cyanotic, pedal edema - Neurological Exam Neurological exam: Present: CN II-XII intact, oriented X3, no focal deficits. Absent: pronater drift, facial droop, speech deficit - Skin Skin exam: Present: dry, intact Internal Medicine: Result - Labs CBC & Chem 7: 07/31/16 06:10 08/01/16 05:55 Labs: BMP 08/01/16 05:55 Sodium 126 L Potassium 3.7 Chloride 93 L Carbon Dioxide 23 BUN 14 Creatinine 0.52 L Glucose 194 H Calcium 7.7 L - ABG Interpretation ABG results: PT/INR, D-dimer PT 14.8 Seconds (9.4-12.1) H D 07/31/16 06:10 - Impressions Impressions Paracentesis Ultrasound 07/31/16 00:00 IMPRESSION: Successful ultrasound guided paracentesis. D/ / Alex Hernández MD / Alex Hernández MD Interpreting Provider: Alex Hernández MD Consult Discharge Plan - Plan Referrals: Saundra Stahl MD [Primary Care Provider] - 08/08/16 2:00 pm (Please follow up as schedule..)
[2016-08-01] MEDS: *HR* HYDROmorphone 20 MG/20 ML PCA IVC PRN ×3 (07:56→21:12)
[2016-08-01] MEDS: Dexamethasone 4 MG/ML VIAL IVP SCH ×2 (08:00→21:11)
[2016-08-01] MEDS: Magnesium Oxide 400 MG TABLET PO SCH ×3 (08:01→21:38)
[2016-08-01] MEDS: *HR* Enoxaparin 40 MG/0.4 ML SYRINGE SQ SCH (14:13)
[2016-08-01] MEDS ORDERED: Clinimix E 5%-15% SOLUTION 2,000 ML with MVI, adult with vitamin K 10 ML IVC SCH (17:00)
[2016-08-02] MEDS: *HR* Promethazine 25 MG/ML VIAL IVP PRN ×6 (00:05→20:11)
[2016-08-02] MEDS: 0.9 % Sodium Chloride 1,000 ML IVC SCH (04:05)
[2016-08-02 05:28] LABS: BUN/Creatinine Ratio 29 (6-26); Blood Urea Nitrogen 15 mg/dL (8-26); Calcium 7.7 mg/dL (8.6-10.8); Carbon Dioxide 25 mEq/L (19-29); Chloride 93 mEq/L (98-109); Glucose 212 mg/dL (70-99); Magnesium 1.6 mg/dL (1.6-2.6); Osmolality,Calculated 271 (280-300); Phosphorous 3.1 mg/dL (2.3-4.7); Potassium 3.9 mEq/L (3.5-4.5); Sodium 127 mEq/L (136-145); eGFR For African Americans > 60 (> 60); eGFR For Non-African Americans > 60 (> 60)
[2016-08-02] MEDS: Pantoprazole 40 MG VIAL IVP SCH ×2 (07:16→17:34)
[2016-08-02] MEDS: Magnesium Oxide 400 MG TABLET PO SCH ×2 (08:14→20:11)
[2016-08-02] MEDS: Dexamethasone 4 MG/ML VIAL IVP SCH ×3 (08:14→19:09)
[2016-08-02] MEDS: Scopolamine Patch 1.5 MG PATCH.TD72 TD SCH (08:15)
[2016-08-02] MEDS: Ondansetron 4 MG/2 ML VIAL IVP PRN ×3 (10:16→22:20)
[2016-08-02] MEDS ORDERED: Lidocaine -MPF 1% 5 ML AMPUL INFILT ONE (12:01)
--- NOTE | 2016-08-02 13:20 | Internal Med Progress Note ---
Date of Encounter: 08/01/16 Time of Encounter: 13:18 - Assessment and plan (1) Pancreatic cancer Current Visit: Yes Status: Chronic Assessment and plan: Ascites likely malignancy related Paracentesis on 07/31/16 2.8 Lt removed The patient agreed to hac a pleurex catheter placed, consult interventional radiology re check INR Oncology following the case not ready for hospice. Oncology will not schedule more chemo due to poor nutritional status Qualifiers: Pancreatic malignancy location: unspecified Qualified Code(s): C25.9 - Malignant neoplasm of pancreas, unspecified (2) Hypomagnesemia Current Visit: Yes Status: Acute Assessment and plan: Repleted (3) Abdominal pain Current Visit: Yes Status: Chronic Assessment and plan: Secondary to metastatic adenocarcinoma of the pancreas Qualifiers: Abdominal location: generalized Qualified Code(s): R10.84 - Generalized abdominal pain (4) Hyponatremia Current Visit: Yes Status: Acute Assessment and plan: Not improving urine sodium and osmolality may try NaCl tablets . (5) Hypokalemia Current Visit: Yes Status: Acute Assessment and plan: repleted (6) Protein-calorie malnutrition, severe Current Visit: Yes Status: Acute Assessment and plan: TPN started the patient has a port PICC placed (7) Coagulopathy Current Visit: Yes Status: Acute Assessment and plan: Most likely nutritional. Added vit K. INR 1.4 , resolved (8) Nausea & vomiting Current Visit: Yes Status: Acute Assessment and plan: on phenergan , tried zofran and reglan without good effect scopolamine patch considered Increase dose of dexamethasone to 4 mg QID Qualifiers: Vomiting type: unspecified Vomiting Intractability: intractable Qualified Code(s): R11.2 - Nausea with vomiting, unspecified - Time Spent With Patient Greater than 35 minutes - Subjective Interval history: Nausea and vomiting is still not properly controlled, complaints of constant abdominal pain, distention, has mild shortness of breath, no chest pain. No dysuria, no fevers - Constitutional Vitals: Temp Pulse Resp BP Pulse Ox 97.5 F L 97 16 120/75 98 08/02/16 12:16 08/02/16 12:16 08/02/16 12:16 08/02/16 12:16 08/02/16 12:16 General appearance: Present: cachectic, A&O X 3, answers questions appropriately - Head Head exam: Present: atraumatic, normocephalic - Eye Eye exam: Present: PERRL, conjuntiva pink, sclera anicteric Pupils: Present: PERRL - Neck Neck exam general surgery: Present: supple, trachea midline. Absent: lymphadenopathy - Respiratory Respiratory exam: Present: CTAB. Absent: accessory muscle use, rales, rhonchi, wheezes - Cardiovascular Cardiovascular exam: Present: RRR, +S1, +S2. Absent: diastolic murmur, gallop, rubs, systolic murmur - GI/Abdominal GI/Abdominal exam: Present: distended (Ascites noticed), normal bowel sounds, soft, no peritoneal signs. Absent: tenderness - Extremities Exam Extremities exam: Present: warm, radial pulses palpable and symetrical. Absent : calf tenderness, cyanotic, pedal edema - Neurological Exam Neurological exam: Present: CN II-XII intact, oriented X3, no focal deficits. Absent: pronater drift, facial droop, speech deficit - Skin Skin exam: Present: dry, intact Internal Medicine: Result - Labs CBC & Chem 7: 07/31/16 06:10 08/02/16 05:07 Labs: BMP 08/02/16 05:07 Sodium 127 L Potassium 3.9 Chloride 93 L Carbon Dioxide 25 BUN 15 Creatinine 0.51 L Glucose 212 H Calcium 7.7 L - ABG Interpretation ABG results: PT/INR, D-dimer PT 14.8 Seconds (9.4-12.1) H D 07/31/16 06:10 Consult Discharge Plan - Plan Referrals: Saundra Stahl MD [Primary Care Provider] - 08/08/16 2:00 pm (Please follow up as schedule..)
[2016-08-02] MEDS: *HR* Enoxaparin 40 MG/0.4 ML SYRINGE SQ SCH (14:05)
[2016-08-02 15:31] LABS: Osmolality,Urine 584 mOsm/kg (300-1090)
[2016-08-02 16:26] LABS: Sodium, Urine < 20.0 mEq/L
[2016-08-02] MEDS ORDERED: Clinimix E 5%-15% SOLUTION 2,000 ML with MVI, adult with vitamin K 10 ML, Insulin Hum... IVC SCH (17:00)
[2016-08-03] MEDS: *HR* Promethazine 25 MG/ML VIAL IVP PRN ×6 (00:07→21:45)
[2016-08-03] MEDS: Dexamethasone 4 MG/ML VIAL IVP SCH ×4 (01:00→21:47)
[2016-08-03] MEDS: *HR* HYDROmorphone 20 MG/20 ML PCA IVC PRN ×4 (02:50→19:23)
[2016-08-03 04:54] LABS: Hematocrit 31.4 % (37.5-50.1); Mean Corpuscular Hemoglobin 29.3 pg (28.0-33.3); Mean Corpuscular Volume 83.7 fL (83.0-100.0); Mean Platelet Volume 8.9 fL (9.4-12.4); Platelet Count 170 K/mcL (140-400); Red Blood Count 3.75 M/mcL (4.19-5.50); Red Cell Distribution Width 13.2 % (11.5-14.5)
[2016-08-03 04:58] LABS: INR 1.2; Prothrombin Time 12.5 Seconds (9.4-12.1)
[2016-08-03 05:20] LABS: BUN/Creatinine Ratio 26 (6-26); Blood Urea Nitrogen 14 mg/dL (8-26); Calcium 7.7 mg/dL (8.6-10.8); Carbon Dioxide 26 mEq/L (19-29); Chloride 94 mEq/L (98-109); Glucose 234 mg/dL (70-99); Magnesium 1.8 mg/dL (1.6-2.6); Osmolality,Calculated 274 (280-300); Phosphorous 2.9 mg/dL (2.3-4.7); Sodium 128 mEq/L (136-145); Triglycerides 140 mg/dL (< 150); eGFR For African Americans > 60 (> 60); eGFR For Non-African Americans > 60 (> 60)
[2016-08-03] MEDS: Pantoprazole 40 MG VIAL IVP SCH ×2 (06:00→17:07)
[2016-08-03] MEDS ORDERED: 0.9 % Sodium Chloride 500 ML ONE ×2 (07:46→13:28)
[2016-08-03] MEDS: *HR* FentaNYL PATCH 100 MCG PATCH TD SCH (08:10)
[2016-08-03] MEDS: Magnesium Oxide 400 MG TABLET PO SCH ×2 (08:15→22:01)
--- NOTE | 2016-08-03 12:47 | Discharge Summary ---
Date of Encounter: 08/01/16 Time of Encounter: 12:36 - Discharge Diagnosis (1) Pancreatic cancer Priority: Primary Status: Chronic Comments: Ascites likely malignancy related Qualifiers: Pancreatic malignancy location: unspecified Qualified Code(s): C25.9 - Malignant neoplasm of pancreas, unspecified (2) Hypomagnesemia Priority: Secondary Status: Acute (3) Abdominal pain Priority: Primary Status: Chronic Comments: Secondary to metastatic adenocarcinoma of the pancreas Qualifiers: Abdominal location: generalized Qualified Code(s): R10.84 - Generalized abdominal pain (4) Hyponatremia Priority: Secondary Status: Acute Comments: secondary to poor oral intake. SIADH rule out (5) Hypokalemia Priority: Secondary Status: Acute (6) Protein-calorie malnutrition, severe Priority: Secondary Status: Acute Comments: TPN started the patient has a port and a PICC line PICC placed (7) Coagulopathy Priority: Secondary Status: Acute Comments: due to vitamin K deficiency (8) Nausea & vomiting Priority: Secondary Status: Acute Comments: Dehydration secondary to intractable nausea and vomiting Qualifiers: Vomiting type: unspecified Vomiting Intractability: intractable Qualified Code(s): R11.2 - Nausea with vomiting, unspecified - Discharge Medications Prescriptions: Promethazine [Phenergan] 25 mg IVP Q4HR PRN #40 vial PRN Reason: Nausea And Vomiting Dexamethasone [Decadron] 4 mg IVP Q6H #50 vial FentaNYL PATCH [Duragesic] 100 mcg TD Q72H #10 patch.td72 Magnesium Oxide [Mag-Ox] 400 mg PO DAILY #30 tablet Scopolamine Patch [Transderm-Scop] 1.5 mg TD Q72H #10 patch.td72 Home Medications: Amlodipine Besylate 10 mg PO DAILY 07/30/16 [History] Atomoxetine HCl [Strattera] 100 mg PO DAILY 07/30/16 [History] Folic Acid 1 mg PO DAILY #30 tablet 07/30/16 [Rx] Lansoprazole [Prevacid] 30 mg PO DAILY 07/30/16 [History] Lubiprostone [Amitiza] 24 mcg PO DAILY 07/30/16 [History] Naloxone HCl [Narcan] 1 spray NS DAILY MDD 8MG 07/30/16 [History] Oxycodone HCl 20 mg PO Q4H PRN 07/30/16 [History] Oxycodone HCl [Oxycontin] 40 mg PO BID PRN 07/30/16 [History] Polyethylene Glycol 3350 [MiraLAX bowel prep] 17 gm PO DAILY PRN 07/30/16 [ History] Promethazine [Phenergan] 25 mg PO Q6HR 07/30/16 [History] Dexamethasone [Decadron] 4 mg IVP Q6H #50 vial 08/03/16 [Rx] FentaNYL PATCH [Duragesic] 100 mcg TD Q72H #10 patch.td72 08/03/16 [Rx] HYDROmorphone 20 MG/20 ML SECOND FLOOR OPERATOR [Dilaudid 20 MG/20 ML SECOND FLOOR OPERATOR] 1 each IVC PROTOCOL PRN #0 radial router operator.vial 08/03/16 [Rx] Magnesium Oxide [Mag-Ox] 400 mg PO DAILY #30 tablet 08/03/16 [Rx] Promethazine [Phenergan] 25 mg IVP Q4HR PRN #40 vial 08/03/16 [Rx] Scopolamine Patch [Transderm-Scop] 1.5 mg TD Q72H #10 patch.td72 08/03/16 [Rx] Allergies/Adverse Reactions: Allergies hydrocodone Allergy (Verified 07/30/16 10:59) Itching Iodinated Contrast Media - Oral and Allergy (Verified 07/30/16 10:59) Rash Amoxicillin [From Augmentin] Adverse Reaction (Verified 07/30/16 10:59) Gastrointestinal Upset clavulanic acid [From Augmentin] Adverse Reaction (Verified 07/30/16 10:59) Gastrointestinal Upset codeine Adverse Reaction (Verified 07/30/16 10:59) Gastrointestinal Upset morphine Adverse Reaction (Verified 07/30/16 10:59) Nausea Procedures/tests Complete & Pending: Procedures Performed prior 72 hours Category Date Time Status IR drain abd/retro w cath [IR] Routine Exams 08/03/16 Ordered IR us guide needle place [IR] Routine IR 08/03/16 Ordered Date of admission: 07/28/16 23:25 Primary care physician: Saundra [facility] Consults: 07/29/16 08:29 dietary consult [Consult to Nutrition] [CONS] Routine Comment: Starting TPN Consulting Provider: NUTRITION Reason for Dietary Consult: TPN Start and Manage 07/29/16 11:52 Consult to PICC team [Consult to Invasive Line Access Team] [CONS] Routine Reason for Consult: PICC for TPN Line Type: PICC PICC line indications: Parental nutrition 07/30/16 12:45 Consult to Invasive Line Access Team [CONS] Routine Reason for Consult: limited vascular access Line Type: EPIV 07/30/16 14:35 Consult to Oncology Hematology [CONS] Routine Consulting Provider: Cristina Do Reason for Consult: Pancreatic cancer Call Completed: Yes 08/02/16 12:01 Consult to Invasive Line Access Team [CONS] Routine Reason for Consult: Picc Line Insertion Line Type: PICC 08/02/16 13:11 Consult to Interventional Radiology [CONS] Routine Consulting Provider: Radiology Interventional Cols Reason for Consult: pleurex catheter placemtn for recurrentparacentesis Call Completed: No 08/03/16 10:00 Consult to Interventional Radiology [CONS] Routine Consulting Provider: Radiology Interventional Cols Reason for Consult: pleurex catheter placement, for recurrent paracentesis Call Completed: No - Patient Status Disposition: Home Health Service Condition: Serious Overall status at discharge: other (poor prognosis) - Discharge Instructions Follow Up With: Saundra Stahl MD [Primary Care Provider] - 08/08/16 2:00 pm (Please follow up as schedule..) Additional Instructions: Continue Dilaudid pump, fentanyl patch. Continue IV dexamethasone 4 mg every 6 hours and Phenergan when necessary to control nausea. TPN for nutritional service recommendations. Pleurx catheter management for ascites draining as needed. Increase salt intake - Diet and Activity Activity: increase activity as tolerated Diet: low fat, low cholesterol Hospital course: Mr. Sosa is a 46 year old male who was noticing some abdominal distention and discomfort since March 2016. He was evaluated by Dr. Grajeda on 04/23/2016 for upper and lower abdominal pain. Also CT of the abdomen and pelvis ordered which showed diffuse inflammation in the tail of the pancreas concerning for pancreatitis. Amylase on 03/30/16 was 72 Lipase on 04/25/16 was 69 This was followed by MRI abdomen with and without contrast 04/27/2016 showed 6.7 x 2.6 cm irregular mass in the pancreatic body and tail which abuts lesser curvature of stomach and anterior left kidney. Several indeterminate liver lesions. 3 mm nodular foci in the right pericolic gutter. 4 mm subpleural nodule right costophrenic angle He was then referred to [facility] where he had EGD and biopsy Biopsy on pancreas mass on 05/09/16 showed adenocarcinoma EGD biopsy 05/09/16 showed stomach- proton pump inhibitor-like effect and prominent lymphoid follicle Pet Scan on 05/24/16 at [facility] FDG avid lesions in the liver are worrisome for metastases. multiple hypermetabolic omental/peritoneal nodules seen scattered throughout the abdomen and pelvis are worrisome for extensive metastatic peritoneal involvement He was evaluated by Dr. Herrmann [facility] and determined to be not a surgical candidate given above findings. Serum CEA elevated at 13 on 06/01/2016. CA 19-9 is elevated at 20206/01/2016 Right shoulder pain for which he had a CT of the shoulder on 05/08/2016 type II SLAP tear in the superior labrum On 06/23/2016 CA 19-9 mildly reduced to 1950. Constipation is his main complaint. Subsequently resolved after hospitalization and multiple stool softeners and laxatives. There is no evidence of bowel obstruction He has developed a large volume ascites. He had few paracentesis since then Pain controlled on Dilaudid pain pump ( large dose) 2 mg per hour at home with 0.8 mg q10 min PRN boluses. He was refusing chemotherapy initially but agreed to chemotherapy. Started modified FOLFIRINOX Cycle 1 on 07/16/2016. His nutritional status has declined significantly since then. His albumin has decreased from 3 range to 1.5 now. He also has electrolyte and vitamin deficiencies. His been hospitalized for TPN Was admitted to the hospital, had a Paracentesis on 07/31/16 with 2.8 Lt removed The patient agreed to have a pleurex catheter placed by interventional radiology. Not ready for hospice but whishes to be a DNR cc Arrest , accepts intubation only for 3 days. Oncology will not schedule more chemo due to poor nutritional status - Time Spent with Patient Total time spent providing and/or coordinating discharge services: Greater than 30 minutes (40 min) - Constitutional Vitals: Temp Pulse Resp BP Pulse Ox 97.3 F L 98 16 131/87 94 08/03/16 11:04 08/03/16 11:04 08/03/16 11:04 08/03/16 11:04 08/03/16 11:04 General appearance: Present: cachectic, A&O X 3, answers questions appropriately - Head Head exam: Present: atraumatic, normocephalic - Eye Eye exam: Present: PERRL, conjuntiva pink, sclera anicteric Pupils: Present: PERRL - Neck Neck exam general surgery: Present: supple, trachea midline. Absent: lymphadenopathy - Respiratory Respiratory exam: Present: CTAB. Absent: accessory muscle use, rales, rhonchi, wheezes - Cardiovascular Cardiovascular exam: Present: RRR, +S1, +S2. Absent: diastolic murmur, gallop, rubs, systolic murmur - GI/Abdominal GI/Abdominal exam: Present: distended (Ascites noticed), normal bowel sounds, soft, no peritoneal signs. Absent: tenderness - Extremities Exam Extremities exam: Present: warm, radial pulses palpable and symetrical. Absent : calf tenderness, cyanotic, pedal edema - Neurological Exam Neurological exam: Present: CN II-XII intact, oriented X3, no focal deficits. Absent: pronater drift, facial droop, speech deficit Additional comments: Chest port in place, PICC line in place - Skin Skin exam: Present: dry, intact
--- NOTE | 2016-08-03 13:04 | Physician Discharge Referral ---
Home Health/Hosp Referral Info Transfer to: Home Health Provider in Charge Post Discharge: PCP - Diagnosis (1) Pancreatic cancer Status: Chronic (2) Hypomagnesemia Status: Acute (3) Abdominal pain Status: Chronic (4) Hyponatremia Status: Acute (5) Hypokalemia Status: Acute (6) Protein-calorie malnutrition, severe Status: Acute (7) Coagulopathy Status: Acute (8) Nausea & vomiting Status: Acute - Respiratory Orders Smoking Cessation: Smoking cessation has been advised. For more information, call the [place] Tobacco Quit Line at 7-157-HMMP-NOW. - Diet/Nutrition Diet/Nutrition Orders: Regular - Services Needed Following services are medically necessary services: Nursing, Home Health Aide Home Care Orders: Continue Dilaudid pump, fentanyl patch. Continue IV dexamethasone 4 mg every 6 hours and Phenergan when necessary to control nausea. TPN for nutritional service recommendations. Pleurx catheter management for ascites draining as needed. Increase salt intake - Transfer Medications Prescriptions: Promethazine [Phenergan] 25 mg IVP Q4HR PRN #40 vial PRN Reason: Nausea And Vomiting Dexamethasone [Decadron] 4 mg IVP Q6H #50 vial FentaNYL PATCH [Duragesic] 100 mcg TD Q72H #10 patch.td72 Magnesium Oxide [Mag-Ox] 400 mg PO DAILY #30 tablet Scopolamine Patch [Transderm-Scop] 1.5 mg TD Q72H #10 patch.td72 Home Medications: Amlodipine Besylate 10 mg PO DAILY 07/30/16 [History] Atomoxetine HCl [Strattera] 100 mg PO DAILY 07/30/16 [History] Folic Acid 1 mg PO DAILY #30 tablet 07/30/16 [Rx] Lansoprazole [Prevacid] 30 mg PO DAILY 07/30/16 [History] Lubiprostone [Amitiza] 24 mcg PO DAILY 07/30/16 [History] Naloxone HCl [Narcan] 1 spray NS DAILY MDD 8MG 07/30/16 [History] Oxycodone HCl 20 mg PO Q4H PRN 07/30/16 [History] Oxycodone HCl [Oxycontin] 40 mg PO BID PRN 07/30/16 [History] Polyethylene Glycol 3350 [MiraLAX bowel prep] 17 gm PO DAILY PRN 07/30/16 [ History] Promethazine [Phenergan] 25 mg PO Q6HR 07/30/16 [History] Dexamethasone [Decadron] 4 mg IVP Q6H #50 vial 08/03/16 [Rx] FentaNYL PATCH [Duragesic] 100 mcg TD Q72H #10 patch.td72 08/03/16 [Rx] HYDROmorphone 20 MG/20 ML TIMBER FRAMER [Dilaudid 20 MG/20 ML TIMBER FRAMER] 1 each IVC PROTOCOL PRN #0 echo technologist.vial 08/03/16 [Rx] Magnesium Oxide [Mag-Ox] 400 mg PO DAILY #30 tablet 08/03/16 [Rx] Promethazine [Phenergan] 25 mg IVP Q4HR PRN #40 vial 08/03/16 [Rx] Scopolamine Patch [Transderm-Scop] 1.5 mg TD Q72H #10 patch.td72 08/03/16 [Rx] Allergies/Adverse Reactions: Allergies hydrocodone Allergy (Verified 07/30/16 10:59) Itching Iodinated Contrast Media - Oral and Allergy (Verified 07/30/16 10:59) Rash Amoxicillin [From Augmentin] Adverse Reaction (Verified 07/30/16 10:59) Gastrointestinal Upset clavulanic acid [From Augmentin] Adverse Reaction (Verified 07/30/16 10:59) Gastrointestinal Upset codeine Adverse Reaction (Verified 07/30/16 10:59) Gastrointestinal Upset morphine Adverse Reaction (Verified 07/30/16 10:59) Nausea Certification: Further, I certify that my clinical findings support that this patient is homebound (i.e. absences from home require considerable and taxing effort and are for medical reasons or jainism services or infrequently or short duration when for other reasons) because: Homebound Reason: Patient requires assistance of a person or device to safely leave home Attestation: My signature below is to certify that this patient is under my care and that I, or nurse practitioner, or a physician's vet assistant working with me, has a face-to -face encounter with this patient.
[2016-08-03] MEDS ORDERED: *HR* HYDROmorphone (PF) 1 MG/ML SYRINGE IVP ONE (13:26)
[2016-08-03] MEDS ORDERED: *HR* Midazolam HCl 2 MG/2 ML VIAL IVP PRN (13:27)
[2016-08-03] MEDS ORDERED: *HR* HYDROmorphone 2 MG/ML SYRINGE ONE (13:36)
[2016-08-03 15:32] LABS: Hematocrit 32.1 % (37.5-50.1); Hemoglobin 10.9 g/dL (12.9-16.9); Mean Corpuscular Hemoglobin 28.9 pg (28.0-33.3); Mean Corpuscular Volume 85.1 fL (83.0-100.0); Mean Platelet Volume 8.7 fL (9.4-12.4); Neutrophils # 7.1 K/mcL (1.6-8.9); Platelet Count 165 K/mcL (140-400); Red Blood Count 3.77 M/mcL (4.19-5.50); Red Cell Distribution Width 13.1 % (11.5-14.5)
[2016-08-03] MEDS: *HR* Enoxaparin 40 MG/0.4 ML SYRINGE SQ SCH (15:38)
[2016-08-03 15:52] LABS: Lymphocytes # 0.6 K/mcL (0.6-4.6); Monocytes # 0.9 K/mcL (0.0-1.3); Platelet Estimate Normal (Normal)
[2016-08-03] MEDS ORDERED: Clinimix E 5%-15% SOLUTION 2,000 ML with MVI, adult with vitamin K 10 ML, Insulin Hum... IVC SCH (17:00)
[2016-08-04] MEDS: Dexamethasone 4 MG/ML VIAL IVP SCH ×3 (01:53→13:23)
[2016-08-04] MEDS: *HR* HYDROmorphone 20 MG/20 ML PCA IVC PRN ×2 (01:53→07:53)
[2016-08-04] MEDS: *HR* Promethazine 25 MG/ML VIAL IVP PRN ×3 (01:54→09:45)
[2016-08-04] MEDS: Ondansetron 4 MG/2 ML VIAL IVP PRN (04:04)
[2016-08-04 04:42] VITALS: BP 108/66
[2016-08-04] MEDS: Pantoprazole 40 MG VIAL IVP SCH (05:57)
[2016-08-04] MEDS: Magnesium Oxide 400 MG TABLET PO SCH (07:51)
--- NOTE | 2016-08-04 09:14 | Internal Med Progress Note ---
Date of Encounter: 08/04/16 Time of Encounter: 09:12 - Assessment and plan (1) Pancreatic cancer Current Visit: Yes Status: Chronic Assessment and plan: Ascites likely malignancy related Paracentesis on 07/31/16 2.8 Lt removed pleurex catheter placed by interventional radiology Oncology following the case not ready for hospice. Oncology will not schedule more chemo due to poor nutritional status The patient will be discharged later today. Continue insulin sliding scale every 6 hours with insulin lispro: 2 Units if glucose 150-199, 4 units if 200-249, 6 units if 250-299, 8 units if 300-349, 10 units if 350-399, 12 units if more than 400 Phenergan IV will be prescribed. Drain pleurex catheter as needed Qualifiers: Pancreatic malignancy location: unspecified Qualified Code(s): C25.9 - Malignant neoplasm of pancreas, unspecified (2) Hypomagnesemia Current Visit: Yes Status: Acute Assessment and plan: Repleted (3) Abdominal pain Current Visit: Yes Status: Chronic Assessment and plan: Secondary to metastatic adenocarcinoma of the pancreas Qualifiers: Abdominal location: generalized Qualified Code(s): R10.84 - Generalized abdominal pain (4) Hyponatremia Current Visit: Yes Status: Acute Assessment and plan: Not improving urine sodium and osmolality may try NaCl tablets . (5) Hypokalemia Current Visit: Yes Status: Acute Assessment and plan: repleted (6) Protein-calorie malnutrition, severe Current Visit: Yes Status: Acute Assessment and plan: TPN started the patient has a port PICC placed (7) Coagulopathy Current Visit: Yes Status: Acute Assessment and plan: Most likely nutritional. Added vit K. INR 1.4 , resolved (8) Nausea & vomiting Current Visit: Yes Status: Acute Assessment and plan: on phenergan , tried zofran and reglan without good effect scopolamine patch considered Increased dose of dexamethasone to 4 mg QID Qualifiers: Vomiting type: unspecified Vomiting Intractability: intractable Qualified Code(s): R11.2 - Nausea with vomiting, unspecified - Time Spent With Patient Greater than 35 minutes - Subjective Interval history: Nausea and vomiting is better controlled, complaints of less abdominal pain, distention, has mild shortness of breath, no chest pain. No dysuria, no fevers - Constitutional Vitals: Temp Pulse Resp BP Pulse Ox 98.0 F 112 18 108/66 96 08/04/16 04:41 08/04/16 04:41 08/04/16 04:41 08/04/16 04:41 08/04/16 04:41 General appearance: Present: cachectic, A&O X 3, answers questions appropriately - Head Head exam: Present: atraumatic, normocephalic - Eye Eye exam: Present: PERRL, conjuntiva pink, sclera anicteric Pupils: Present: PERRL - Neck Neck exam general surgery: Present: supple, trachea midline. Absent: lymphadenopathy - Respiratory Respiratory exam: Present: CTAB. Absent: accessory muscle use, rales, rhonchi, wheezes - Cardiovascular Cardiovascular exam: Present: RRR, +S1, +S2. Absent: diastolic murmur, gallop, rubs, systolic murmur - GI/Abdominal GI/Abdominal exam: Present: distended (ascites , pleurex catheter in place), normal bowel sounds, soft, no peritoneal signs. Absent: tenderness - Extremities Exam Extremities exam: Present: warm, radial pulses palpable and symetrical. Absent : calf tenderness, cyanotic, pedal edema - Neurological Exam Neurological exam: Present: CN II-XII intact, oriented X3, no focal deficits. Absent: pronater drift, facial droop, speech deficit - Skin Skin exam: Present: dry, intact Internal Medicine: Result - Labs CBC & Chem 7: 08/03/16 15:28 08/03/16 04:30 Labs: Short CBC 08/03/16 Range/Units 15:28 WBC 9.2 (4.3-11.1) K/mcL Hgb 10.9 L (12.9-16.9) g/dL Hct 32.1 L (37.5-50.1) % Plt Count 165 (140-400) K/mcL Neutrophils # 7.1 (1.6-8.9) K/mcL - ABG Interpretation ABG results: PT/INR, D-dimer PT 12.5 Seconds (9.4-12.1) H 08/03/16 04:30 - Impressions Impressions Guidance Needle Placement Ultrasound 08/03/16 00:00 IMPRESSION: Successful ultrasound guided placement of peritoneal PleurX catheter D/ / Alex Hernández MD / Alex Hernández MD Interpreting Provider: Alex Hernández MD Retroperitoneal Abscess Drainage 08/03/16 00:00 IMPRESSION: Successful ultrasound guided placement of peritoneal PleurX catheter D/ / Alex Hernández MD / Alex Hernández MD Interpreting Provider: Alex Hernández MD Consult Discharge Plan - Plan Instructions: Scopolamine (Absorbed through the skin), Promethazine (By mouth) , Fentanyl (Absorbed through the skin), Dexamethasone (Injection), Hyponatremia (DC) Additional Instructions: Continue Dilaudid pump, fentanyl patch. Continue IV dexamethasone 4 mg every 6 hours and Phenergan when necessary to control nausea. TPN for nutritional service recommendations. Pleurx catheter management for ascites draining as needed. Increase salt intake Referrals: Saundra Stahl MD [Primary Care Provider] - 08/08/16 2:00 pm (Please follow up as schedule..) Prescriptions: Promethazine [Phenergan] 25 mg IVP Q4HR PRN #40 vial PRN Reason: Nausea And Vomiting Dexamethasone [Decadron] 4 mg IVP Q6H #50 vial FentaNYL PATCH [Duragesic] 100 mcg TD Q72H #10 patch.td72 Magnesium Oxide [Mag-Ox] 400 mg PO DAILY #30 tablet Scopolamine Patch [Transderm-Scop] 1.5 mg TD Q72H #10 patch.td72
== END 2016-08-04 13:45 | disposition home health service (06) | DRG 435 ==
LOC: EMEROO 17:42 → 2ANU 17:42 → SUATTDRO 23:25
PROVIDERS: ADMIT Internal Medicine; ATTEND Internal Medicine
PROC: IRDRAIN (2016-08-03 12:00)